=== PATIENT | female | born 1975 | race Caucasian/White ===

== ENCOUNTER 2017-02-12 08:02 | Emergency (ER) | payer MEDICAID ==
[2017-02-12] MEDS ORDERED: cefTRIAXone 1,000 MG in Lidocaine 1% 4 ML IM ONE (08:20)
--- NOTE | 2017-02-12 08:22 | EDM.PDOC ---
ED HPI GENERAL MEDICAL PROBLEM - General Chief Complaint: ENT Problem Stated Complaint: ILL, SORE THROAT,VOMITING Time Seen by Provider: 02/12/17 08:20 Source of Information: Reports: Patient - History of Present Illness INITIAL COMMENTS - FREE TEXT/NARRATIVE: HISTORY AND PHYSICAL: History of present illness: Sore throat increasing in severity over the last 2 weeks patient complains of intermittent fever chills sweats myalgias Some difficulty with solid food no difficulty with liquids, no hot potato voice drooling or trismus Review of systems: As per history of present illness and below otherwise all systems reviewed and negative. Past medical history: As per history of present illness and as reviewed below otherwise noncontributory. Surgical history: As per history of present illness and as reviewed below otherwise noncontributory. Social history: No reported history of drug or alcohol abuse. Family history: As per history of present illness and as reviewed below otherwise noncontributory. Physical exam: HEENT: Atraumatic, normocephalic, pupils reactive, negative for conjunctival pallor or scleral icterus, mucous membranes moist, throat clear, neck supple, nontender, trachea midline. Moderate erythema tonsils 2+ white patchy exudate no abscess Lungs: Clear to auscultation, breath sounds equal bilaterally, chest nontender. Heart: S1S2, regular, negative for clicks, rubs, or JVD. Abdomen: Soft, nondistended, nontender. Negative for masses or hepatosplenomegaly. Negative for costovertebral tenderness. Pelvis: Stable nontender. Genitourinary: Deferred. Rectal: Deferred. Extremities: Atraumatic, negative for cords or calf pain. Neurovascular unremarkable. Neuro: Awake, alert, oriented. Cranial nerves II through XII unremarkable. Cerebellum unremarkable. Motor and sensory unremarkable throughout. Exam nonfocal. Diagnostics: [] Therapeutics: []1 g Rocephin IM Amoxicillin 875 by mouth twice a day #20 no refill Impression: []Acute pharyngitis/tonsillitis Definitive disposition and diagnosis as appropriate pending reevaluation and review of above. Throat Pain Score (Numeric/FACES): 7 - Related Data Allergies Allergy/AdvReac Type Severity Reaction Status Date / Time No Known Allergies Allergy Verified 02/12/17 08:09 Home Meds: Home Meds . 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: None Musculoskeletal History: Reports: None Neurological History: Reports: None Psychiatric History: Reports: None Endocrine/Metabolic History: Reports: None Hematologic History: Reports: None Immunologic History: Reports: None Oncologic (Cancer) History: Reports: None Dermatologic History: Reports: None - Infectious Disease History Infectious Disease History: Reports: None - Past Surgical History Head Surgeries/Procedures: Reports: None HEENT Surgical History: Reports: None Respiratory Surgical History: Reports: None GI Surgical History: Reports: Bariatric Procedure, Other (See Below) Female Surgical History: Reports: Breast Reduction Musculoskeletal Surgical History: Reports: None Dermatological Surgical History: Reports: None Social & Family History - Family History Family Medical History: Noncontributory - Tobacco Use Smoking Status *Q: Never Smoker Second Hand Smoke Exposure: No - Caffeine Use Caffeine Use: Reports: Coffee - Alcohol Use Days Per Week of Alcohol Use: 1 Number of Drinks Per Day: 2 Total Drinks Per Week: 2 - Recreational Drug Use Recreational Drug Use: No ED ROS GENERAL - Review of Systems Review Of Systems: ROS reveals no pertinent complaints other than HPI. ED EXAM, GENERAL - Physical Exam Exam: See Below Course - Vital Signs Last Recorded V/S: Last Vital Signs Temp 36.1 C 02/12/17 08:09 Pulse 106 H 02/12/17 08:09 Resp 18 02/12/17 08:09 BP 120/73 02/12/17 08:09 Pulse Ox 97 02/12/17 08:09 - Orders/Labs/Meds Orders: Active Orders 24 hr Category Date Time Status cefTRIAXone [Rocephin] 1,000 mg Med 02/12/17 08:20 Ordered Lidocaine 1% [Xylocaine-MPF 1%] 4 ml IM ONETIME Departure - Departure Time of Disposition: 08:22 Disposition: Home, Self-Care 01 Condition: Good Clinical Impression: Pharyngitis Clinical Impression: (Ruled Out): Tonsillitis - Discharge Information Referrals: PCP,None [Primary Care Provider] - Additional Instructions: Medication as prescribed Return if symptoms persist or worsen Follow-up with primary care as needed The following information is given to patients seen in the emergency department who are being discharged to home. This information is to outline your options for follow-up care. We provide all patients seen in our emergency department with a follow-up referral. The need for follow-up, as well as the timing and circumstances, are variable depending upon the specifics of your emergency department visit. If you don't have a primary care physician on staff, we will provide you with a referral. We always advise you to contact your personal physician following an emergency department visit to inform them of the circumstance of the visit and for follow-up with them and/or the need for any referrals to a consulting specialist. The emergency department will also refer you to a specialist when appropriate. This referral assures that you have the opportunity for follow-up care with a specialist. All of these measure are taken in an effort to provide you with optimal care, which includes your follow-up. Under all circumstances we always encourage you to contact your private physician who remains a resource for coordinating your care. When calling for follow-up care, please make the office aware that this follow-up is from your recent emergency room visit. If for any reason you are refused follow-up, please contact the [facility] emergency department at and asked to speak to the emergency department charge nurse. - My Orders Last 24 Hours: My Active Orders 02/12/17 08:20 cefTRIAXone [Rocephin] 1,000 mg Lidocaine 1% [Xylocaine-MPF 1%] 4 ml IM ONETIME - Assessment/Plan Last 24 Hours: My Active Orders 02/12/17 08:20 cefTRIAXone [Rocephin] 1,000 mg Lidocaine 1% [Xylocaine-MPF 1%] 4 ml IM ONETIME
[2017-02-12 08:52] VITALS: BP 135/66
== END 2017-02-12 08:50 | disposition home or self-care (01) ==
LOC: MW.ED 08:02
DX: J02.9 Acute pharyngitis, unspecified (principal); Z98.84 Bariatric surgery status
CPT/HCPCS: 96372; 99283; J0696; 99282

== ENCOUNTER 2017-03-11 12:18 | Emergency (ER) | payer MEDICAID ==
[2017-03-11] MEDS ORDERED: Alum Hydrox/Mag Hydrox/Simeth 15 ML, Metoclopramide 5 MG, Lidocaine 2% 5 ML PO ONE ×3 (12:54)
--- NOTE | 2017-03-11 12:57 | EDM.PDOC ---
ED HPI GENERAL MEDICAL PROBLEM - General Chief Complaint: Gastrointestinal Problem Stated Complaint: BAD HEART BURN Time Seen by Provider: 03/11/17 12:54 Source of Information: Reports: Patient History Limitations: Reports: No Limitations - History of Present Illness INITIAL COMMENTS - FREE TEXT/NARRATIVE: HISTORY AND PHYSICAL: []42-year-old female presenting with increased heartburn History of Present Illness: []Patient has had this for some time she's been treated last week with this and a sore throat. 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 Past medical history: As per history of present illness and as reviewed below otherwise noncontributory. Surgical history: As per history of present illness and as reviewed below otherwise noncontributory. Social history: No reported history of drug or alcohol abuse. Family history: As per history of present illness and as reviewed below otherwise noncontributory. Physical exam: Alert and oriented female. speaking well in full sentences without any shortness of breath. She is nontoxic in appearance HEENT: Atraumatic, normocehpalic, pupils reactive, negative for conjunctival pallor or scleral icterus, mucous membranes moist, throat clear, neck supple, nontender, trachea midline. Lungs: Clear to auscultation, breath sounds equal bilaterally, chest non tender. Heart: S1S2, regular, negative for clicks, rubs, or JVD. Abdomen: Soft, nondistended, nontender. Negative for masses or hepatossplenmegaly. Negative for costovertebral tenderness. Pelvis: Stable nontender. Genitourinary: Deferred. Rectal: Deferred Extremities: Atraumatic, negative for cords or calf pain. Neurovascular unremarkable. Neuro: Awake, alert, oriented. Cranial nerves II through XII unremarkable. Cerebellum unremarkable. Motor and sensory unremarkable throughout. Exam nonfocal. Improved greatly with the GI cocktail. Due to your previous history with lap band /gastric bypass surgery and made a referral for gastroenterology to review your case. Diagnostics: [] Therapeutics: [GI cocktail] Impression: [Gastritis] Plan: [Discharged to home Referral to motion picture set worker at [facility]] Definitive disposition and diagnosis as appropriate pending reevaluation and review of above. Epigastric Pain Score (Numeric/FACES): 8 - Related Data Allergies Allergy/AdvReac Type Severity Reaction Status Date / Time No Known Allergies Allergy Verified 02/12/17 08:09 Home Meds: Home Meds . [No Known Home Meds] 10/15/15 [History] Past Medical History - Past Health History Medical/Surgical History: Denies Medical/Surgical History HEENT History: Reports: None Cardiovascular History: Reports: None Respiratory History: Reports: None Gastrointestinal History: Reports: None Genitourinary History: Reports: None CLINICAL TRIAL EDUCATOR History: Reports: None Musculoskeletal History: Reports: None Neurological History: Reports: None Psychiatric History: Reports: None Endocrine/Metabolic History: Reports: None Hematologic History: Reports: None Immunologic History: Reports: None Oncologic (Cancer) History: Reports: None Dermatologic History: Reports: None - Infectious Disease History Infectious Disease History: Reports: None - Past Surgical History Head Surgeries/Procedures: Reports: None HEENT Surgical History: Reports: None Respiratory Surgical History: Reports: None GI Surgical History: Reports: Bariatric Procedure, Other (See Below) Female Surgical History: Reports: Breast Reduction Musculoskeletal Surgical History: Reports: None Dermatological Surgical History: Reports: None Social & Family History - Family History Family Medical History: Noncontributory - Tobacco Use Smoking Status *Q: Never Smoker Second Hand Smoke Exposure: No - Caffeine Use Caffeine Use: Reports: Coffee - Alcohol Use Days Per Week of Alcohol Use: 1 Number of Drinks Per Day: 2 Total Drinks Per Week: 2 - Recreational Drug Use Recreational Drug Use: No ED ROS GENERAL - Review of Systems Review Of Systems: ROS reveals no pertinent complaints other than HPI. ED EXAM, GI/ABD - Physical Exam Exam: See Below (see dictation) Course - Vital Signs Last Recorded V/S: Last Vital Signs Temp 36.9 C 03/11/17 12:46 Pulse 90 03/11/17 12:46 Resp 18 03/11/17 12:46 BP 113/75 03/11/17 12:46 Pulse Ox 97 03/11/17 12:46 - Orders/Labs/Meds Meds: Medications Discontinued Medications Generic Name Dose Route Start Last Admin Trade Name Freq PRN Reason Stop Dose Admin Al Hydroxide/Mg Hydroxide 15 0 ml 03/11/17 12:54 03/11/17 13:08 ml/ Metoclopramide HCl 5 mg/ PO 03/11/17 12:55 25 each Lidocaine HCl 5 ml ONETIME ONE Administration Departure - Departure Time of Disposition: 13:18 Disposition: Home, Self-Care 01 Condition: Good Clinical Impression: Gastritis - Discharge Information Referrals: PCP,None [Primary Care Provider] - Sintia Esposito [Ordering Only Provider] - Forms: ED Department Discharge Additional Instructions: The following information is given to patients seen in the emergency department who are being discharged to home. This information is to outline your options for follow-up care. We provide all patients seen in our emergency department with a follow-up referral. The need for follow-up, as well as the timing and circumstances, are variable depending upon the specifics of your emergency department visit. If you don't have a primary care physician on staff, we will provide you with a referral. We always advise you to contact your personal physician following an emergency department visit to inform them of the circumstance of the visit and for follow-up with them and/or the need for any referrals to a consulting specialist. The emergency department will also refer you to a specialist when appropriate. This referral assures that you have the opportunity for followup care with a specialist. All of these measure are taken in an effort to provide you with optimal care, which includes your followup. Under all circumstances we always encourage you to contact your private physician who remains a resource for coordinating your care. When calling for followup care, please make the office aware that this follow-up is from your recent emergency room visit. If for any reason you are refused follow-up, please contact the [facility] emergency department at and asked to speak to the emergency department charge nurse. Your gastric pain was relieved with the use of a GI cocktail This is a combination of Mylanta or Riopan lidocaine added to Referral has been made for you to see motion picture set worker Sintia Esposito MD [phone] [facility] [address] [place] [address], [place] [id number]
[2017-03-11 13:34] VITALS: BP 115/75
== END 2017-03-11 13:30 | disposition home or self-care (01) ==
LOC: MW.ED 12:18
DX: K29.70 Gastritis, unspecified, without bleeding (principal); Z98.84 Bariatric surgery status; Z98.890 Other specified postprocedural states
CPT/HCPCS: 99283; A9270; 99282

== ENCOUNTER 2017-07-05 20:29 | Observation (INO) | payer MEDICAID ==
--- NOTE | 2017-07-05 20:42 | EDM.PDOC ---
ED HPI GENERAL MEDICAL PROBLEM - General Stated Complaint: PT LT SIDE NUMB Time Seen by Provider: 07/05/17 20:36 - History of Present Illness INITIAL COMMENTS - FREE TEXT/NARRATIVE: HISTORY AND PHYSICAL: History of present illness: Patient 42-year-old female with no significant past medical history who presents with concern of left-sided pain that goes from her inferior extremitie up to her Left arm shoulder and face she also complains of some paresthesia in the same distribution she denies trauma denies chest pain palpitations shortness of breath visual disturbance or any other numbness weakness or neurological sign or symptom patient states the symptoms began approximately 5:00 PM Review of systems: As per history of present illness and below otherwise all systems reviewed and negative. Past medical history: As per history of present illness and as reviewed below otherwise noncontributory. Surgical history: As per history of present illness and as reviewed below otherwise noncontributory. Social history: No reported history of drug or alcohol abuse. Family history: As per history of present illness and as reviewed below otherwise noncontributory. Physical exam: HEENT: Atraumatic, normocephalic, pupils reactive, negative for conjunctival pallor or scleral icterus, mucous membranes moist, throat clear, neck supple, nontender, trachea midline. Lungs: Clear to auscultation, breath sounds equal bilaterally, chest nontender. Heart: S1S2, regular, negative for clicks, rubs, or JVD. Abdomen: Soft, nondistended, nontender. Negative for masses or hepatosplenomegaly. Negative for costovertebral tenderness. Pelvis: Stable nontender. Genitourinary: Deferred. Rectal: Deferred. Extremities: Atraumatic, negative for cords or calf pain. Neurovascular unremarkable. Neuro: Awake, alert, oriented. Cranial nerves II through XII unremarkable. Cerebellum unremarkable. Motor and sensory unremarkable throughout. Exam nonfocal. Diagnostics: CBC CMP and troponin PT/INR chest x-ray EKG CT brain Therapeutics: IV O2 monitor Impression: #1 left sided pain/paresthesia etiology being determined Definitive disposition and diagnosis as appropriate pending reevaluation and review of above. 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: None Musculoskeletal History: Reports: None Neurological History: Reports: None Psychiatric History: Reports: None Endocrine/Metabolic History: Reports: None Hematologic History: Reports: None Immunologic History: Reports: None Oncologic (Cancer) History: Reports: None Dermatologic History: Reports: None - Infectious Disease History Infectious Disease History: Reports: None - Past Surgical History Head Surgeries/Procedures: Reports: None HEENT Surgical History: Reports: None Respiratory Surgical History: Reports: None GI Surgical History: Reports: Bariatric Procedure, Other (See Below) Female Surgical History: Reports: Breast Reduction Musculoskeletal Surgical History: Reports: None Dermatological Surgical History: Reports: None Social & Family History - Family History Family Medical History: Noncontributory - Tobacco Use Smoking Status *Q: Never Smoker Second Hand Smoke Exposure: No - Caffeine Use Caffeine Use: Reports: Coffee - Alcohol Use Days Per Week of Alcohol Use: 1 Number of Drinks Per Day: 2 Total Drinks Per Week: 2 - Recreational Drug Use Recreational Drug Use: No ED ROS GENERAL - Review of Systems Review Of Systems: ROS reveals no pertinent complaints other than HPI. ED EXAM, GENERAL - Physical Exam Exam: See Below (See dictation) Course - Vital Signs Last Recorded V/S: Last Vital Signs Temp 36.6 C 07/05/17 20:38 Pulse 76 07/05/17 20:38 Resp 14 07/05/17 20:38 BP 127/79 07/05/17 20:38 Pulse Ox 97 07/05/17 20:38 - Orders/Labs/Meds Orders: Active Orders 24 hr Category Date Time Status EKG Documentation Completion [RC] STAT Care 07/05/17 21:18 Active Chest 1V Frontal [CR] Stat Exams 07/05/17 21:18 Taken Head wo Cont [CT] Stat Exams 07/05/17 Taken Departure - Departure Time of Disposition: 21:26 Disposition: Refer to Observation Condition: Good Clinical Impression: Paresthesia - Discharge Information Referrals: PCP,None [Primary Care Provider] - - My Orders Last 24 Hours: My Active Orders 07/05/17 Head wo Cont [CT] Stat 01/23/18 21:18 EKG Documentation Completion [RC] STAT Chest 1V Frontal [CR] Stat - Assessment/Plan Last 24 Hours: My Active Orders 07/05/17 Head wo Cont [CT] Stat 07/05/17 21:18 EKG Documentation Completion [RC] STAT Chest 1V Frontal [CR] Stat
[2017-07-05 21:49] LABS: CHLORIDE,CL 101 mmol/L (98-110); SODIUM,NA 134 mmol/L (136-146)
[2017-07-05] MEDS ORDERED: Aspirin 325 MG Tab.EC PO STA (23:31)
[2017-07-05] MEDS: Acetaminophen 325 MG Tab PO PRN (23:51)
[2017-07-06] MEDS: Acetaminophen 325 MG Tab PO PRN (08:20)
--- NOTE | 2017-07-06 11:47 | PCM.HP ---
H&P History of Present Illness - General Date of Service: 07/06/17 Admit Problem/Dx: Admission Diagnosis/Problem Admission Diagnosis/Problem Paresthesia History Limitations: Reports: No Limitations - History of Present Illness Initial Comments - Free Text/Narative: This is a 42-year-old female with no significant past medical history that presented to the emergency department with a chief complaint of left-sided weakness. After talking to the patient, she tells me that since approximately 7 PM yesterday evening, she has been feeling a headache, along with weakness in the left hand starting from the shoulder along with her left leg. She combines this with a headache as well. She also goes on to say that she experiences poorly localized shoulder pain that may involve her chest when she moves her left shoulder. Shoulder pain is dull, 5 out of 10 and persistent since 7:00. She tells me that this began when she was standing up in her kitchen and began to feel lightheaded. Denies any syncope or any seizure activity. She denies any sick contacts, recent travel. Denies any fevers chills. She had an episode of vomiting while in the emergency department. ER course: Head CT unremarkable CBC mild normocytic anemia hemoglobin of 11.9 Troponin 1 negative EKG negative Head CT unremarkable Chest x-ray unremarkable After going through her chart, it does appear that this patient has had similar symptoms in the past despite her telling me that this is a completely new onset of headache and left-sided weakness. head/neck Pain Score (Numeric/FACES): 6 - Related Data Allergies/Adverse Reactions: Allergies Allergy/AdvReac Type Severity Reaction Status Date / Time No Known Allergies Allergy Verified 07/05/17 20:55 Home Medications: Home Meds Otc Antacid 07/05/17 [History] Past Medical History - Past Health History Medical/Surgical History: Denies Medical/Surgical History HEENT History: Reports: None Cardiovascular History: Reports: None Respiratory History: Reports: None Gastrointestinal History: Reports: None Genitourinary History: Reports: None VALIDATION SPECIALIST History: Reports: None Musculoskeletal History: Reports: None Neurological History: Reports: None Psychiatric History: Reports: None Endocrine/Metabolic History: Reports: None Hematologic History: Reports: None Immunologic History: Reports: None Oncologic (Cancer) History: Reports: None Dermatologic History: Reports: None - Infectious Disease History Infectious Disease History: Reports: None - Past Surgical History Head Surgeries/Procedures: Reports: None HEENT Surgical History: Reports: None Respiratory Surgical History: Reports: None GI Surgical History: Reports: Bariatric Procedure, Other (See Below) Female Surgical History: Reports: Breast Reduction Musculoskeletal Surgical History: Reports: None Dermatological Surgical History: Reports: None Social & Family History - Family History Family Medical History: Noncontributory - Tobacco Use Smoking Status *Q: Never Smoker Second Hand Smoke Exposure: No - Caffeine Use Caffeine Use: Reports: Coffee - Alcohol Use Days Per Week of Alcohol Use: 1 Number of Drinks Per Day: 2 Total Drinks Per Week: 2 - Recreational Drug Use Recreational Drug Use: No H&P Review of Systems - Review of Systems: Review Of Systems: See Below General: Reports: Weakness HEENT: Reports: Headaches Pulmonary: Reports: No Symptoms Cardiovascular: Reports: Chest Pain Gastrointestinal: Reports: No Symptoms Genitourinary: Reports: No Symptoms Musculoskeletal: Reports: No Symptoms Skin: Reports: No Symptoms Psychiatric: Reports: No Symptoms Neurological: Reports: Headache, Weakness Hematologic/Lymphatic: Reports: No Symptoms Immunologic: Reports: No Symptoms Exam - Exam Exam: See Below - Vital Signs Vital Signs: Last Vital Signs Temp 36.6 C 07/06/17 08:00 Pulse 70 07/06/17 08:00 Resp 18 07/06/17 08:00 BP 98/59 L 07/06/17 08:00 Pulse Ox 96 07/06/17 08:00 Weight: 68.765 kg - Exam General: Alert, Oriented, Cooperative HEENT: Conjunctiva Clear, EACs Clear Neck: Supple, Trachea Midline Lungs: Clear to Auscultation, Normal Respiratory Effort Cardiovascular: Regular Rate, Regular Rhythm, Normal S1 GI/Abdominal Exam: Normal Bowel Sounds, Soft Back Exam: Normal Inspection, Full Range of Motion Extremities: Normal Inspection, Normal Range of Motion Peripheral Pulses: 3+: Posterior Tibial (L), Posterior Tibial (R) Neurological: Cranial Nerves Intact, Reflexes Equal Bilateral, Strength Equal Bilateral, Normal Gait, Normal Speech, Normal Tone, Sensation Intact. No: Focal Deficit, Babinski, Hyperreflexia, Hyporeflexia Neuro Extensive - Mental Status: Alert, Oriented x3, Normal Mood/Affect, Normal Cognition, Memory Intact Neuro Extensive - Motor, Sensory, Reflexes: CN II-XII Intact, Normal Gait, Normal Reflexes Psychiatric: Alert, Normal Affect, Normal Mood - Patient Data Lab Results Last 24 hrs: Laboratory Results - last 24 hr 07/06/17 07/06/17 Range/Units 03:18 09:09 Troponin I < 0.10 < 0.10 (0.0-0.29) NG/ML Result Diagrams: 07/05/17 21:18 07/05/17 21:18 *Q Meaningful Use (ADM) - VTE *Q VTE Criteria *Q: - Stroke *Q Stroke Criteria *Q: - AMI *Q AMI Criteria *Q: Problem List Initiated/Reviewed/Updated: Yes Orders Last 24hrs: Active Orders 24 hr Category Date Time Status Cardiac Monitoring [RC] . DIRECTED Care 07/05/17 22:20 Active Regular Diet [DIET] Diet 07/06/17 Breakfast Active Venous Doppler Lwr Ext Lt [US] Urgent Exams 07/06/17 10:01 Ordered Acetaminophen [Tylenol] Med 07/05/17 23:32 Active 650 mg PO Q6H PRN Medication Orders Acetaminophen (Tylenol) 650 mg PO Q6H PRN PRN Reason: Pain Last Admin: 07/06/17 08:20 Dose: 650 mg Admin: 07/05/17 23:51 Dose: 650 mg Assessment/Plan Comment:: Assessment: #1. Headache with left-sided weakness #2. Left shoulder pain with possible chest pain #3. ACS rule out #4. Mild normocytic anemia #5. History of headaches and left-sided weakness Plan: #1. Admit to the floor for observation. Vital signs per floor routine. Cardiac telemetry #2. Full dose aspirin #3. Serum beta hCG prior to MRI #4. MRI brain with and without contrast #5. Troponin 3 #6. I touched base with neurology and discussed this case. It appears that this patient has been seen by neurology in the past as an outpatient for similar symptoms however she no showed when an MRI was ordered. Working diagnosis for now is likely migraine with sensory symptoms. However, we will see what the MRI shows and proceed accordingly. #7. B12, TSH
--- NOTE | 2017-07-06 11:51 | US ---
ULTRASOUND EXAMINATION OF the left lower extremity WITH DOPPLER HISTORY: Pain FINDINGS: Examination of the left leg was performed from the groin to the calf region. All visualized segments including common femoral, proximal greater saphenous, superficial femoral, popliteal and calf veins appear patent with good compressibility and augmentation. There is no evidence of deep vein thrombos is. IMPRESSION: No evidence of a DVT.
[2017-07-06] MEDS ORDERED: Gadobenate Dimeglumine 529 MG/ML 20 ML SDV IVPUSH STA (11:55)
[2017-07-06] MEDS ORDERED: Ondansetron 4 MG/2 ML SDV IVPUSH PRN (12:04)
--- NOTE | 2017-07-06 13:54 | MR ---
EXAMINATION: MRI of the brain with and without contrast. TECHNIQUE: Multiplanar and multisequence imaging of the brain without and following 13 cc of Multiha nce contrast. HISTORY: Left-sided weakness. FINDINGS: Cerebral hemispheres and the deep nuclei are without hemorrhage, mass, edema, gliosis, enhancement or atrophy. No extraaxial collections or hemorrhage. The ventricular system is of normal size and con figuration without hydrocephalus. No evidence for globe flattening, small ventricles or partially emp ty sella to suggest pseudotumor cerebri. No abnormal diffusion restriction. Brainstem and cerebellum are without hemorrhage, mass, edema, gliosis, enhancement or atrophy. Carot id basilar artery flow voids are intact. The otomastoid airspaces are clear. No internal auditory c anal or cerebellopontine angle masses or enhancement. Moderate mucus retention cyst within the left m axillary sinus. Globes, optic nerves, orbital apices, optic chiasm, optic tracts, and visual cortices are unremarkab le. The pituitary and sella turcica are unremarkable. No meningeal enhancement. The craniocervical junction is unremarkable. No siderosis or evidence of vascular malformation. The calvarium is inta ct. IMPRESSION: 1. No acute intracranial findings.
[2017-07-06] MEDS ORDERED: diphenhydrAMINE 50 MG/ML SDV IVPUSH STA (14:15)
[2017-07-06] MEDS ORDERED: Prochlorperazine 10 MG in Sodium Chloride 0.9% 50 ML IV STA (14:15)
--- NOTE | 2017-07-06 14:21 | PCM.DCSUM1 ---
Discharge Summary - Hospital Course Free Text/Narrative:: Admission date: June Discharge date: July 06, 2017 Admission diagnosis: #1. Left sided weakness #2. ACS Rule out #3. Headache Discharge Diagnosis: #1. Migraine with sensory symptoms #2. ACS ruled out #3. History of migraines Hospital course: 42 year old female with a history of migraines that presented complaining of left sided weakness and possible chest pain as well. Emergency room workup included a negative head CT. She was given a full dose aspirin. Patient was admitted for possible stroke/ACS work up. Patients case was discussed with neurology who recommended a brain MRI for possible infarction. This result was negative. Troponin x3 was negative. No events on telemetry. Patient had no chest pain at the time of discharge. Her headache was less severe and tolerable. Advised to return if symptoms worsen or return. She is to follow up with Dr. Banks, neurology and PCP, Dr. Post. - Discharge Data Discharge Date: 07/06/17 Discharge Disposition: Home, Self-Care 01 Condition: Fair - Patient Instructions Diet: Usual Diet as Tolerated Activity: As Tolerated Notify Provider of: Increased Pain, Nausea and/or Vomiting Other/Special Instructions: headache - Discharge Plan Home Medications: Home Meds Otc Antacid 07/05/17 [History] Forms: ED Department Discharge Referrals: PCP,Ellis [Primary Care Provider] - Mandeep Post MD [Resident] - Radha Banks MD [Physician] - - Discharge Summary/Plan Comment Discharge Summary/Plan Comment: Admission date: June Discharge date: July 06, 2017 Admission diagnosis: #1. Left sided weakness #2. ACS Rule out #3. Headache Discharge Diagnosis: #1. Migraine with sensory symptoms #2. ACS ruled out #3. History of migraines Hospital course: 42 year old female with a history of migraines that presented complaining of left sided weakness and possible chest pain as well. Emergency room workup included a negative head CT. She was given a full dose aspirin. Patient was admitted for possible stroke/ACS work up. Patients case was discussed with neurology who recommended a brain MRI for possible infarction. This result was negative. Troponin x3 was negative. No events on telemetry. Patient had no chest pain at the time of discharge. Her headache was less severe and tolerable. Advised to return if symptoms worsen or return. She is to follow up with Dr. Banks, neurology and PCP, Dr. Post. - Patient Data Vitals - Most Recent: Last Vital Signs Temp 36.6 C 07/06/17 08:00 Pulse 70 07/06/17 08:00 Resp 18 07/06/17 08:00 BP 98/59 L 07/06/17 08:00 Pulse Ox 96 07/06/17 08:00 Weight - Most Recent: 68.765 kg I&O - Last 24 hours: Intake & Output 07/05/17 07/06/17 07/06/17 22:59 06:59 14:59 Intake Total 200 Output Total 900 Balance -700 Lab Results - Last 24 hrs: Laboratory Results - last 24 hr 07/06/17 07/06/17 07/06/17 Range/Units 03:18 09:09 12:40 Troponin I < 0.10 < 0.10 (0.0-0.29) NG/ML Vitamin B12 (200-1100) PG/ML TSH 3rd Generation 1.42 (0.47-5.0) uIU/mL 07/06/17 Range/Units 12:40 Troponin I (0.0-0.29) NG/ML Vitamin B12 449 (200-1100) PG/ML TSH 3rd Generation (0.47-5.0) uIU/mL Med Orders - Current: Current Medications Acetaminophen (Tylenol) 650 mg PO Q6H PRN PRN Reason: Pain Last Admin: 07/06/17 08:20 Dose: 650 mg Diphenhydramine HCl (Benadryl) 25 mg IVPUSH ONETIME STA Stop: 07/06/17 14:16 Enoxaparin Sodium (Lovenox) 40 mg SUBCUT DAILY GENNY Prochlorperazine Edisylate 10 (mg/ Sodium Chloride) 52 mls @ 150 mls/hr IV ONETIME STA Stop: 07/06/17 14:35 Ondansetron HCl (Zofran) 4 mg IVPUSH Q4H PRN PRN Reason: Nausea Discontinued Medications Aspirin (Ecotrin) 325 mg PO STAT STA Stop: 07/05/17 23:32 Last Admin: 07/05/17 23:50 Dose: 325 mg Gadobenate Dimeglumine (Multihance) 20 ml IVPUSH ONETIME STA Stop: 07/06/17 11:56 Last Admin: 07/06/17 12:05 Dose: 13 ml *Q Meaningful Use (DIS) - VTE *Q VTE Criteria *Q: - Stroke *Q Stroke Criteria *Q: - AMI *Q AMI Criteria *Q:
[2017-07-06] MEDS ORDERED: Prochlorperazine 10 MG/2 ML SDV IV ONE (14:30)
[2017-07-06 18:09] VITALS: BP 100/54
[2017-07-07] MEDS ORDERED: Enoxaparin 40 MG/0.4 ML Syringe SUBCUT SCH (09:00)
--- NOTE | 2017-07-07 15:45 | CT ---
EXAM DATE: 07/05/17 PATIENT'S AGE: 42 Patient: CHENCHO ABBOTT Facility: [place], [place] Site Site : 1975 Study: CT Head STROKE PROTOCOL WO CONT [id number]/[id number] 8:55:55 PM Ordering Physician: TOÑO ANDRADE MD Final Report: INDICATION: Left-sided weakness TECHNIQUE: CT head without contrast. COMPARISON: Ascites 4 slice 60. FINDINGS: CSF spaces: Within normal limits for age. Brain parenchyma: The piña-white differentiation is normal. No sign of mass, hemorrhage, or midline shift. Skull base and calvarium: Probable left maxillary sinus retention cyst The visualized orbits are grossly unremarkable. No skull fractures. IMPRESSION: No acute intracranial abnormalities. Please note that all CT scans at this facility use dose modulation, iterative reconstruction, and/or weight-based dosing when appropriate to reduce radiation dose to as low as reasonably achievable. Dictated by Federico Franco MD @ Jul 05 2017 8:59PM ----- ADDENDUM ----- Confirmation of report received on 07/05/2017 at 9:12 p.m. with KATHY Brooks: Dictated by Federico Franco MD @ Jul 05 2017 9:43PM (Electronic Signature) Report Signed by Proxy. LISA
--- NOTE | 2017-07-07 15:45 | CR ---
EXAM DATE: 07/05/17 PATIENT'S AGE: 42 Patient: CHENCHO ABBOTT Facility: [place], [place] Site . Site : 1975 Study: XRay Chest [id number]/23/2018 9:23:21 PM Ordering Physician: Jhonny Eli Final Report: HISTORY: Stroke code, left-sided weakness starting at noon. FINDINGS: AP portable chest radiograph is compared with 27 Oct 2015. The cardiac silhouette is acceptable size. Pulmonary vasculature is free of cephalization. No lobar consolidation or pleural effusion is seen. Bony structures are normal for age. IMPRESSION: No acute cardiopulmonary disease or infiltrate. Dictated by Sarah Cazares MD @ 07/05/2017 9:48:02 PM Dictated by: Sarah Cazares MD @ 07/05/2017 21:48:15 (Electronic Signature) Report Signed by Proxy. [facility] HOSPITALKaylene
== END 2017-07-06 18:10 | disposition home or self-care (01) ==
LOC: MW.ED 20:29 → MW.MS 22:06
PROVIDERS: ADMIT Internal Medicine; ATTEND Internal Medicine
DX: G43.109 Migraine with aura, not intractable, without status migrainosus (principal); D64.9 Anemia, unspecified
CPT/HCPCS: 36415; 70450; 70553; 71045; 80053; 82553; 82607; 83735; 84443; 84484; 84703; 85025; 85610; 93005; 93971; 96374; 96375; 99285; A9270; A9577; G0378; J0780; J1200; J2405; 99284

== ENCOUNTER 2019-02-22 15:35 | Emergency (ER) | payer BC ==
[2019-02-22] MEDS ORDERED: Sodium Chloride 0.9% 1,000 ML IV ONE (16:06)
[2019-02-22] MEDS ORDERED: Ketorolac 30 MG/ML SDV IVPUSH ONE (16:06)
[2019-02-22] MEDS ORDERED: Ondansetron 4 MG/2 ML SDV IVPUSH ONE (16:06)
--- NOTE | 2019-02-22 16:15 | EDM.PDOC ---
ED HPI GENERAL MEDICAL PROBLEM - General Chief Complaint: General Stated Complaint: NOT FEELING WELL Time Seen by Provider: 02/22/19 15:40 Source of Information: Reports: Patient History Limitations: Reports: No Limitations - History of Present Illness INITIAL COMMENTS - FREE TEXT/NARRATIVE: HISTORY AND PHYSICAL: History of present illness: Patient is a 44-year-old female presents to the ED today with concern of left- sided abdominal pain, nausea, and cough 1-1/2 weeks. Patient states a week ago she was seen in the clinic and had some lab work done and was told she had a bacterial infection but she is unsure what the infection was was placed on amoxicillin. Patient states she just finished her amoxicillin but states she's not feeling any better. Patient states that she has had a few day decrease in her appetite over the past couple days because she feels continuously nauseous. Patient states she does have a lap band in place. Patient denies any health history. Patient denies fever, chills, chest pain, shortness of breath. Denies headache, neck stiff ness, change in vision, syncope, or near syncope. Denies vomiting, diarrhea, constipation, or dysuria. Has not noted any blood in urine or stool. Review of systems: As per history of present illness and below otherwise all systems reviewed and negative. Past medical history: As per history of present illness and as reviewed below otherwise noncontributory. Surgical history: As per history of present illness and as reviewed below otherwise noncontributory. Social history: See social history for further information Family history: As per history of present illness and as reviewed below otherwise noncontributory. Physical exam: General: Patient is alert, oriented, and in no acute distress. Patient sitting comfortably on exam table. HEENT: Atraumatic, normocephalic, pupils equal and reactive bilaterally, negative for conjunctival pallor or scleral icterus, mucous membranes moist, TMs normal bilaterally, throat clear, neck supple, nontender, trachea midline. No drooling or trismus noted. No meningeal signs. No hot potato voice noted. Lungs: Clear to auscultation, breath sounds equal bilaterally, chest nontender. Heart: S1S2, regular rate and rhythm without overt murmur Abdomen: Soft, nondistended, mild tenderness to the left-sided abdomen. Scarring consistent with surgical history. Negative for masses or hepatosplenomegaly. Negative for costovertebral tenderness. Pelvis: Stable nontender. Genitourinary: Deferred. Rectal: Deferred. Skin: Intact, warm, dry. No lesions or rashes noted. Extremities: Atraumatic, negative for cords or calf pain. Neurovascular unremarkable. Neuro: Awake, alert, oriented. Cranial nerves II through XII unremarkable. Cerebellum unremarkable. Motor and sensory unremarkable throughout. Exam nonfocal. Notes: Discussed the importance for follow-up with primary care provider Voices understanding and is agreeable to plan of care. Denies any further questions or concerns at this time. Diagnostics: CBC, CMP, UA, hCG, chest x-ray, EKG, lipase, abdominal pelvic CT Therapeutics: Saline, Zofran, Toradol Prescription: None Impression: Left sided abdominal pain Constipation Anemia Plan: 1. Drink one half bottle of magnesium citrate tonight. Do not have a bowel movement by tomorrow morning drink the other one half bottle. 2. Follow-up with your primary care provider as discussed. Return to the ED as needed and as discussed. 3. You can alternate ibuprofen and Tylenol as directed for pain and discomfort. Definitive disposition and diagnosis as appropriate pending reevaluation and review of above. Generalized Pain Score (Numeric/FACES): 7 - Related Data Allergies Allergy/AdvReac Type Severity Reaction Status Date / Time No Known Allergies Allergy Verified 02/22/19 16:03 Home Meds: Home Meds . 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 Musculoskeletal History: Reports: None Neurological History: Reports: None Psychiatric History: Reports: None Endocrine/Metabolic History: Reports: None Hematologic History: Reports: None Immunologic History: Reports: None Oncologic (Cancer) History: Reports: None Dermatologic History: Reports: None - Infectious Disease History Infectious Disease History: Reports: None - Past Surgical History Head Surgeries/Procedures: Reports: None HEENT Surgical History: Reports: None Respiratory Surgical History: Reports: None GI Surgical History: Reports: Bariatric Procedure, Other (See Below) Female Surgical History: Reports: Breast Reduction, Section Musculoskeletal Surgical History: Reports: None Dermatological Surgical History: Reports: None Social & Family History - Family History Family Medical History: Noncontributory - Tobacco Use Smoking Status *Q: Never Smoker - Caffeine Use Caffeine Use: Reports: Coffee - Recreational Drug Use Recreational Drug Use: No ED ROS GENERAL - Review of Systems Review Of Systems: ROS reveals no pertinent complaints other than HPI. ED EXAM, GENERAL - Physical Exam Exam: See Below (See dictation) Course - Vital Signs Last Recorded V/S: Last Vital Signs Temp 36.9 C 02/22/19 15:58 Pulse 79 02/22/19 15:58 Resp 18 02/22/19 15:58 BP 114/80 02/22/19 15:58 Pulse Ox 100 02/22/19 15:58 - Orders/Labs/Meds Orders: Active Orders 24 hr Category Date Time Status EKG Documentation Completion [RC] STAT Care 02/22/19 16:07 Active Labs: Laboratory Tests 02/22/19 02/22/19 02/22/19 Range/Units 16:18 16:18 16:18 WBC 6.27 (4.0-11.0) K/uL RBC 3.95 L (4.30-5.90) M/uL Hgb 10.5 L (12.0-16.0) g/dL Hct 34.2 L (36.0-46.0) % MCV 86.6 (80.0-98.0) fL MCH 26.6 L (27.0-32.0) pg MCHC 30.7 L (31.0-37.0) g/dL RDW Std Deviation 57.4 (28.0-62.0) fl RDW Coeff of Rosalind 18 H (11.0-15.0) % Plt Count 325 (150-400) K/uL MPV 9.30 (7.40-12.00) fL Neut % (Auto) 64.4 (48.0-80.0) % Lymph % (Auto) 26.5 (16.0-40.0) % Owen % (Auto) 7.5 (0.0-15.0) % Eos % (Auto) 1.0 (0.0-7.0) % Baso % (Auto) 0.6 (0.0-1.5) % Neut # (Auto) 4.0 (1.4-5.7) K/uL Lymph # (Auto) 1.7 (0.6-2.4) K/uL Owen # (Auto) 0.5 (0.0-0.8) K/uL Eos # (Auto) 0.1 (0.0-0.7) K/uL Baso # (Auto) 0.0 (0.0-0.1) K/uL Nucleated RBC % 0.0 /100WBC Nucleated RBCs # 0 K/uL Sodium 138 (136-145) mmol/L Potassium 3.6 (3.5-5.1) mmol/L Chloride 103 (98-107) mmol/L Carbon Dioxide 25.9 (21.0-32.0) mmol/L BUN 9 (7.0-18.0) mg/dL Creatinine 0.8 (0.6-1.0) mg/dL Est Cr Clr Drug Dosing 70.24 mL/min Estimated GFR (MDRD) > 60.0 ml/min Glucose 88 (74-106) mg/dL Calcium 9.3 (8.5-10.1) mg/dL Total Bilirubin 0.2 (0.2-1.0) mg/dL AST 11 L (15-37) IU/L ALT 13 L (14-63) IU/L Alkaline Phosphatase 40 L (46-116) U/L Total Protein 7.7 (6.4-8.2) g/dL Albumin 3.3 L (3.4-5.0) g/dL Globulin 4.4 H (2.6-4.0) g/dL Albumin/Globulin Ratio 0.8 L (0.9-1.6) Lipase 130 (73-393) U/L HCG, Qual NEGATIVE (NEG) Urine Color Urine Appearance Urine pH (5.0-8.0) Ur Specific [place] (1.001-1.035) Urine Protein (NEGATIVE) mg/dL Urine Glucose (UA) (NEGATIVE) mg/dL Urine Ketones (NEGATIVE) mg/dL Urine Occult Blood (NEGATIVE) Urine Nitrite (NEGATIVE) Urine Bilirubin (NEGATIVE) Urine Urobilinogen (<2.0) EU/dL Ur Leukocyte Esterase (NEGATIVE) 02/22/19 Range/Units 16:23 WBC (4.0-11.0) K/uL RBC (4.30-5.90) M/uL Hgb (12.0-16.0) g/dL Hct (36.0-46.0) % MCV (80.0-98.0) fL MCH (27.0-32.0) pg MCHC (31.0-37.0) g/dL RDW Std Deviation (28.0-62.0) fl RDW Coeff of Rosalind (11.0-15.0) % Plt Count (150-400) K/uL MPV (7.40-12.00) fL Neut % (Auto) (48.0-80.0) % Lymph % (Auto) (16.0-40.0) % Owen % (Auto) (0.0-15.0) % Eos % (Auto) (0.0-7.0) % Baso % (Auto) (0.0-1.5) % Neut # (Auto) (1.4-5.7) K/uL Lymph # (Auto) (0.6-2.4) K/uL Owen # (Auto) (0.0-0.8) K/uL Eos # (Auto) (0.0-0.7) K/uL Baso # (Auto) (0.0-0.1) K/uL Nucleated RBC % /100WBC Nucleated RBCs # K/uL Sodium (136-145) mmol/L Potassium (3.5-5.1) mmol/L Chloride (98-107) mmol/L Carbon Dioxide (21.0-32.0) mmol/L BUN (7.0-18.0) mg/dL Creatinine (0.6-1.0) mg/dL Est Cr Clr Drug Dosing mL/min Estimated GFR (MDRD) ml/min Glucose (74-106) mg/dL Calcium (8.5-10.1) mg/dL Total Bilirubin (0.2-1.0) mg/dL AST (15-37) IU/L ALT (14-63) IU/L Alkaline Phosphatase (46-116) U/L Total Protein (6.4-8.2) g/dL Albumin (3.4-5.0) g/dL Globulin (2.6-4.0) g/dL Albumin/Globulin Ratio (0.9-1.6) Lipase (73-393) U/L HCG, Qual (NEG) Urine Color YELLOW Urine Appearance SLT CLOUDY Urine pH 6.5 (5.0-8.0) Ur Specific [place] >= 1.030 (1.001-1.035) Urine Protein NEGATIVE (NEGATIVE) mg/dL Urine Glucose (UA) NEGATIVE (NEGATIVE) mg/dL Urine Ketones NEGATIVE (NEGATIVE) mg/dL Urine Occult Blood NEGATIVE (NEGATIVE) Urine Nitrite NEGATIVE (NEGATIVE) Urine Bilirubin NEGATIVE (NEGATIVE) Urine Urobilinogen 1.0 (<2.0) EU/dL Ur Leukocyte Esterase NEGATIVE (NEGATIVE) Meds: Medications Discontinued Medications Generic Name Dose Route Start Last Admin Trade Name Freq PRN Reason Stop Dose Admin Sodium Chloride 1,000 mls @ 999 mls/hr 02/22/19 16:06 02/22/19 16:19 Normal Saline IV 02/22/19 17:06 999 mls/hr BOLUS ONE Administration Iopamidol 70 ml 02/22/19 17:35 02/22/19 17:36 Isovue Multipack-370 (76%) IVPUSH 02/22/19 17:36 70 ml ONETIME STA Administration Ketorolac Tromethamine 30 mg 02/22/19 16:06 02/22/19 16:19 Toradol IVPUSH 02/22/19 16:07 30 mg ONETIME ONE Administration Ondansetron HCl 4 mg 02/22/19 16:06 02/22/19 16:19 Zofran IVPUSH 02/22/19 16:07 4 mg ONETIME ONE Administration Departure - Departure Time of Disposition: 18:25 Disposition: Home, Self-Care 01 Clinical Impression: Left sided abdominal pain Constipation Qualifiers: Constipation type: unspecified constipation type Qualified Code(s): K59.00 - Constipation, unspecified Anemia Qualifiers: Anemia type: unspecified type Qualified Code(s): D64.9 - Anemia, unspecified - Discharge Information Referrals: Siena Eubanks NP [Primary Care Provider] - Forms: ED Department Discharge Additional Instructions: The following information is given to patients seen in the emergency department who are being discharged to home. This information is to outline your options for follow-up care. We provide all patients seen in our emergency department with a follow-up referral. The need for follow-up, as well as the timing and circumstances, are variable depending upon the specifics of your emergency department visit. If you don't have a primary care physician on staff, we will provide you with a referral. We always advise you to contact your personal physician following an emergency department visit to inform them of the circumstance of the visit and for follow-up with them and/or the need for any referrals to a consulting specialist. The emergency department will also refer you to a specialist when appropriate. This referral assures that you have the opportunity for follow-up care with a specialist. All of these measure are taken in an effort to provide you with optimal care, which includes your follow-up. Under all circumstances we always encourage you to contact your private physician who remains a resource for coordinating your care. When calling for follow-up care, please make the office aware that this follow-up is from your recent emergency room visit. If for any reason you are refused follow-up, please contact the [facility] Emergency Department at and asked to speak to the emergency department charge nurse. [facility] [address] [place] [id number] [place] [address] 1. Drink one half bottle of magnesium citrate tonight. Do not have a bowel movement by tomorrow morning drink the other one half bottle. 2. Follow-up with your primary care provider as discussed. Return to the ED as needed and as discussed. 3. You can alternate ibuprofen and Tylenol as directed for pain and discomfort. - My Orders Last 24 Hours: My Active Orders 02/22/19 16:07 EKG Documentation Completion [RC] STAT - Assessment/Plan Last 24 Hours: My Active Orders 02/22/19 16:07 EKG Documentation Completion [RC] STAT
[2019-02-22 17:08] LABS: BLOOD UREA NITROGEN,BUN 9 mg/dL (7.0-18.0); CARBON DIOXIDE,CO2 25.9 mmol/L (21.0-32.0); CHLORIDE,CL 103 mmol/L (98-107); GLUCOSE RANDOM 88 mg/dL (74-106); LIPASE 130 U/L (73-393); POTASSIUM,K 3.6 mmol/L (3.5-5.1); SODIUM,NA 138 mmol/L (136-145)
[2019-02-22] MEDS ORDERED: Iopamidol 755 MG/ML 500 ML Multipack Bottle IVPUSH STA (17:35)
--- NOTE | 2019-02-22 17:49 | CR ---
INDICATION: cough TECHNIQUE: Chest 2 views. 07/05/17 FINDINGS: Cardiovascular and mediastinum: Heart size and vasculature are normal in caliber and appearance. Mediastinum is within normal limits. Lungs and pleural spaces: Lungs are clear. No sign of infiltrate or mass. No sign of pleural effusion. No pneumothorax. Bones and soft tissues: No significant findings. IMPRESSION: Unremarkable chest. Dictated by: Federico Franco MD @ 02/22/2019 17:47:43 (Electronically Signed)
--- NOTE | 2019-02-22 18:17 | CT ---
INDICATION: Left-sided abdominal pain x 10 days. TECHNIQUE: CT abdomen and pelvis acquired with IV contrast. COMPARISON: 02/03/2009 FINDINGS: Lower chest: Unremarkable. Liver: 2.7 centimeter peripherally enhancing low-attenuation lesion right lobe of the liver most likely represent hepatic an angioma. Multiple smaller low-attenuation lesions possibly representing hepatic cysts. Spleen: Unremarkable. Pancreas: Unremarkable. Gallbladder and bile ducts: Cholelithiasis. Kidneys: Unremarkable. Adrenal glands: Unremarkable. GI tract: Percutaneous laparoscopic band at the level of the pylorus. Fluid distended stomach and distal esophagus. Diffuse colonic fecal retention. Appendix is normal. Vascular structures: Unremarkable. Lymph nodes: Unremarkable. Miscellaneous: Unremarkable. No free air or significant free fluid. Pelvic Organs: Unremarkable. Bones: Unremarkable for age. IMPRESSION: Percutaneous laparoscopic band at the level of the pyloric channel. The stomach and distal esophagus are fluid distended. Diffuse colonic fecal retention. Hepatic hemangioma and multiple probable hepatic cysts. Cholelithiasis. Dictated by Federico Franco MD @ 02/22/2019 6:15:11 PM Please note that all CT scans at this facility use dose modulation, iterative reconstruction, and/or weight-based dosing when appropriate to reduce radiation dose to as low as reasonably achievable. Dictated by: Federico Franco MD @ 02/22/2019 18:15:16 (Electronically Signed)
[2019-02-22 18:50] VITALS: BP 113/76; PULSE 78
== END 2019-02-22 18:48 | disposition home or self-care (01) ==
LOC: MW.ED 15:35
DX: K59.00 Constipation, unspecified (principal); D64.9 Anemia, unspecified
CPT/HCPCS: 71046; 74177; 80053; 81003; 83690; 84703; 85025; 93005; 96361; 96374; 96375; 99284; J1885; J2405; J7040; Q9967

== ENCOUNTER 2019-05-14 07:54 | Observation (INO) | payer BC ==
--- NOTE | 2019-05-14 08:13 | EDM.PDOC ---
ED HPI GENERAL MEDICAL PROBLEM - General Chief Complaint: Upper Extremity Injury/Pain Stated Complaint: PT FELL Time Seen by Provider: 05/14/19 08:13 Source of Information: Reports: Patient History Limitations: Reports: No Limitations - History of Present Illness INITIAL COMMENTS - FREE TEXT/NARRATIVE: HISTORY AND PHYSICAL: History of present illness: Patient is a 44-year-old female presents to the ED with complaint of left arm injury. Patient states she fell on the ice landing on her left back/side about 30 minutes prior to arrival to the ED. She states the pain radiates down to her fingers. She denies head injury or LOC. She has no other complaints at this time. Review of systems: As per history of present illness and below otherwise all systems reviewed and negative. Past medical history: As per history of present illness and as reviewed below otherwise noncontributory. Surgical history: As per history of present illness and as reviewed below otherwise noncontributory. Social history: No reported history of drug or alcohol abuse. Family history: As per history of present illness and as reviewed below otherwise noncontributory. Physical exam: General: Patient sitting comfortably in no acute distress and nontoxic appearing HEENT: Atraumatic, normocephalic, pupils reactive, negative for conjunctival pallor or scleral icterus, mucous membranes moist, throat clear, neck supple, nontender, trachea midline. No meningeal signs. Lungs: Clear to auscultation, breath sounds equal bilaterally, chest nontender. Heart: S1S2, regular, negative for clicks, rubs, or overt murmur. Abdomen: Soft, nondistended, nontender. Negative for masses or hepatosplenomegaly. Negative for costovertebral tenderness. No rigidity, rebound , guarding. Pelvis: Stable nontender. Genitourinary: Deferred. Rectal: Deferred. Extremities: No obvious swelling or deformity. Skin is intact. Pain to palpation along the lateral shoulder and upper arm. CMS intact distally. negative for cords or calf pain. Neurovascular unremarkable. Neuro: Awake, alert, oriented. Cranial nerves II through XII unremarkable. Cerebellum unremarkable. Motor and sensory unremarkable throughout. Exam nonfocal. Notes: Discussed with Dr. Robertson, he will consult patient in the ED. Diagnostics: EKG, CBC, CMP, PT/INR Therapeutics: 60mg Toradol IM 2mg morphine IV 4mg Zofran IV 1L NS IV Prescriptions: Impression: Left humerus fracture Plan: Patient to same day surgery with Dr. Robertson Definitive disposition and diagnosis as appropriate pending reevaluation and review of above. left arm, wrist, shoulder Pain Score (Numeric/FACES): 10 - Related Data Allergies Allergy/AdvReac Type Severity Reaction Status Date / Time No Known Allergies Allergy Verified 05/14/19 08:13 Home Meds: Home Meds Hyoscyamine [Hyomax-SL] 1 tab PO Q4H PRN 05/14/19 [History] Metoclopramide [Reglan] 10 mg PO TID PRN 05/14/19 [History] Past Medical History - Past Health History Medical/Surgical History: Denies Medical/Surgical History HEENT History: Reports: None Cardiovascular History: Reports: None Respiratory History: Reports: None Gastrointestinal History: Reports: None Genitourinary History: Reports: None 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 Musculoskeletal History: Reports: None Neurological History: Reports: None Psychiatric History: Reports: None Endocrine/Metabolic History: Reports: None Hematologic History: Reports: None Immunologic History: Reports: None Oncologic (Cancer) History: Reports: None Dermatologic History: Reports: None - Infectious Disease History Infectious Disease History: Reports: None - Past Surgical History Head Surgeries/Procedures: Reports: None HEENT Surgical History: Reports: None Respiratory Surgical History: Reports: None GI Surgical History: Reports: Bariatric Procedure, Other (See Below) Female Surgical History: Reports: Breast Reduction, Section Musculoskeletal Surgical History: Reports: None Dermatological Surgical History: Reports: None Social & Family History - Family History Family Medical History: Noncontributory - Caffeine Use Caffeine Use: Reports: Coffee Review of Systems - Review of Systems Review Of Systems: Comprehensive ROS is negative, except as noted in HPI. ED EXAM, GENERAL - Physical Exam Exam: See Below (see dictation) Course - Vital Signs Last Recorded V/S: Last Vital Signs Temp 97.6 F 05/14/19 08:11 Pulse 82 05/14/19 11:06 Resp 16 05/14/19 11:06 BP 112/62 05/14/19 11:06 Pulse Ox 98 05/14/19 11:06 - Orders/Labs/Meds Orders: Active Orders 24 hr Category Date Time Status EKG Documentation Completion [RC] STAT Care 05/14/19 11:12 Ordered CBC WITH AUTO DIFF [HEME] Stat Lab 05/14/19 11:12 Ordered COMPREHENSIVE METABOLIC PN,CMP [CHEM] Stat Lab 05/14/19 11:12 Ordered INR,PT,PROTHROMBIN TIME [COAG] Stat Lab 05/14/19 11:12 Ordered Sodium Chloride 0.9% [Normal Saline] 1,000 ml Med 05/14/19 10:41 Ordered IV STAT Medication Orders Sodium Chloride (Normal Saline) 1,000 mls @ 999 mls/hr IV STAT ONE Stop: 05/14/19 11:41 Last Admin: 05/14/19 10:42 Dose: 999 mls/hr Meds: Medications Generic Name Dose Route Start Last Admin Trade Name Freq PRN Reason Stop Dose Admin Sodium Chloride 1,000 mls @ 999 mls/hr 05/14/19 10:41 05/14/19 10:42 Normal Saline IV 05/14/19 11:41 999 mls/hr STAT ONE Administration Discontinued Medications Generic Name Dose Route Start Last Admin Trade Name Freq PRN Reason Stop Dose Admin Ketorolac Tromethamine 60 mg 05/14/19 08:27 05/14/19 08:32 Toradol IM 05/14/19 08:28 60 mg ONETIME ONE Administration Morphine Sulfate 2 mg 05/14/19 10:31 05/14/19 10:44 Morphine IVPUSH 05/14/19 10:32 2 mg ONETIME ONE Administration Ondansetron HCl 4 mg 05/14/19 10:31 05/14/19 10:43 Zofran IVPUSH 05/14/19 10:32 4 mg ONETIME ONE Administration Departure - Departure Time of Disposition: 11:13 Disposition: Still A Patient 30 Condition: Good Clinical Impression: Left humeral fracture - Discharge Information Referrals: Siena Eubanks [employer]FFEE URN ATTENDANT [Primary Care Provider] - Forms: ED Department Discharge - My Orders Last 24 Hours: My Active Orders 05/14/19 10:41 Sodium Chloride 0.9% [Normal Saline] 1,000 ml IV STAT 05/14/19 11:12 EKG Documentation Completion [RC] STAT CBC WITH AUTO DIFF [HEME] Stat COMPREHENSIVE METABOLIC PN,CMP [CHEM] Stat INR,PT,PROTHROMBIN TIME [COAG] Stat - Assessment/Plan Last 24 Hours: My Active Orders 05/14/19 10:41 Sodium Chloride 0.9% [Normal Saline] 1,000 ml IV STAT 05/14/19 11:12 EKG Documentation Completion [RC] STAT CBC WITH AUTO DIFF [HEME] Stat COMPREHENSIVE METABOLIC PN,CMP [CHEM] Stat INR,PT,PROTHROMBIN TIME [COAG] Stat
[2019-05-14] MEDS ORDERED: Ketorolac 60 MG/2 ML SDV IM ONE (08:27)
--- NOTE | 2019-05-14 09:16 | CR ---
INDICATION: Injury. FINDINGS: Two views of the left shoulder show an oblique fracture of the left humeral neck which is mildly displaced. No other evidence of acute fracture or dislocation. No other bony or soft tissue abnormalities identified. Dictated by Duy Chavarria MD @ 05/14/2019 9:14:12 AM Dictated by: Duy Chavarria MD @ 05/14/2019 09:14:25 (Electronically Signed)
--- NOTE | 2019-05-14 09:18 | CR ---
INDICATION: Injury. FINDINGS: Two views of the left elbow show no evidence of acute fracture or dislocation. No elbow joint effusion. No other bony or soft tissue abnormalities identified. Dictated by Duy Chavarria MD @ 05/14/2019 9:17:02 AM Dictated by: Duy Chavarria MD @ 05/14/2019 09:17:41 (Electronically Signed)
[2019-05-14] MEDS ORDERED: Ondansetron 4 MG/2 ML SDV IVPUSH ONE (10:31)
[2019-05-14] MEDS ORDERED: Morphine 2 MG/ML Syringe IVPUSH ONE ×2 (10:31→11:39)
[2019-05-14] MEDS ORDERED: Sodium Chloride 0.9% 1,000 ML IV ONE (10:41)
[2019-05-14 12:00] LABS: CARBON DIOXIDE,CO2 32.2 mmol/L (21.0-32.0)
[2019-05-14 12:06] LABS: POTASSIUM,K 2.3 mmol/L (3.5-5.1)
[2019-05-14] MEDS: fentaNYL 100 MCG/2 ML SDV IVPUSH PRN ×2 (12:54→12:59)
[2019-05-14] MEDS ORDERED: Acetaminophen/HYDROcodone 325-5 MG Tab PO PRN ×2 (14:21→15:56)
[2019-05-14] MEDS ORDERED: ceFAZolin 1 GM in Premix Bag 1 BAG IV SCH (14:30)
[2019-05-14] MEDS ORDERED: Docusate Sodium 100 MG Cap PO PRN (14:37)
[2019-05-14] MEDS ORDERED: Potassium Chloride 20 MEQ Tab.ER PO ONE (15:03)
--- NOTE | 2019-05-14 15:04 | PCM.CONS ---
H&P History of Present Illness - General Date of Service: 05/14/19 Admit Problem/Dx: Admission Diagnosis/Problem Admission Diagnosis/Problem Closed fracture of proximal end of humerus Source of Information: Patient History Limitations: Reports: No Limitations - History of Present Illness Initial Comments - Free Text/Narative: This 44 year old female with pmh of gastric lap band and recent weight loss due to lap band position concerns presented today with L arm pain after she fell on the ice. She was admitted for L humeral neck fracture. During evaluation in ED potassium was noted to be 2.3. Surgery was placed on hold due to electrolyte disturbance. She reports over the last few months she has had significant weight loss secondary to lap band slippage. She has been worked up with PCP and was seen at bariatric clinic in [place]. She has lost upwards of 30 lbs since February. She reports she drinks water to protein shakes along with liquid vitamin and probiotic. She deals with constipation, which she uses a suppository every other day to help keep BMs regular. She reports she has been more tired recently , no diarrhea. No chest pain or palpitations. No other medications. In the ED hgb 11.1, hct 34.2. Potassium 2.4 and Cl 94. BUN 16, and CR 1.0. Magnesium 1.7, will add on phosphorus. Hospitalist consulted for medical management of hypokalemia left arm, wrist, shoulder Pain Score (Numeric/FACES): 6 Left Upper Arm Pain Score (Numeric/FACES): 8 Left Upper Pain Score (Numeric/FACES): 7 Left Pain Score (Numeric/FACES): 4 Left Arm Pain Score (Numeric/FACES): 4 Arm Pain Score (Numeric/FACES): 7 - Related Data Allergies/Adverse Reactions: Allergies Allergy/AdvReac Type Severity Reaction Status Date / Time No Known Allergies Allergy Verified 05/14/19 12:09 Home Medications: Home Meds Hyoscyamine [Hyomax-SL] 0.125 mg PO Q4H PRN 05/14/19 [History] Metoclopramide [Reglan] 10 mg PO TID PRN 05/14/19 [History] Past Medical History - Past Health History Medical/Surgical History: Denies Medical/Surgical History HEENT History: Reports: Other (See Below) Other HEENT History: uses reading glasses Cardiovascular History: Reports: None. Denies: CAD, High Cholesterol, Hypertension, NE Respiratory History: Reports: None Gastrointestinal History: Reports: Chronic Constipation, GERD Genitourinary History: Reports: Renal Calculus Other Genitourinary History: passed on her own [employer] History: Reports: Musculoskeletal History: Reports: None Neurological History: Reports: Other (See Below) Other Neuro History: hx of motion sickness Psychiatric History: Reports: None Endocrine/Metabolic History: Reports: None Hematologic History: Reports: None Immunologic History: Reports: None Oncologic (Cancer) History: Reports: None Dermatologic History: Reports: None - Infectious Disease History Infectious Disease History: Reports: None - Past Surgical History Head Surgeries/Procedures: Reports: None HEENT Surgical History: Reports: None Respiratory Surgical History: Reports: None GI Surgical History: Reports: Bariatric Procedure Other GI Surgeries/Procedures: was hoping to have Lap Band removed in the near future because of extreme GERD Female Surgical History: Reports: Breast Reduction, Section Musculoskeletal Surgical History: Reports: None Dermatological Surgical History: Reports: None Social & Family History - Family History Family Medical History: Noncontributory - Tobacco Use Smoking Status *Q: Never Smoker - Caffeine Use Caffeine Use: Reports: Coffee - Recreational Drug Use Recreational Drug Use: No Drug Use in Last 12 Months: No H&P Review of Systems - Review of Systems: Review Of Systems: See Below General: Reports: Malaise. Denies: Fever, Chills, Weakness HEENT: Reports: No Symptoms. Denies: Headaches, Sinus Congestion, Visual Changes Pulmonary: Reports: No Symptoms. Denies: Shortness of Breath Cardiovascular: Reports: No Symptoms. Denies: Chest Pain Gastrointestinal: Reports: Constipation. Denies: Abdominal Pain, Black Stool, Bloody Stool Genitourinary: Reports: No Symptoms. Denies: Dysuria, Frequency, Burning Skin: Reports: No Symptoms Psychiatric: Reports: No Symptoms Neurological: Reports: No Symptoms Hematologic/Lymphatic: Reports: No Symptoms Immunologic: Reports: No Symptoms Exam - Exam Exam: See Below - Vital Signs Vital Signs: Last Vital Signs Temp 98.2 F 05/14/19 12:27 Pulse 61 05/14/19 14:10 Resp 14 05/14/19 14:10 BP 100/57 L 05/14/19 14:10 Pulse Ox 100 05/14/19 14:10 Weight: 2.325 kg - Exam General: Alert, Oriented, Cooperative Neck: Supple, Trachea Midline Lungs: Clear to Auscultation, Normal Respiratory Effort Cardiovascular: Regular Rate, Regular Rhythm GI/Abdominal Exam: Normal Bowel Sounds, Soft, Non-Tender Extremities: Normal Inspection, Normal Range of Motion, Non-Tender, No Pedal Edema, Other (L arm in sling) Skin: Warm, Dry Neuro Extensive - Mental Status: Alert, Oriented x3 Psychiatric: Alert, Normal Affect, Normal Mood - Patient Data Lab Results Last 24 hrs: Laboratory Results - last 24 hr 05/14/19 05/14/19 05/14/19 Range/Units 11:31 11:31 11:31 WBC 8.53 (4.0-11.0) K/uL RBC 3.99 L (4.30-5.90) M/uL Hgb 11.1 L (12.0-16.0) g/dL Hct 34.2 L (36.0-46.0) % MCV 85.7 (80.0-98.0) fL MCH 27.8 (27.0-32.0) pg MCHC 32.5 (31.0-37.0) g/dL RDW Std Deviation 50.4 (28.0-62.0) fl RDW Coeff of Rosalind 16 H (11.0-15.0) % Plt Count 320 (150-400) K/uL MPV 9.00 (7.40-12.00) fL Neut % (Auto) 88.1 H (48.0-80.0) % Lymph % (Auto) 7.0 L (16.0-40.0) % [place] % (Auto) 4.7 (0.0-15.0) % Eos % (Auto) 0.0 (0.0-7.0) % Baso % (Auto) 0.2 (0.0-1.5) % Neut # (Auto) 7.5 H (1.4-5.7) K/uL Lymph # (Auto) 0.6 (0.6-2.4) K/uL [place] # (Auto) 0.4 (0.0-0.8) K/uL Eos # (Auto) 0.0 (0.0-0.7) K/uL Baso # (Auto) 0.0 (0.0-0.1) K/uL Nucleated RBC % 0.0 /100WBC Nucleated RBCs # 0 K/uL INR 1.04 Sodium 138 (136-145) mmol/L Potassium 2.3 L* (3.5-5.1) mmol/L Chloride 94 L (98-107) mmol/L Carbon Dioxide 32.2 H (21.0-32.0) mmol/L BUN 16 (7.0-18.0) mg/dL Creatinine 1.0 (0.6-1.0) mg/dL Est Cr Clr Drug Dosing 55.45 mL/min Estimated GFR (MDRD) 60.0 ml/min Glucose 81 (74-106) mg/dL Calcium 8.8 (8.5-10.1) mg/dL Total Bilirubin 0.6 (0.2-1.0) mg/dL AST 20 (15-37) IU/L ALT 18 (14-63) IU/L Alkaline Phosphatase 45 L (46-116) U/L Total Protein 7.8 (6.4-8.2) g/dL Albumin 3.2 L (3.4-5.0) g/dL Globulin 4.6 H (2.6-4.0) g/dL Albumin/Globulin Ratio 0.7 L (0.9-1.6) Urine HCG, Qual (NEGATIVE) 05/14/19 05/14/19 Range/Units 12:10 12:45 WBC (4.0-11.0) K/uL RBC (4.30-5.90) M/uL Hgb (12.0-16.0) g/dL Hct (36.0-46.0) % MCV (80.0-98.0) fL MCH (27.0-32.0) pg MCHC (31.0-37.0) g/dL RDW Std Deviation (28.0-62.0) fl RDW Coeff of Rosalind (11.0-15.0) % Plt Count (150-400) K/uL MPV (7.40-12.00) fL Neut % (Auto) (48.0-80.0) % Lymph % (Auto) (16.0-40.0) % [place] % (Auto) (0.0-15.0) % Eos % (Auto) (0.0-7.0) % Baso % (Auto) (0.0-1.5) % Neut # (Auto) (1.4-5.7) K/uL Lymph # (Auto) (0.6-2.4) K/uL [place] # (Auto) (0.0-0.8) K/uL Eos # (Auto) (0.0-0.7) K/uL Baso # (Auto) (0.0-0.1) K/uL Nucleated RBC % /100WBC Nucleated RBCs # K/uL INR Sodium (136-145) mmol/L Potassium 2.4 L* (3.5-5.1) mmol/L Chloride (98-107) mmol/L Carbon Dioxide (21.0-32.0) mmol/L BUN (7.0-18.0) mg/dL Creatinine (0.6-1.0) mg/dL Est Cr Clr Drug Dosing mL/min Estimated GFR (MDRD) ml/min Glucose (74-106) mg/dL Calcium (8.5-10.1) mg/dL Total Bilirubin (0.2-1.0) mg/dL AST (15-37) IU/L ALT (14-63) IU/L Alkaline Phosphatase (46-116) U/L Total Protein (6.4-8.2) g/dL Albumin (3.4-5.0) g/dL Globulin (2.6-4.0) g/dL Albumin/Globulin Ratio (0.9-1.6) Urine HCG, Qual NEGATIVE (NEGATIVE) Result Diagrams: 05/14/19 11:31 05/14/19 12:45 Consult PN Assessment/Plan Procedures: Procedures ASSAY OF LIPASE (02/22/19) ASSAY OF MAGNESIUM (07/05/17) ASSAY OF TROPONIN QUANT (07/05/17) ASSAY THYROID STIM HORMONE (07/05/17) C-REACTIVE PROTEIN (11/14/15) CHEST X-RAY 2VW FRONTAL&LATL (07/29/15) CHORIONIC GONADOTROPIN ASSAY (02/22/19) COMP SCREEN MAMMOGRAM ADD-ON (05/30/15) COMPLETE CBC W/AUTO DIFF WBC (02/22/19) COMPREHEN METABOLIC PANEL (02/22/19) CREATINE MB FRACTION (07/05/17) CT ABD & PELV W/CONTRAST (02/22/19) CT HEAD/BRAIN W/O DYE (07/05/17) CT MAXILLOFACIAL W/O DYE (08/11/18) CT NECK SPINE W/O DYE (10/15/15) CULTURE SCREEN ONLY (07/29/15) EEG AWAKE AND DROWSY (11/18/15) ELECTROCARDIOGRAM TRACING (02/22/19) EMERGENCY DEPT VISIT (02/22/19) EMERGENCY DEPT VISIT (07/05/17) EMERGENCY DEPT VISIT (03/11/17) EMERGENCY DEPT VISIT (10/15/15) EMERGENCY DEPT VISIT (07/29/15) EXTREMITY STUDY (07/05/17) HYDRATE IV INFUSION ADD-ON (02/22/19) INFLUENZA ASSAY W/OPTIC (07/29/15) MRI BRAIN STEM W/O & W/DYE (07/05/17) PROTHROMBIN TIME (07/05/17) ROUTINE VENIPUNCTURE (07/05/17) SMEAR WET [place] SALINE/INK (05/29/15) STREP A AG IA (07/29/15) THER/PROPH/DIAG INJ IV PUSH (02/22/19) THER/PROPH/DIAG INJ SC/IM (02/12/17) TISSUE EXAM BY PATHOLOGIST (06/25/15) TX/PRO/DX INJ NEW DRUG ADDON (02/22/19) URINALYSIS AUTO W/O SCOPE (02/22/19) URINALYSIS AUTO W/SCOPE (07/29/15) VITAMIN B-12 (07/05/17) X-RAY EXAM CHEST 1 VIEW (07/05/17) X-RAY EXAM CHEST 2 VIEWS (02/22/19) (1) Left humeral fracture SNOMED Code(s): 24925687 Code(s): S42.302A - UNSP FRACTURE OF SHAFT OF HUMERUS, LEFT ARM, INIT Current Visit: Yes Qualifiers: Encounter type: initial encounter Fracture type: closed (2) Hypokalemia SNOMED Code(s): 48782581 Code(s): E87.6 - HYPOKALEMIA Priority: High Current Visit: Yes (3) Hypomagnesemia SNOMED Code(s): 865518372 Code(s): E83.42 - HYPOMAGNESEMIA Priority: High Current Visit: Yes (4) Hx of laparoscopic gastric banding SNOMED Code(s): 491137701 Code(s): Z98.84 - BARIATRIC SURGERY STATUS Priority: Low Current Visit: Yes (5) Anemia SNOMED Code(s): 533179534 Code(s): D64.9 - ANEMIA, UNSPECIFIED Current Visit: No Qualifiers: Anemia type: unspecified type Qualified Code(s): D64.9 - Anemia, unspecified (6) Constipation SNOMED Code(s): 66813631 Code(s): K59.00 - CONSTIPATION, UNSPECIFIED Current Visit: No Qualifiers: Constipation type: unspecified constipation type Qualified Code(s): K59.00 - Constipation, unspecified Problem List Initiated/Reviewed/Updated: Yes My Orders Last 24 Hours: My Active Orders 05/14/19 15:03 MAGNESIUM [CHEM] Routine Potassium Chloride [Klor-Con M20] 40 meq PO ONETIME ONE Plan: This 44 year old female admitted for L humeral fracture, hospitalist service consulted for hypokalemia management. 1. L humeral fracture: Per Orthopedics 2. Hypokalemia: Replace with KCL 40 PO now, liquid due to gastric band, as well as 40 meq IV. Then start IVFs NS with 20 KCL 75 overnight and recheck in am. Monitor on Telemetry. Magnesium 1.7 replace with 2 gm IV now. Add Phosphorus on as well. VTE prophylaxis; SCDs
[2019-05-14] MEDS ORDERED: Potassium Chloride 10% 20 MEQ/15 ML Soln 30 ML UD Cup PO ONE (15:19)
[2019-05-14] MEDS ORDERED: Potassium Chloride 40 MEQ in Sodium Chloride 0.9% 480 ML IV ONE ×2 (15:19→15:30)
[2019-05-14] MEDS ORDERED: NS + KCl 20mEq/L 1,000 ML IV SCH (15:45)
[2019-05-14] MEDS ORDERED: Bisacodyl 10 MG Supp RECTAL PRN (16:25)
[2019-05-14] MEDS ORDERED: Magnesium Sulfate/Water 2 GM in Premix Bag 1 BAG IV ONE (16:25)
[2019-05-14] MEDS: HYDROmorphone 1 MG/ML Syringe IVPUSH PRN ×2 (17:50→21:20)
[2019-05-14] MEDS: Ondansetron 4 MG/2 ML SDV IVPUSH PRN (20:27)
[2019-05-14] MEDS: NS + KCl 20mEq/L 1,000 ML IV SCH (21:13)
[2019-05-14] MEDS: Pantoprazole 40 MG in Sodium Chloride 0.9% 10 ML IV SCH (23:08)
[2019-05-15] MEDS: HYDROmorphone 1 MG/ML Syringe IVPUSH PRN ×6 (01:06→21:41)
[2019-05-15] MEDS: Ondansetron 4 MG/2 ML SDV IVPUSH PRN ×4 (05:54→21:41)
[2019-05-15 06:00] LABS: BLOOD UREA NITROGEN,BUN 16 mg/dL (7.0-18.0); CARBON DIOXIDE,CO2 30.2 mmol/L (21.0-32.0); CHLORIDE,CL 103 mmol/L (98-107); GLUCOSE RANDOM 92 mg/dL (74-106); POTASSIUM,K 3.8 mmol/L (3.5-5.1); SODIUM,NA 141 mmol/L (136-145)
[2019-05-15] MEDS: NS + KCl 20mEq/L 1,000 ML IV SCH (06:55)
--- NOTE | 2019-05-15 07:47 | PCM.PN ---
- General Info Date of Service: 05/15/19 Admission Dx/Problem (Free Text): Admission Diagnosis/Problem Admission Diagnosis/Problem Closed fracture of proximal end of humerus Functional Status: Reports: Pain Controlled, Tolerating Diet, Ambulating, Urinating - Review of Systems General: Reports: No Symptoms HEENT: Reports: No Symptoms Pulmonary: Reports: No Symptoms Cardiovascular: Reports: No Symptoms Gastrointestinal: Reports: No Symptoms Genitourinary: Reports: No Symptoms Musculoskeletal: Reports: Shoulder Pain, Arm Pain, Joint Pain, Joint Swelling Skin: Reports: No Symptoms Neurological: Reports: No Symptoms Psychiatric: Reports: No Symptoms - Patient Data Vitals - Most Recent: Last Vital Signs Temp 36.4 C 05/15/19 05:00 Pulse 79 05/15/19 00:00 Resp 18 05/15/19 05:00 BP 98/63 05/15/19 05:00 Pulse Ox 95 05/15/19 05:00 Weight - Most Recent: 49.668 kg I&O - Last 24 Hours: Intake & Output 05/14/19 05/15/19 05/15/19 22:59 06:59 14:59 Intake Total 118 294 8193 Output Total 50 450 Balance 265 890 5395 Lab Results Last 24 Hours: Laboratory Results - last 24 hr 05/14/19 05/14/19 05/14/19 Range/Units 11:31 11:31 11:31 WBC 8.53 (4.0-11.0) K/uL RBC 3.99 L (4.30-5.90) M/uL Hgb 11.1 L (12.0-16.0) g/dL Hct 34.2 L (36.0-46.0) % MCV 85.7 (80.0-98.0) fL MCH 27.8 (27.0-32.0) pg MCHC 32.5 (31.0-37.0) g/dL RDW Std Deviation 50.4 (28.0-62.0) fl RDW Coeff of Rosalind 16 H (11.0-15.0) % Plt Count 320 (150-400) K/uL MPV 9.00 (7.40-12.00) fL Neut % (Auto) 88.1 H (48.0-80.0) % Lymph % (Auto) 7.0 L (16.0-40.0) % [place] % (Auto) 4.7 (0.0-15.0) % Eos % (Auto) 0.0 (0.0-7.0) % Baso % (Auto) 0.2 (0.0-1.5) % Neut # (Auto) 7.5 H (1.4-5.7) K/uL Lymph # (Auto) 0.6 (0.6-2.4) K/uL [place] # (Auto) 0.4 (0.0-0.8) K/uL Eos # (Auto) 0.0 (0.0-0.7) K/uL Baso # (Auto) 0.0 (0.0-0.1) K/uL Nucleated RBC % 0.0 /100WBC Nucleated RBCs # 0 K/uL INR 1.04 Sodium 138 (136-145) mmol/L Potassium 2.3 L* (3.5-5.1) mmol/L Chloride 94 L (98-107) mmol/L Carbon Dioxide 32.2 H (21.0-32.0) mmol/L BUN 16 (7.0-18.0) mg/dL Creatinine 1.0 (0.6-1.0) mg/dL Est Cr Clr Drug Dosing 55.45 mL/min Estimated GFR (MDRD) 60.0 ml/min Glucose 81 (74-106) mg/dL Calcium 8.8 (8.5-10.1) mg/dL Phosphorus (2.6-4.7) mg/dL Magnesium (1.8-2.4) mg/dL Total Bilirubin 0.6 (0.2-1.0) mg/dL AST 20 (15-37) IU/L ALT 18 (14-63) IU/L Alkaline Phosphatase 45 L (46-116) U/L Total Protein 7.8 (6.4-8.2) g/dL Albumin 3.2 L (3.4-5.0) g/dL Globulin 4.6 H (2.6-4.0) g/dL Albumin/Globulin Ratio 0.7 L (0.9-1.6) Vitamin B12 (193-986) pg/mL Urine HCG, Qual (NEGATIVE) 05/14/19 05/14/19 05/14/19 Range/Units 11:31 12:10 12:45 WBC (4.0-11.0) K/uL RBC (4.30-5.90) M/uL Hgb (12.0-16.0) g/dL Hct (36.0-46.0) % MCV (80.0-98.0) fL MCH (27.0-32.0) pg MCHC (31.0-37.0) g/dL RDW Std Deviation (28.0-62.0) fl RDW Coeff of Rosalind (11.0-15.0) % Plt Count (150-400) K/uL MPV (7.40-12.00) fL Neut % (Auto) (48.0-80.0) % Lymph % (Auto) (16.0-40.0) % [place] % (Auto) (0.0-15.0) % Eos % (Auto) (0.0-7.0) % Baso % (Auto) (0.0-1.5) % Neut # (Auto) (1.4-5.7) K/uL Lymph # (Auto) (0.6-2.4) K/uL [place] # (Auto) (0.0-0.8) K/uL Eos # (Auto) (0.0-0.7) K/uL Baso # (Auto) (0.0-0.1) K/uL Nucleated RBC % /100WBC Nucleated RBCs # K/uL INR Sodium (136-145) mmol/L Potassium 2.4 L* (3.5-5.1) mmol/L Chloride (98-107) mmol/L Carbon Dioxide (21.0-32.0) mmol/L BUN (7.0-18.0) mg/dL Creatinine (0.6-1.0) mg/dL Est Cr Clr Drug Dosing mL/min Estimated GFR (MDRD) ml/min Glucose (74-106) mg/dL Calcium (8.5-10.1) mg/dL Phosphorus 3.1 (2.6-4.7) mg/dL Magnesium (1.8-2.4) mg/dL Total Bilirubin (0.2-1.0) mg/dL AST (15-37) IU/L ALT (14-63) IU/L Alkaline Phosphatase (46-116) U/L Total Protein (6.4-8.2) g/dL Albumin (3.4-5.0) g/dL Globulin (2.6-4.0) g/dL Albumin/Globulin Ratio (0.9-1.6) Vitamin B12 (193-986) pg/mL Urine HCG, Qual NEGATIVE (NEGATIVE) 05/14/19 05/14/19 05/14/19 Range/Units 12:45 17:03 22:10 WBC (4.0-11.0) K/uL RBC (4.30-5.90) M/uL Hgb (12.0-16.0) g/dL Hct (36.0-46.0) % MCV (80.0-98.0) fL MCH (27.0-32.0) pg MCHC (31.0-37.0) g/dL RDW Std Deviation (28.0-62.0) fl RDW Coeff of Rosalind (11.0-15.0) % Plt Count (150-400) K/uL MPV (7.40-12.00) fL Neut % (Auto) (48.0-80.0) % Lymph % (Auto) (16.0-40.0) % [place] % (Auto) (0.0-15.0) % Eos % (Auto) (0.0-7.0) % Baso % (Auto) (0.0-1.5) % Neut # (Auto) (1.4-5.7) K/uL Lymph # (Auto) (0.6-2.4) K/uL [place] # (Auto) (0.0-0.8) K/uL Eos # (Auto) (0.0-0.7) K/uL Baso # (Auto) (0.0-0.1) K/uL Nucleated RBC % /100WBC Nucleated RBCs # K/uL INR Sodium (136-145) mmol/L Potassium 3.1 L (3.5-5.1) mmol/L Chloride (98-107) mmol/L Carbon Dioxide (21.0-32.0) mmol/L BUN (7.0-18.0) mg/dL Creatinine (0.6-1.0) mg/dL Est Cr Clr Drug Dosing mL/min Estimated GFR (MDRD) ml/min Glucose (74-106) mg/dL Calcium (8.5-10.1) mg/dL Phosphorus (2.6-4.7) mg/dL Magnesium 1.7 L (1.8-2.4) mg/dL Total Bilirubin (0.2-1.0) mg/dL AST (15-37) IU/L ALT (14-63) IU/L Alkaline Phosphatase (46-116) U/L Total Protein (6.4-8.2) g/dL Albumin (3.4-5.0) g/dL Globulin (2.6-4.0) g/dL Albumin/Globulin Ratio (0.9-1.6) Vitamin B12 2434 H (193-986) pg/mL Urine HCG, Qual (NEGATIVE) 05/15/19 Range/Units 05:30 WBC (4.0-11.0) K/uL RBC (4.30-5.90) M/uL Hgb (12.0-16.0) g/dL Hct (36.0-46.0) % MCV (80.0-98.0) fL MCH (27.0-32.0) pg MCHC (31.0-37.0) g/dL RDW Std Deviation (28.0-62.0) fl RDW Coeff of Rosalind (11.0-15.0) % Plt Count (150-400) K/uL MPV (7.40-12.00) fL Neut % (Auto) (48.0-80.0) % Lymph % (Auto) (16.0-40.0) % [place] % (Auto) (0.0-15.0) % Eos % (Auto) (0.0-7.0) % Baso % (Auto) (0.0-1.5) % Neut # (Auto) (1.4-5.7) K/uL Lymph # (Auto) (0.6-2.4) K/uL [place] # (Auto) (0.0-0.8) K/uL Eos # (Auto) (0.0-0.7) K/uL Baso # (Auto) (0.0-0.1) K/uL Nucleated RBC % /100WBC Nucleated RBCs # K/uL INR Sodium 141 (136-145) mmol/L Potassium 3.8 (3.5-5.1) mmol/L Chloride 103 (98-107) mmol/L Carbon Dioxide 30.2 (21.0-32.0) mmol/L BUN 16 (7.0-18.0) mg/dL Creatinine 0.9 (0.6-1.0) mg/dL Est Cr Clr Drug Dosing 61.89 mL/min Estimated GFR (MDRD) > 60.0 ml/min Glucose 92 (74-106) mg/dL Calcium 8.1 L (8.5-10.1) mg/dL Phosphorus 4.2 (2.6-4.7) mg/dL Magnesium 2.3 (1.8-2.4) mg/dL Total Bilirubin (0.2-1.0) mg/dL AST (15-37) IU/L ALT (14-63) IU/L Alkaline Phosphatase (46-116) U/L Total Protein (6.4-8.2) g/dL Albumin (3.4-5.0) g/dL Globulin (2.6-4.0) g/dL Albumin/Globulin Ratio (0.9-1.6) Vitamin B12 (193-986) pg/mL Urine HCG, Qual (NEGATIVE) Med Orders - Current: Current Medications Hydrocodone Bitart/Acetaminophen ([place] 325-5 Mg) 1 - 2 tab PO Q4H PRN PRN Reason: Pain Hydrocodone Bitart/Acetaminophen ([place] 325-5 Mg) 1 - 2 tab PO Q4H PRN PRN Reason: Pain Last Admin: 05/14/19 16:14 Dose: 2 tab Bisacodyl (Dulcolax) 10 mg RECTAL DAILY PRN PRN Reason: Constipation Docusate Sodium (Colace) 100 mg PO BID PRN PRN Reason: Constipation Hydromorphone HCl (Dilaudid) 1 mg IVPUSH Q1H PRN PRN Reason: Pain Last Admin: 05/15/19 05:50 Dose: 1 mg Cefazolin Sodium/Dextrose 1 gm (/ Premix) 50 mls @ 100 mls/hr IV ONCALL GENNY Potassium Chloride/Sodium Chloride (Normal Saline With 20 Meq Kcl) 1,000 mls @ 100 mls/hr IV Q10H GENNY Last Admin: 05/15/19 06:55 Dose: 100 mls/hr Pantoprazole Sodium 40 mg/ (Sodium Chloride) 10 mls @ 300 mls/hr IV DAILY [facility] Last Admin: 05/14/19 23:08 Dose: 300 mls/hr Ondansetron HCl (Zofran) 4 mg IVPUSH Q4H PRN PRN Reason: Nausea Last Admin: 05/15/19 05:54 Dose: 4 mg Discontinued Medications Fentanyl (Sublimaze) 50 mcg IVPUSH Q5M PRN PRN Reason: Pain Last Admin: 05/14/19 12:59 Dose: 50 mcg Sodium Chloride (Normal Saline) 1,000 mls @ 999 mls/hr IV STAT ONE Stop: 05/14/19 11:41 Last Admin: 05/14/19 10:42 Dose: 999 mls/hr Potassium Chloride 40 meq/ (Sodium Chloride) 500 mls @ 125 mls/hr IV ONETIME ONE Stop: 05/14/19 19:18 Potassium Chloride/Sodium Chloride (Normal Saline With 20 Meq Kcl) 1,000 mls @ 75 mls/hr IV ASDIRECTED [facility] Last Admin: 05/14/19 16:23 Dose: 75 mls/hr Potassium Chloride 40 meq/ (Sodium Chloride) 500 mls @ 125 mls/hr IV ONETIME ONE Stop: 05/14/19 19:18 Last Admin: 05/14/19 17:18 Dose: 125 mls/hr Magnesium Sulfate 2 gm/ Premix 50 mls @ 50 mls/hr IV ONETIME ONE Stop: 05/14/19 17:24 Last Admin: 05/14/19 16:56 Dose: 50 mls/hr Ketorolac Tromethamine (Toradol) 60 mg IM ONETIME ONE Stop: 05/14/19 08:28 Last Admin: 05/14/19 08:32 Dose: 60 mg Morphine Sulfate (Morphine) 2 mg IVPUSH ONETIME ONE Stop: 05/14/19 10:32 Last Admin: 05/14/19 10:44 Dose: 2 mg Morphine Sulfate (Morphine) 2 mg IVPUSH ONETIME ONE Stop: 05/14/19 11:40 Last Admin: 05/14/19 11:43 Dose: 2 mg Ondansetron HCl (Zofran) 4 mg IVPUSH ONETIME ONE Stop: 05/14/19 10:32 Last Admin: 05/14/19 10:43 Dose: 4 mg Potassium Chloride (Klor-Con M20) 40 meq PO ONETIME ONE Stop: 05/14/19 15:04 Last Admin: 05/14/19 16:10 Dose: Not Given Potassium Chloride (Potassium Chloride) 40 meq PO ONETIME ONE Stop: 05/14/19 15:20 Last Admin: 05/14/19 15:59 Dose: 40 meq - Exam General: Alert, Oriented, Cooperative, Mild Distress HEENT: Pupils Equal, Pupils Reactive Neck: Supple, Trachea Midline Lungs: Normal Respiratory Effort GI/Abdominal Exam: No Distention Extremities: Joint Swelling, Arm Pain, Limited Range of Motion Peripheral Pulses: 2+: Radial (L) Skin: Warm, Dry, Intact Neurological: No New Focal Deficit Psy/Mental Status: Alert, Normal Affect, Normal Mood - Problem List & Annotations (1) Hypokalemia SNOMED Code(s): 30288094 Code(s): E87.6 - HYPOKALEMIA Status: Acute Priority: High Current Visit : Yes (2) Left humeral fracture SNOMED Code(s): 36846898 Code(s): S42.302A - UNSP FRACTURE OF SHAFT OF HUMERUS, LEFT ARM, INIT Status: Acute Current Visit: Yes Qualifiers: Encounter type: initial encounter Humerus Location: surgical neck Fracture type: closed Fracture morphology: 3-part Qualified Code(s): S42.232A - 3-part fracture of surgical neck of left humerus, initial encounter for closed fracture - Problem List Review Problem List Initiated/Reviewed/Updated: Yes - My Orders Last 24 Hours: My Active Orders 05/14/19 14:21 Acetaminophen/HYDROcodone [[place] 325-5 MG] 1 - 2 tab PO Q4H PRN Code Status [Resuscitation Status] Routine 05/14/19 14:22 Antiembolic Devices [RC] PER UNIT ROUTINE Antiembolic Hose [OM.PC] Routine Obtain Home Medication List [OM.PC] Routine Sequential Compression Device [OM.PC] Routine 05/14/19 14:23 HYDROmorphone [Dilaudid] 1 mg IVPUSH Q1H PRN 05/14/19 14:24 Consult to Physician [CONS] Routine 05/14/19 14:25 Notify Provider Consults [RC] ASDIRECTED 05/14/19 14:30 ceFAZolin [Ancef] 1 gm Premix Bag 1 bag IV ONCALL 05/14/19 14:37 Docusate Sodium [Colace] 100 mg PO BID PRN 05/14/19 15:53 Admission Status [Patient Status] [ADT] Routine 05/14/19 15:56 Acetaminophen/HYDROcodone [[place] 325-5 MG] 1 - 2 tab PO Q4H PRN - Plan Plan:: 1) continue to check potassium today for normalization 2) pain control 3) npo at midnight 4) to surgery tuesday for orif left proximal humerus
[2019-05-15] MEDS: Pantoprazole 40 MG in Sodium Chloride 0.9% 10 ML IV SCH (08:00)
[2019-05-15] MEDS ORDERED: Hyoscyamine 0.125 MG Tab.SL SL PRN (08:00)
[2019-05-15] MEDS ORDERED: NS + KCl 20mEq/L 1,000 ML IV SCH (09:15)
--- NOTE | 2019-05-15 09:18 | PCM.CONSN ---
- General Info Date of Service: 05/15/19 Admission Dx/Problem (Free Text): Admission Diagnosis/Problem Admission Diagnosis/Problem Closed fracture of proximal end of humerus Subjective Update: Feeling good this morning, having continue vomiting, which is at baseline since lap band issue started. No chest pain or SOB. Functional Status: Reports: Pain Controlled, Ambulating. Denies: Tolerating Diet (drinking protein shakes.) - Review of Systems Pulmonary: Reports: No Symptoms. Denies: Shortness of Breath Cardiovascular: Reports: No Symptoms. Denies: Chest Pain Gastrointestinal: Reports: No Symptoms. Denies: Abdominal Pain, Nausea, Vomiting Genitourinary: Reports: No Symptoms. Denies: Dysuria, Frequency Musculoskeletal: Reports: No Symptoms Skin: Reports: No Symptoms Neurological: Reports: No Symptoms Psychiatric: Reports: No Symptoms - Patient Data Vitals - Most Recent: Last Vital Signs Temp 97.7 F 05/15/19 08:07 Pulse 75 05/15/19 08:07 Resp 16 05/15/19 08:07 BP 107/54 L 05/15/19 08:07 Pulse Ox 95 05/15/19 08:07 Weight - Most Recent: 49.668 kg I&O - Last 24 Hours: Intake & Output 05/14/19 05/15/19 05/15/19 22:59 06:59 14:59 Intake Total 589 164 3037 Output Total 50 450 Balance 583 018 7552 Lab Results Last 24 Hours: Laboratory Results - last 24 hr 05/14/19 05/14/19 05/14/19 Range/Units 11:31 11:31 11:31 WBC 8.53 (4.0-11.0) K/uL RBC 3.99 L (4.30-5.90) M/uL Hgb 11.1 L (12.0-16.0) g/dL Hct 34.2 L (36.0-46.0) % MCV 85.7 (80.0-98.0) fL MCH 27.8 (27.0-32.0) pg MCHC 32.5 (31.0-37.0) g/dL RDW Std Deviation 50.4 (28.0-62.0) fl RDW Coeff of Rosalind 16 H (11.0-15.0) % Plt Count 320 (150-400) K/uL MPV 9.00 (7.40-12.00) fL Neut % (Auto) 88.1 H (48.0-80.0) % Lymph % (Auto) 7.0 L (16.0-40.0) % Sumner % (Auto) 4.7 (0.0-15.0) % Eos % (Auto) 0.0 (0.0-7.0) % Baso % (Auto) 0.2 (0.0-1.5) % Neut # (Auto) 7.5 H (1.4-5.7) K/uL Lymph # (Auto) 0.6 (0.6-2.4) K/uL Sumner # (Auto) 0.4 (0.0-0.8) K/uL Eos # (Auto) 0.0 (0.0-0.7) K/uL Baso # (Auto) 0.0 (0.0-0.1) K/uL Nucleated RBC % 0.0 /100WBC Nucleated RBCs # 0 K/uL INR 1.04 Sodium 138 (136-145) mmol/L Potassium 2.3 L* (3.5-5.1) mmol/L Chloride 94 L (98-107) mmol/L Carbon Dioxide 32.2 H (21.0-32.0) mmol/L BUN 16 (7.0-18.0) mg/dL Creatinine 1.0 (0.6-1.0) mg/dL Est Cr Clr Drug Dosing 55.45 mL/min Estimated GFR (MDRD) 60.0 ml/min Glucose 81 (74-106) mg/dL Calcium 8.8 (8.5-10.1) mg/dL Phosphorus (2.6-4.7) mg/dL Magnesium (1.8-2.4) mg/dL Total Bilirubin 0.6 (0.2-1.0) mg/dL AST 20 (15-37) IU/L ALT 18 (14-63) IU/L Alkaline Phosphatase 45 L (46-116) U/L Total Protein 7.8 (6.4-8.2) g/dL Albumin 3.2 L (3.4-5.0) g/dL Globulin 4.6 H (2.6-4.0) g/dL Albumin/Globulin Ratio 0.7 L (0.9-1.6) Vitamin B12 (193-986) pg/mL Urine HCG, Qual (NEGATIVE) 05/14/19 05/14/19 05/14/19 Range/Units 11:31 12:10 12:45 WBC (4.0-11.0) K/uL RBC (4.30-5.90) M/uL Hgb (12.0-16.0) g/dL Hct (36.0-46.0) % MCV (80.0-98.0) fL MCH (27.0-32.0) pg MCHC (31.0-37.0) g/dL RDW Std Deviation (28.0-62.0) fl RDW Coeff of Rosalind (11.0-15.0) % Plt Count (150-400) K/uL MPV (7.40-12.00) fL Neut % (Auto) (48.0-80.0) % Lymph % (Auto) (16.0-40.0) % Sumner % (Auto) (0.0-15.0) % Eos % (Auto) (0.0-7.0) % Baso % (Auto) (0.0-1.5) % Neut # (Auto) (1.4-5.7) K/uL Lymph # (Auto) (0.6-2.4) K/uL Sumner # (Auto) (0.0-0.8) K/uL Eos # (Auto) (0.0-0.7) K/uL Baso # (Auto) (0.0-0.1) K/uL Nucleated RBC % /100WBC Nucleated RBCs # K/uL INR Sodium (136-145) mmol/L Potassium 2.4 L* (3.5-5.1) mmol/L Chloride (98-107) mmol/L Carbon Dioxide (21.0-32.0) mmol/L BUN (7.0-18.0) mg/dL Creatinine (0.6-1.0) mg/dL Est Cr Clr Drug Dosing mL/min Estimated GFR (MDRD) ml/min Glucose (74-106) mg/dL Calcium (8.5-10.1) mg/dL Phosphorus 3.1 (2.6-4.7) mg/dL Magnesium (1.8-2.4) mg/dL Total Bilirubin (0.2-1.0) mg/dL AST (15-37) IU/L ALT (14-63) IU/L Alkaline Phosphatase (46-116) U/L Total Protein (6.4-8.2) g/dL Albumin (3.4-5.0) g/dL Globulin (2.6-4.0) g/dL Albumin/Globulin Ratio (0.9-1.6) Vitamin B12 (193-986) pg/mL Urine HCG, Qual NEGATIVE (NEGATIVE) 05/14/19 05/14/19 05/14/19 Range/Units 12:45 17:03 22:10 WBC (4.0-11.0) K/uL RBC (4.30-5.90) M/uL Hgb (12.0-16.0) g/dL Hct (36.0-46.0) % MCV (80.0-98.0) fL MCH (27.0-32.0) pg MCHC (31.0-37.0) g/dL RDW Std Deviation (28.0-62.0) fl RDW Coeff of Rosalind (11.0-15.0) % Plt Count (150-400) K/uL MPV (7.40-12.00) fL Neut % (Auto) (48.0-80.0) % Lymph % (Auto) (16.0-40.0) % Sumner % (Auto) (0.0-15.0) % Eos % (Auto) (0.0-7.0) % Baso % (Auto) (0.0-1.5) % Neut # (Auto) (1.4-5.7) K/uL Lymph # (Auto) (0.6-2.4) K/uL Sumner # (Auto) (0.0-0.8) K/uL Eos # (Auto) (0.0-0.7) K/uL Baso # (Auto) (0.0-0.1) K/uL Nucleated RBC % /100WBC Nucleated RBCs # K/uL INR Sodium (136-145) mmol/L Potassium 3.1 L (3.5-5.1) mmol/L Chloride (98-107) mmol/L Carbon Dioxide (21.0-32.0) mmol/L BUN (7.0-18.0) mg/dL Creatinine (0.6-1.0) mg/dL Est Cr Clr Drug Dosing mL/min Estimated GFR (MDRD) ml/min Glucose (74-106) mg/dL Calcium (8.5-10.1) mg/dL Phosphorus (2.6-4.7) mg/dL Magnesium 1.7 L (1.8-2.4) mg/dL Total Bilirubin (0.2-1.0) mg/dL AST (15-37) IU/L ALT (14-63) IU/L Alkaline Phosphatase (46-116) U/L Total Protein (6.4-8.2) g/dL Albumin (3.4-5.0) g/dL Globulin (2.6-4.0) g/dL Albumin/Globulin Ratio (0.9-1.6) Vitamin B12 2434 H (193-986) pg/mL Urine HCG, Qual (NEGATIVE) 05/15/19 Range/Units 05:30 WBC (4.0-11.0) K/uL RBC (4.30-5.90) M/uL Hgb (12.0-16.0) g/dL Hct (36.0-46.0) % MCV (80.0-98.0) fL MCH (27.0-32.0) pg MCHC (31.0-37.0) g/dL RDW Std Deviation (28.0-62.0) fl RDW Coeff of Rosalind (11.0-15.0) % Plt Count (150-400) K/uL MPV (7.40-12.00) fL Neut % (Auto) (48.0-80.0) % Lymph % (Auto) (16.0-40.0) % Sumner % (Auto) (0.0-15.0) % Eos % (Auto) (0.0-7.0) % Baso % (Auto) (0.0-1.5) % Neut # (Auto) (1.4-5.7) K/uL Lymph # (Auto) (0.6-2.4) K/uL Sumner # (Auto) (0.0-0.8) K/uL Eos # (Auto) (0.0-0.7) K/uL Baso # (Auto) (0.0-0.1) K/uL Nucleated RBC % /100WBC Nucleated RBCs # K/uL INR Sodium 141 (136-145) mmol/L Potassium 3.8 (3.5-5.1) mmol/L Chloride 103 (98-107) mmol/L Carbon Dioxide 30.2 (21.0-32.0) mmol/L BUN 16 (7.0-18.0) mg/dL Creatinine 0.9 (0.6-1.0) mg/dL Est Cr Clr Drug Dosing 61.89 mL/min Estimated GFR (MDRD) > 60.0 ml/min Glucose 92 (74-106) mg/dL Calcium 8.1 L (8.5-10.1) mg/dL Phosphorus 4.2 (2.6-4.7) mg/dL Magnesium 2.3 (1.8-2.4) mg/dL Total Bilirubin (0.2-1.0) mg/dL AST (15-37) IU/L ALT (14-63) IU/L Alkaline Phosphatase (46-116) U/L Total Protein (6.4-8.2) g/dL Albumin (3.4-5.0) g/dL Globulin (2.6-4.0) g/dL Albumin/Globulin Ratio (0.9-1.6) Vitamin B12 (193-986) pg/mL Urine HCG, Qual (NEGATIVE) Med Orders - Current: Current Medications Hydrocodone Bitart/Acetaminophen ([place] 325-5 Mg) 1 - 2 tab PO Q4H PRN PRN Reason: Pain Hydrocodone Bitart/Acetaminophen ([place] 325-5 Mg) 1 - 2 tab PO Q4H PRN PRN Reason: Pain Last Admin: 05/14/19 16:14 Dose: 2 tab Bisacodyl (Dulcolax) 10 mg RECTAL DAILY PRN PRN Reason: Constipation Docusate Sodium (Colace) 100 mg PO BID PRN PRN Reason: Constipation Hydromorphone HCl (Dilaudid) 1 mg IVPUSH Q1H PRN PRN Reason: Pain Last Admin: 05/15/19 05:50 Dose: 1 mg Hyoscyamine (Hyomax-Sl) 0.125 mg SL Q4H PRN PRN Reason: Pain Cefazolin Sodium/Dextrose 1 gm (/ Premix) 50 mls @ 100 mls/hr IV ONCALL [facility] Pantoprazole Sodium 40 mg/ (Sodium Chloride) 10 mls @ 300 mls/hr IV DAILY [facility] Last Admin: 05/15/19 08:00 Dose: 300 mls/hr Potassium Chloride/Sodium Chloride (Normal Saline With 20 Meq Kcl) 1,000 mls @ 125 mls/hr IV Q8H [facility] Stop: 05/15/19 17:14 Ondansetron HCl (Zofran) 4 mg IVPUSH Q4H PRN PRN Reason: Nausea Last Admin: 05/15/19 05:54 Dose: 4 mg Discontinued Medications Fentanyl (Sublimaze) 50 mcg IVPUSH Q5M PRN PRN Reason: Pain Last Admin: 05/14/19 12:59 Dose: 50 mcg Sodium Chloride (Normal Saline) 1,000 mls @ 999 mls/hr IV STAT ONE Stop: 05/14/19 11:41 Last Admin: 05/14/19 10:42 Dose: 999 mls/hr Potassium Chloride 40 meq/ (Sodium Chloride) 500 mls @ 125 mls/hr IV ONETIME ONE Stop: 05/14/19 19:18 Potassium Chloride/Sodium Chloride (Normal Saline With 20 Meq Kcl) 1,000 mls @ 75 mls/hr IV ASDIRECTED [facility] Last Admin: 05/14/19 16:23 Dose: 75 mls/hr Potassium Chloride 40 meq/ (Sodium Chloride) 500 mls @ 125 mls/hr IV ONETIME ONE Stop: 05/14/19 19:18 Last Admin: 05/14/19 17:18 Dose: 125 mls/hr Magnesium Sulfate 2 gm/ Premix 50 mls @ 50 mls/hr IV ONETIME ONE Stop: 05/14/19 17:24 Last Admin: 05/14/19 16:56 Dose: 50 mls/hr Potassium Chloride/Sodium Chloride (Normal Saline With 20 Meq Kcl) 1,000 mls @ 100 mls/hr IV Q10H [facility] Last Admin: 05/15/19 06:55 Dose: 100 mls/hr Ketorolac Tromethamine (Toradol) 60 mg IM ONETIME ONE Stop: 05/14/19 08:28 Last Admin: 05/14/19 08:32 Dose: 60 mg Morphine Sulfate (Morphine) 2 mg IVPUSH ONETIME ONE Stop: 05/14/19 10:32 Last Admin: 05/14/19 10:44 Dose: 2 mg Morphine Sulfate (Morphine) 2 mg IVPUSH ONETIME ONE Stop: 05/14/19 11:40 Last Admin: 05/14/19 11:43 Dose: 2 mg Ondansetron HCl (Zofran) 4 mg IVPUSH ONETIME ONE Stop: 05/14/19 10:32 Last Admin: 05/14/19 10:43 Dose: 4 mg Potassium Chloride (Klor-Con M20) 40 meq PO ONETIME ONE Stop: 05/14/19 15:04 Last Admin: 05/14/19 16:10 Dose: Not Given Potassium Chloride (Potassium Chloride) 40 meq PO ONETIME ONE Stop: 05/14/19 15:20 Last Admin: 05/14/19 15:59 Dose: 40 meq - Exam General: Alert, Oriented, Cooperative Lungs: Clear to Auscultation, Normal Respiratory Effort Cardiovascular: Regular Rate, Regular Rhythm GI/Abdominal Exam: Normal Bowel Sounds, Soft, Non-Tender Extremities: Normal Inspection, Non-Tender, No Pedal Edema. No: Normal Range of Motion (L upper ext in sling) Neurological: No New Focal Deficit Psy/Mental Status: Alert, Normal Affect, Normal Mood Consult PN Assessment/Plan Procedures: Procedures ASSAY OF LIPASE (02/22/19) ASSAY OF MAGNESIUM (07/05/17) ASSAY OF TROPONIN QUANT (07/05/17) ASSAY THYROID STIM HORMONE (07/05/17) C-REACTIVE PROTEIN (11/14/15) CHEST X-RAY 2VW FRONTAL&LATL (07/29/15) CHORIONIC GONADOTROPIN ASSAY (02/22/19) COMP SCREEN MAMMOGRAM ADD-ON (05/30/15) COMPLETE CBC W/AUTO DIFF WBC (02/22/19) COMPREHEN METABOLIC PANEL (02/22/19) CREATINE MB FRACTION (07/05/17) CT ABD & PELV W/CONTRAST (02/22/19) CT HEAD/BRAIN W/O DYE (07/05/17) CT MAXILLOFACIAL W/O DYE (08/11/18) CT NECK SPINE W/O DYE (10/15/15) CULTURE SCREEN ONLY (07/29/15) EEG AWAKE AND DROWSY (11/18/15) ELECTROCARDIOGRAM TRACING (02/22/19) EMERGENCY DEPT VISIT (02/22/19) EMERGENCY DEPT VISIT (07/05/17) EMERGENCY DEPT VISIT (03/11/17) EMERGENCY DEPT VISIT (10/15/15) EMERGENCY DEPT VISIT (07/29/15) EXTREMITY STUDY (07/05/17) HYDRATE IV INFUSION ADD-ON (02/22/19) INFLUENZA ASSAY W/OPTIC (07/29/15) MRI BRAIN STEM W/O & W/DYE (07/05/17) PROTHROMBIN TIME (07/05/17) ROUTINE VENIPUNCTURE (07/05/17) SMEAR WET [place] SALINE/INK (05/29/15) STREP A AG IA (07/29/15) THER/PROPH/DIAG INJ IV PUSH (02/22/19) THER/PROPH/DIAG INJ SC/IM (02/12/17) TISSUE EXAM BY PATHOLOGIST (06/25/15) TX/PRO/DX INJ NEW DRUG ADDON (02/22/19) URINALYSIS AUTO W/O SCOPE (02/22/19) URINALYSIS AUTO W/SCOPE (07/29/15) VITAMIN B-12 (07/05/17) X-RAY EXAM CHEST 1 VIEW (07/05/17) X-RAY EXAM CHEST 2 VIEWS (02/22/19) (1) Left humeral fracture SNOMED Code(s): 20208570 Code(s): S42.302A - UNSP FRACTURE OF SHAFT OF HUMERUS, LEFT ARM, INIT Current Visit: Yes Qualifiers: Encounter type: initial encounter Humerus Location: surgical neck Fracture type: closed Fracture morphology: 3-part Qualified Code(s): S42.232A - 3-part fracture of surgical neck of left humerus, initial encounter for closed fracture (2) Hypokalemia SNOMED Code(s): 52142055 Code(s): E87.6 - HYPOKALEMIA Priority: High Current Visit: Yes (3) Hypomagnesemia SNOMED Code(s): 103319509 Code(s): E83.42 - HYPOMAGNESEMIA Priority: High Current Visit: Yes (4) Hx of laparoscopic gastric banding SNOMED Code(s): 898355829 Code(s): Z98.84 - BARIATRIC SURGERY STATUS Priority: Low Current Visit: Yes (5) Anemia SNOMED Code(s): 422554887 Code(s): D64.9 - ANEMIA, UNSPECIFIED Current Visit: No Qualifiers: Anemia type: unspecified type Qualified Code(s): D64.9 - Anemia, unspecified (6) Constipation SNOMED Code(s): 01776856 Code(s): K59.00 - CONSTIPATION, UNSPECIFIED Current Visit: No Qualifiers: Constipation type: unspecified constipation type Qualified Code(s): K59.00 - Constipation, unspecified Problem List Initiated/Reviewed/Updated: Yes My Orders Last 24 Hours: My Active Orders 05/14/19 15:15 Telemetry Monitoring [Cardiac Monitoring] [RC] Q8H 05/14/19 16:25 Bisacodyl [Dulcolax] 10 mg RECTAL DAILY PRN 05/14/19 16:47 Ondansetron [Zofran] 4 mg IVPUSH Q4H PRN 05/14/19 16:50 Communication Order [RC] PRN 05/14/19 17:03 VITAMIN B12 [CHEM] Routine VITAMIN D,25-HYDROXY [CHEM] Routine 05/14/19 Lunch Regular Diet [DIET] 05/15/19 09:09 Special Needs Nanny Discontinue [Cardiac Monitoring Discontinue] [RC] Click to Edit 05/15/19 09:15 NS + KCl 20mEq/L [Normal Saline with 20 mEq KCl] 1,000 ml IV Q8H Plan: This 44 year old female admitted for L humeral fracture, hospitalist service consulted for hypokalemia management. 1. L humeral fracture: Per Orthopedics 2. Hypokalemia: Normal this morning, finish current IVF bag hanging. Recheck K tonight to insure stability and in am prior to surgery. DC Telemetry. VTE prophylaxis; SCDs
[2019-05-16] MEDS: HYDROmorphone 1 MG/ML Syringe IVPUSH PRN ×3 (01:04→22:44)
[2019-05-16 06:54] LABS: BLOOD UREA NITROGEN,BUN 15 mg/dL (7.0-18.0); CARBON DIOXIDE,CO2 25.4 mmol/L (21.0-32.0); CHLORIDE,CL 108 mmol/L (98-107); GLUCOSE RANDOM 66 mg/dL (74-106); POTASSIUM,K 3.5 mmol/L (3.5-5.1); SODIUM,NA 145 mmol/L (136-145)
[2019-05-16] MEDS ORDERED: Glycopyrrolate 0.2 MG/ML SDV ONE (07:26)
[2019-05-16] MEDS ORDERED: Ondansetron 4 MG/2 ML SDV ONE (07:26)
[2019-05-16] MEDS ORDERED: Lidocaine 2% 5 ML SDV ONE (07:26)
[2019-05-16] MEDS ORDERED: Neostigmine Methylsulfate 1 MG/ML 5 ML Syringe ONE (07:26)
[2019-05-16] MEDS ORDERED: Midazolam 1 MG/ML 2 ML SDV ONE ×2 (07:27→09:48)
[2019-05-16] MEDS ORDERED: fentaNYL 250 MCG/5 ML SDV ONE (07:27)
[2019-05-16] MEDS ORDERED: Propofol 200 MG/20 ML SDV ONE (07:27)
[2019-05-16] MEDS ORDERED: Magnesium Sulfate 2 GM, Potassium Chloride 40 MEQ in Sodium Chloride 0.9% 500 ML IV ONE (07:59)
[2019-05-16] MEDS: Pantoprazole 40 MG in Sodium Chloride 0.9% 10 ML IV SCH (08:00)
[2019-05-16] MEDS: Lactated Ringers 1,000 ML IV SCH (09:12)
[2019-05-16] MEDS ORDERED: Sugammadex Sodium 200 MG/2 ML VIAL ONE (09:54)
[2019-05-16] MEDS ORDERED: Ropivacaine 0.5% 5 MG/ML 30 ML SDV ONE (09:54)
[2019-05-16] MEDS ORDERED: Dexamethasone 4 MG/ML 5 ML MDV ONE (09:56)
--- NOTE | 2019-05-16 10:35 | PCM.PREANE ---
Preanesthetic Assessment - Anesthesia/Transfusion/Family Hx Anesthesia History: Prior Anesthesia Reaction Type of Anesthesia Reaction: Excessive Nausea/Vomiting Family History of Anesthesia Reaction: No Transfusion History: No Prior Transfusion(s) - Review of Systems General: No Symptoms Pulmonary: No Symptoms Cardiovascular: No Symptoms Gastrointestinal: Other (chronic gerd) Neurological: No Symptoms Other: Reports: None - Physical Assessment NPO Status Date: 05/14/19 Weight: 49.442 kg ASA Class: 3 Mental Status: Alert & Oriented x3 Airway Class: Mallampati = 2 Dentition: Reports: Normal Dentition ROM/Head Extension: Full Lungs: Clear to Auscultation, Normal Respiratory Effort Cardiovascular: Regular Rate, Regular Rhythm - Allergies Allergies/Adverse Reactions: Allergies Allergy/AdvReac Type Severity Reaction Status Date / Time No Known Allergies Allergy Verified 05/16/19 08:08 - Blood Blood Available: No - Anesthesia Plan Pre-Op Medication Ordered: None - Acknowledgements Anesthesia Type Planned: General Anesthesia Pt an Appropriate Candidate for the Planned Anesthesia: Yes Alternatives and Risks of Anesthesia Discussed w Pt/Guardian: Yes Pt/Guardian Understands and Agrees with Anesthesia Plan: Yes Additional Comments: PMH: s/p lap band surg with resultant severe gerd sx and chronic electrolyte abnormalities, K increased from 2.3 to 5.5 with supplimentation over the last 48 hr. still hypomg, and hypo ca, PLAN: get with ISB- risks and goals discussed PreAnesthesia Questionnaire - Past Health History Medical/Surgical History: Denies Medical/Surgical History HEENT History: Reports: Other (See Below) Other HEENT History: uses reading glasses Cardiovascular History: Reports: None Respiratory History: Reports: None Gastrointestinal History: Reports: Chronic Constipation, GERD Genitourinary History: Reports: Renal Calculus Other Genitourinary History: passed on her own [employer] History: Reports: Musculoskeletal History: Reports: None Neurological History: Reports: Other (See Below) Other Neuro History: hx of motion sickness Psychiatric History: Reports: None Endocrine/Metabolic History: Reports: None Hematologic History: Reports: None Immunologic History: Reports: None Oncologic (Cancer) History: Reports: None Dermatologic History: Reports: None - Infectious Disease History Infectious Disease History: Reports: None - Past Surgical History Head Surgeries/Procedures: Reports: None HEENT Surgical History: Reports: None Respiratory Surgical History: Reports: None GI Surgical History: Reports: Bariatric Procedure Other GI Surgeries/Procedures: was hoping to have Lap Band removed in the near future because of extreme GERD Female Surgical History: Reports: Breast Reduction, Section Musculoskeletal Surgical History: Reports: None Dermatological Surgical History: Reports: None - SUBSTANCE USE Smoking Status *Q: Never Smoker Recreational Drug Use History: No - HOME MEDS Home Medications: Home Meds Hyoscyamine [Hyomax-SL] 0.125 mg PO Q4H PRN 05/14/19 [History] Metoclopramide [Reglan] 10 mg PO TID PRN 05/14/19 [History] - CURRENT (IN HOUSE) MEDS Current Meds: Current Medications Cefazolin Sodium/Dextrose 1 gm (/ Premix) 50 mls @ 100 mls/hr IV ONCALL GENNY
[2019-05-16] MEDS ORDERED: Rocuronium 100 MG/10 ML Syringe ONE (10:58)
[2019-05-16] MEDS ORDERED: Phenylephrine 1% 10 MG/ML SDV ONE (12:32)
--- NOTE | 2019-05-16 13:07 | PCM.PRNOTE ---
- Free Text/Narrative Note: Anes Note Left interscalene block for post op pain management as reuqested by surgeon. I performed a left interscalene block in the recovery room under sterile technique. Chloraprep scrube to left neck area. Using ultrasound guidance, the L ISB nerve bundle was identified. A stimuplex 2 X 4 in needle was cautious advanced towards this bundle. An excellent forarm twich was noted at 1 mA, and was still present at 0.6 mA on the first pass. There was no pain or parasthesia during needle placement or during injection of local anesthetic. a total of 30 cc 0.5% ropivicaine with 4 mg decadron was injected in slow incremental doses. Several minutes after injection, the patient reported complete analgesia of the left arm. Procedure tolerated well. Time with patient 1100 to 1115. Moses Doherty CRNA
--- NOTE | 2019-05-16 15:04 | PCM.POSTAN ---
POST ANESTHESIA ASSESSMENT - MENTAL STATUS Mental Status: Alert - VITAL SIGNS Vital Signs: Last Vital Signs Temp 36.8 C 05/16/19 14:11 Pulse 85 05/16/19 14:57 Resp 17 05/16/19 14:57 BP 98/56 L 05/16/19 14:57 Pulse Ox 93 L 05/16/19 14:57 - RESPIRATORY Respiratory Status: Respiratory Rate WNL - CARDIOVASCULAR CV Status: Pulse Rate WNL - GASTROINTESTINAL GI Status: No Symptoms - POST OP HYDRATION Hydration Status: Adequate & Stable
--- NOTE | 2019-05-16 15:28 | OR ---
SURGEON: Efraín Robertson DATE OF PROCEDURE: 05/16/2019 PREOPERATIVE DIAGNOSIS: Left 2-part proximal humerus fracture, closed. POSTOPERATIVE DIAGNOSIS: Left 2-part proximal humerus fracture, closed. PROCEDURE: Open reduction and internal fixation of left proximal humerus fracture. PRIMARY SURGEON: Efraín Robertson D.O. PATIENT RELATIONS COORDINATOR: INDRA Dye. Nurse practitioner, INDRA Dye, played an essential role in assisting in this case, helping to position the patient, retract structures as needed, as well as suturing and cutting sutures as indicated. Her presence improved patient's safety and decreased operative time. ANESTHESIA: General tracheal intubation. FLUID: Lactated Ringer's solution. ESTIMATED BLOOD LOSS: 50 mL. COMPLICATIONS: None. SPECIMEN: None. DISCHARGE DISPOSITION: Stable to PACU. INSTRUMENTATION: Stephanie locking proximal humerus plate, 5-hole. HISTORY AND INDICATION FOR THE PROCEDURE: The patient was seen in the ER by myself and then admitted under my service. Preoperative imaging confirmed the above-mentioned diagnosis. She was kept in the hospital for two days for hyperkalemia so we could normalize her potassium. Risks and goals of procedure were explained to the patient. Informed consent was obtained. DETAILS OF PROCEDURE: The patient was seen preoperatively by myself and anesthesia staff in the preoperative holding area where operative site was marked. She was brought to the operative suite by the anesthesia staff where a block was administered. General endotracheal intubation was administered. She was placed into a beach chair position. All extremities found to be well padded. The left upper extremity was then prepped and draped in a sterile manner. Time-out was called identifying the correct patient, correct procedure, and the correct site, and that antibiotics have been given within appropriate period of time. An incision of the acromion was marked. The raphe between the anterior and medial deltoid was felt. This was marked down approximately 10 cm. I marked from 5 to 7 cm to avoid the axillary nerve. I then made my skin incision. The bleeding was controlled with Bovie electrocautery. Gelpi and Weitlaner were used for retraction. I then split the raphe proximally at the acromion approximately about 4 cm and then carried this down to the capsule. I palpated underneath the deltoid to feel the axillary nerve. I then avoided this area and then split distally to the axillary nerve. I did not visualize the axillary nerve during the procedure. I then cleared the bone using a Cervantes. I was able to see my fracture fragments and reduced the fracture. I then placed my 5-hole plate. I then pinned it preliminarily in place proximally. I then placed distal cortical nonlocking and locking screws. I then removed my K-wires, then adjusted my reduction a little bit more and then placed four locking screws proximally. After this had been accomplished, I then took final films with sterilely draped fluoroscopy unit. We then copiously irrigated with Betadine infused irrigation. We then closed the deltoid deeply and avoided going deep to the area of the axillary nerve with 0 Stratafix. I then closed subcutaneously with 0 Stratafix, then followed by nylon interrupted sutures for the skin, followed by Betadine-soaked Adaptic sponges and Medipore tape. The patient was allowed to awaken from general endotracheal intubation and taken to PACU in stable condition. [id number] / MODL /[id number]
--- NOTE | 2019-05-16 15:35 | PCM.CONSN ---
- General Info Date of Service: 05/16/19 Admission Dx/Problem (Free Text): Admission Diagnosis/Problem Admission Diagnosis/Problem Closed fracture of proximal end of humerus Subjective Update: Doing well post-operatively. No nausea currently. Pain control Functional Status: Reports: Pain Controlled - Review of Systems General: Reports: No Symptoms. Denies: Weakness, Fatigue Pulmonary: Reports: No Symptoms. Denies: Shortness of Breath Cardiovascular: Reports: No Symptoms. Denies: Chest Pain Gastrointestinal: Reports: No Symptoms. Denies: Abdominal Pain Genitourinary: Reports: No Symptoms. Denies: Dysuria Musculoskeletal: Reports: Joint Swelling Skin: Reports: No Symptoms Neurological: Reports: No Symptoms Psychiatric: Reports: No Symptoms - Patient Data Vitals - Most Recent: Last Vital Signs Temp 98.2 F 05/16/19 14:11 Pulse 78 05/16/19 15:02 Resp 17 05/16/19 15:02 BP 100/61 05/16/19 15:02 Pulse Ox 94 L 05/16/19 15:24 Weight - Most Recent: 49.442 kg I&O - Last 24 Hours: Intake & Output 05/16/19 05/16/19 05/16/19 06:59 14:59 22:59 Intake Total 1550 Balance 1550 Lab Results Last 24 Hours: Laboratory Results - last 24 hr 05/14/19 05/15/19 05/16/19 Range/Units 17:03 19:10 06:18 Sodium 145 (136-145) mmol/L Potassium 3.7 3.5 (3.5-5.1) mmol/L Chloride 108 H (98-107) mmol/L Carbon Dioxide 25.4 (21.0-32.0) mmol/L BUN 15 (7.0-18.0) mg/dL Creatinine 0.7 (0.6-1.0) mg/dL Est Cr Clr Drug Dosing 77.03 mL/min Estimated GFR (MDRD) > 60.0 ml/min Glucose 66 L (74-106) mg/dL Calcium 8.2 L (8.5-10.1) mg/dL Magnesium 1.7 L (1.8-2.4) mg/dL Vitamin D 25-Hydroxy 15.2 L (30.0-100.0) ng/mL Med Orders - Current: Current Medications Hydrocodone Bitart/Acetaminophen ([place] 325-5 Mg) 1 - 2 tab PO Q4H PRN PRN Reason: Pain Bisacodyl (Dulcolax) 10 mg RECTAL DAILY PRN PRN Reason: Constipation Docusate Sodium (Colace) 100 mg PO BID PRN PRN Reason: Constipation Hydromorphone HCl (Dilaudid) 1 mg IVPUSH Q1H PRN PRN Reason: Pain Last Admin: 05/16/19 07:57 Dose: 1 mg Hyoscyamine (Hyomax-Sl) 0.125 mg SL Q4H PRN PRN Reason: Pain Cefazolin Sodium/Dextrose 1 gm (/ Premix) 50 mls @ 100 mls/hr IV ONCALL [facility] Pantoprazole Sodium 40 mg/ (Sodium Chloride) 10 mls @ 300 mls/hr IV DAILY [facility] Last Admin: 05/16/19 08:00 Dose: 300 mls/hr Lactated Ringer's (Ringers, Lactated) 1,000 mls @ 75 mls/hr IV ASDIRECTED [facility] Last Admin: 05/16/19 09:12 Dose: 75 mls/hr Ondansetron HCl (Zofran) 4 mg IVPUSH Q4H PRN PRN Reason: Nausea Last Admin: 05/15/19 21:41 Dose: 4 mg Discontinued Medications Hydrocodone Bitart/Acetaminophen ([place] 325-5 Mg) 1 - 2 tab PO Q4H PRN PRN Reason: Pain Last Admin: 05/14/19 16:14 Dose: 2 tab Dexamethasone (Dexamethasone) Confirm Administered Dose 20 mg .ROUTE .STK-MED ONE Stop: 05/16/19 09:57 Fentanyl (Sublimaze) 50 mcg IVPUSH Q5M PRN PRN Reason: Pain Last Admin: 05/14/19 12:59 Dose: 50 mcg Fentanyl (Sublimaze) Confirm Administered Dose 250 mcg .ROUTE .STK-MED ONE Stop: 05/16/19 07:28 Glycopyrrolate (Robinul) Confirm Administered Dose 0.4 mg .ROUTE .STK-MED ONE Stop: 05/16/19 07:27 Sodium Chloride (Normal Saline) 1,000 mls @ 999 mls/hr IV STAT ONE Stop: 05/14/19 11:41 Last Admin: 05/14/19 10:42 Dose: 999 mls/hr Potassium Chloride 40 meq/ (Sodium Chloride) 500 mls @ 125 mls/hr IV ONETIME ONE Stop: 05/14/19 19:18 Potassium Chloride/Sodium Chloride (Normal Saline With 20 Meq Kcl) 1,000 mls @ 75 mls/hr IV ASDIRECTED [facility] Last Admin: 05/14/19 16:23 Dose: 75 mls/hr Potassium Chloride 40 meq/ (Sodium Chloride) 500 mls @ 125 mls/hr IV ONETIME ONE Stop: 05/14/19 19:18 Last Admin: 05/14/19 17:18 Dose: 125 mls/hr Magnesium Sulfate 2 gm/ Premix 50 mls @ 50 mls/hr IV ONETIME ONE Stop: 05/14/19 17:24 Last Admin: 05/14/19 16:56 Dose: 50 mls/hr Potassium Chloride/Sodium Chloride (Normal Saline With 20 Meq Kcl) 1,000 mls @ 100 mls/hr IV Q10H [facility] Last Admin: 05/15/19 06:55 Dose: 100 mls/hr Potassium Chloride/Sodium Chloride (Normal Saline With 20 Meq Kcl) 1,000 mls @ 125 mls/hr IV Q8H [facility] Stop: 05/15/19 17:14 Last Admin: 05/15/19 09:21 Dose: 125 mls/hr Magnesium Sulfate 2 gm/Potassium Chloride 40 meq/Sodium Chloride 524 mls @ 100 mls/hr IV ONETIME ONE Stop: 05/16/19 13:13 Last Admin: 05/16/19 09:18 Dose: 100 mls/hr Ketorolac Tromethamine (Toradol) 60 mg IM ONETIME ONE Stop: 05/14/19 08:28 Last Admin: 05/14/19 08:32 Dose: 60 mg Lidocaine (Xylocaine-Mpf 2%) Confirm Administered Dose 5 ml .ROUTE .STK-MED ONE Stop: 05/16/19 07:27 Midazolam HCl (Versed 1 Mg/Ml) Confirm Administered Dose 2 mg .ROUTE .STK-MED ONE Stop: 05/16/19 07:28 Midazolam HCl (Versed 1 Mg/Ml) Confirm Administered Dose 2 mg .ROUTE .STK-MED ONE Stop: 05/16/19 09:49 Morphine Sulfate (Morphine) 2 mg IVPUSH ONETIME ONE Stop: 05/14/19 10:32 Last Admin: 05/14/19 10:44 Dose: 2 mg Morphine Sulfate (Morphine) 2 mg IVPUSH ONETIME ONE Stop: 05/14/19 11:40 Last Admin: 05/14/19 11:43 Dose: 2 mg Neostigmine Methylsulfate (Neostigmine) Confirm Administered Dose 5 mg .ROUTE .STK-MED ONE Stop: 05/16/19 07:27 Ondansetron HCl (Zofran) 4 mg IVPUSH ONETIME ONE Stop: 05/14/19 10:32 Last Admin: 05/14/19 10:43 Dose: 4 mg Ondansetron HCl (Zofran) Confirm Administered Dose 4 mg .ROUTE .STK-MED ONE Stop: 05/16/19 07:27 Phenylephrine HCl (Cb-Synephrine) Confirm Administered Dose 10 mg .ROUTE .STK- MED ONE Stop: 05/16/19 12:33 Potassium Chloride (Klor-Con M20) 40 meq PO ONETIME ONE Stop: 05/14/19 15:04 Last Admin: 05/14/19 16:10 Dose: Not Given Potassium Chloride (Potassium Chloride) 40 meq PO ONETIME ONE Stop: 05/14/19 15:20 Last Admin: 05/14/19 15:59 Dose: 40 meq Propofol (Diprivan 20 Ml) Confirm Administered Dose 200 mg .ROUTE .STK-MED ONE Stop: 05/16/19 07:28 Rocuronium [place] (Zemuron) Confirm Administered Dose 100 mg .ROUTE .STK-MED ONE Stop: 05/16/19 10:59 Ropivacaine (Naropin 0.5%) Confirm Administered Dose 30 ml .ROUTE .STK-MED ONE Stop: 05/16/19 09:55 Sugammadex Sodium (Bridion) Confirm Administered Dose 200 mg .ROUTE .STK-MED ONE Stop: 05/16/19 09:55 - Exam General: Alert, Oriented, Cooperative Lungs: Clear to Auscultation, Normal Respiratory Effort Cardiovascular: Regular Rate, Regular Rhythm GI/Abdominal Exam: Normal Bowel Sounds, Soft, Non-Tender Extremities: Normal Inspection, Normal Range of Motion, Non-Tender, No Pedal Edema Wound/Incisions: Healing Well Neurological: No New Focal Deficit Psy/Mental Status: Alert, Normal Affect, Normal Mood Consult PN Assessment/Plan Procedures: Procedures ASSAY OF LIPASE (02/22/19) ASSAY OF MAGNESIUM (07/05/17) ASSAY OF TROPONIN QUANT (07/05/17) ASSAY THYROID STIM HORMONE (07/05/17) C-REACTIVE PROTEIN (11/14/15) CHEST X-RAY 2VW FRONTAL&LATL (07/29/15) CHORIONIC GONADOTROPIN ASSAY (02/22/19) COMP SCREEN MAMMOGRAM ADD-ON (05/30/15) COMPLETE CBC W/AUTO DIFF WBC (02/22/19) COMPREHEN METABOLIC PANEL (02/22/19) CREATINE MB FRACTION (07/05/17) CT ABD & PELV W/CONTRAST (02/22/19) CT HEAD/BRAIN W/O DYE (07/05/17) CT MAXILLOFACIAL W/O DYE (08/11/18) CT NECK SPINE W/O DYE (10/15/15) CULTURE SCREEN ONLY (07/29/15) EEG AWAKE AND DROWSY (11/18/15) ELECTROCARDIOGRAM TRACING (02/22/19) EMERGENCY DEPT VISIT (02/22/19) EMERGENCY DEPT VISIT (07/05/17) EMERGENCY DEPT VISIT (03/11/17) EMERGENCY DEPT VISIT (10/15/15) EMERGENCY DEPT VISIT (07/29/15) EXTREMITY STUDY (07/05/17) HYDRATE IV INFUSION ADD-ON (02/22/19) INFLUENZA ASSAY W/OPTIC (07/29/15) MRI BRAIN STEM W/O & W/DYE (07/05/17) PROTHROMBIN TIME (07/05/17) ROUTINE VENIPUNCTURE (07/05/17) SMEAR WET [place] SALINE/INK (05/29/15) STREP A AG IA (07/29/15) THER/PROPH/DIAG INJ IV PUSH (02/22/19) THER/PROPH/DIAG INJ SC/IM (02/12/17) TISSUE EXAM BY PATHOLOGIST (06/25/15) TX/PRO/DX INJ NEW DRUG ADDON (02/22/19) URINALYSIS AUTO W/O SCOPE (02/22/19) URINALYSIS AUTO W/SCOPE (07/29/15) VITAMIN B-12 (07/05/17) X-RAY EXAM CHEST 1 VIEW (07/05/17) X-RAY EXAM CHEST 2 VIEWS (02/22/19) (1) Left humeral fracture SNOMED Code(s): 43399048 Code(s): S42.302A - UNSP FRACTURE OF SHAFT OF HUMERUS, LEFT ARM, INIT Current Visit: Yes Qualifiers: Encounter type: initial encounter Humerus Location: surgical neck Fracture type: closed Fracture morphology: 3-part Qualified Code(s): S42.232A - 3-part fracture of surgical neck of left humerus, initial encounter for closed fracture (2) Hypokalemia SNOMED Code(s): 97217450 Code(s): E87.6 - HYPOKALEMIA Priority: High Current Visit: Yes (3) Hypomagnesemia SNOMED Code(s): 293699198 Code(s): E83.42 - HYPOMAGNESEMIA Priority: High Current Visit: Yes (4) Hx of laparoscopic gastric banding SNOMED Code(s): 125921068 Code(s): Z98.84 - BARIATRIC SURGERY STATUS Priority: Low Current Visit: Yes (5) Anemia SNOMED Code(s): 327790271 Code(s): D64.9 - ANEMIA, UNSPECIFIED Current Visit: No Qualifiers: Anemia type: unspecified type Qualified Code(s): D64.9 - Anemia, unspecified (6) Constipation SNOMED Code(s): 33547117 Code(s): K59.00 - CONSTIPATION, UNSPECIFIED Current Visit: No Qualifiers: Constipation type: unspecified constipation type Qualified Code(s): K59.00 - Constipation, unspecified Problem List Initiated/Reviewed/Updated: Yes Plan: This 44 year old female admitted for L humeral fracture, hospitalist service consulted for hypokalemia management. 1. L humeral fracture: Per Orthopedics 2. Hypokalemia: Supplement IV due to NPO status, add Magnesium as well. Have follow up with PCP for recheck on tuesday. Encourage to make smoothies with high potassium products if possible. VTE prophylaxis; SCDs
[2019-05-16] MEDS: Acetaminophen/oxyCODONE 325-5 MG Tab PO PRN (18:34)
[2019-05-16] MEDS: Ondansetron 4 MG/2 ML SDV IVPUSH PRN (19:17)
[2019-05-16] MEDS: ceFAZolin 1 GM in Premix Bag 1 BAG IV SCH (21:32)
[2019-05-16] MEDS: Gabapentin 300 MG Cap PO SCH (21:37)
[2019-05-16] MEDS ORDERED: Ondansetron 4 MG/2 ML SDV IVPUSH ONE (22:19)
[2019-05-17] MEDS: HYDROmorphone 1 MG/ML Syringe IVPUSH PRN ×4 (00:35→10:23)
[2019-05-17] MEDS: ceFAZolin 1 GM in Premix Bag 1 BAG IV SCH (04:26)
[2019-05-17] MEDS: Lactated Ringers 1,000 ML IV SCH (06:15)
[2019-05-17] MEDS: Gabapentin 300 MG Cap PO SCH (06:17)
[2019-05-17 06:26] LABS: BLOOD UREA NITROGEN,BUN 14 mg/dL (7.0-18.0); CARBON DIOXIDE,CO2 23.3 mmol/L (21.0-32.0); CHLORIDE,CL 109 mmol/L (98-107); GLUCOSE RANDOM 92 mg/dL (74-106); POTASSIUM,K 4.4 mmol/L (3.5-5.1); SODIUM,NA 144 mmol/L (136-145)
--- NOTE | 2019-05-17 07:12 | PCM48HPAN ---
Post Anesthesia Note - EVALUATION WITHIN 48HRS OF ANESTHETIC Vital Signs in Normal Range: Yes Patient Participated in Evaluation: Yes Respiratory Function Stable: Yes Airway Patent: Yes Cardiovascular Function Stable: Yes Hydration Status Stable: Yes Pain Control Satisfactory: Yes Nausea and Vomiting Control Satisfactory: Yes Mental Status Recovered: Yes Vital Signs: Last Vital Signs Temp 36.7 C 05/17/19 04:00 Pulse 84 05/17/19 04:00 Resp 16 05/17/19 04:00 BP 111/76 05/17/19 04:00 Pulse Ox 96 05/17/19 04:00
--- NOTE | 2019-05-17 07:30 | PCM.DCSUM1 ---
Discharge Summary - Hospital Course HPI Initial Comments: 44 yo female left two part proximal humerus fx, closed with hypokalemia s/p lap band Diagnosis: Stroke: No - Discharge Data Discharge Date: 05/17/19 Discharge Disposition: Home, Self-Care 01 Condition: Stable - Referral to Home Health Primary Care Physician: Siena Eubanks NP - Discharge Diagnosis/Problem(s) (1) Hypokalemia SNOMED Code(s): 77243061 ICD Code: E87.6 - HYPOKALEMIA Status: Acute Priority: High Current Visit: Yes (2) Left humeral fracture SNOMED Code(s): 67586478 ICD Code: S42.302A - UNSP FRACTURE OF SHAFT OF HUMERUS, LEFT ARM, INIT Status: Acute Current Visit: Yes Qualifiers: Encounter type: initial encounter Humerus Location: surgical neck Fracture type: closed Fracture morphology: 3-part Qualified Code(s): S42.232A - 3-part fracture of surgical neck of left humerus, initial encounter for closed fracture - Patient Summary/Data Operative Procedure(s) Performed: orif left humerus Complications: none Consults: Consultations 05/14/19 14:24 Consult to Physician [CONS] Routine 05/16/19 16:26 Consult to Occupational Therapy [OT Evaluation and Treatment] [CONS] Routine Consult to Physical Therapy [PT Evaluation and Treatment] [CONS] Routine - Patient Instructions Diet: Usual Diet as Tolerated Activity: Apply Ice, As Tolerated, Non Weight Bearing, No Strenuous Activities, Rest and Relax Today Driving: May Drive Today Showering/Bathing: May Shower Wound/Incision Care: Keep Operative Site/Wound Site Clean and Dry Wound/Incision, Other: change dressing tuesday, then every other day Notify Provider of: Fever, Increased Pain, Swelling and Redness, Drainage, Nausea and/or Vomiting - Discharge Plan *PRESCRIPTION DRUG MONITORING PROGRAM REVIEWED*: Yes *COPY OF PRESCRIPTION DRUG MONITORING REPORT IN PATIENT LORI: No Prescriptions/Med Rec: Calcium Carb/Vitamin D3/Vit K1 [Calcium + D Soft Chewable Tab] 1 each PO DAILY # 30 tab.chew Home Medications: Home Meds Hyoscyamine [Hyomax-SL] 0.125 mg PO Q4H PRN 05/14/19 [History] Metoclopramide [Reglan] 10 mg PO TID PRN 05/14/19 [History] oxyCODONE HCl/Acetaminophen [Percocet 5-325 mg Tablet] 1 each PO Q6HR PRN #56 tablet 05/16/19 [Rx] Calcium Carb/Vitamin D3/Vit K1 [Calcium + D Soft Chewable Tab] 1 each PO DAILY # 30 tab.chew 05/17/19 [Rx] Patient Handouts: Humerus Fracture Treated With ORIF, Care After, Hypomagnesemia, Hypokalemia Referrals: [facility] [Outside] Siena Eubanks NP [Primary Care Provider] - 05/23/19 3:00 pm Efraín Robertson DO [Physician] - - Discharge Summary/Plan Comment DC Time >30 min.: No - General Info Date of Service: 05/17/19 Admission Dx/Problem (Free Text: Admission Diagnosis/Problem Admission Diagnosis/Problem Closed fracture of proximal end of humerus Functional Status: Reports: Pain Controlled, Tolerating Diet, Ambulating, Urinating - Review of Systems General: Reports: No Symptoms HEENT: Reports: No Symptoms Pulmonary: Reports: No Symptoms Cardiovascular: Reports: No Symptoms Gastrointestinal: Reports: Nausea Genitourinary: Reports: No Symptoms Musculoskeletal: Reports: Shoulder Pain, Arm Pain Skin: Reports: No Symptoms Neurological: Reports: No Symptoms Psychiatric: Reports: No Symptoms - Patient Data Vitals - Most Recent: Last Vital Signs Temp 36.7 C 05/17/19 04:00 Pulse 84 05/17/19 04:00 Resp 16 05/17/19 04:00 BP 111/76 05/17/19 04:00 Pulse Ox 96 05/17/19 04:00 Weight - Most Recent: 50.6 kg I&O - Last 24 hours: Intake & Output 05/16/19 05/17/19 05/17/19 22:59 06:59 14:59 Intake Total 2300 550 Output Total 200 Balance 2100 550 Lab Results - Last 24 hrs: Laboratory Results - last 24 hr 05/17/19 Range/Units 05:52 Sodium 144 (136-145) mmol/L Potassium 4.4 (3.5-5.1) mmol/L Chloride 109 H (98-107) mmol/L Carbon Dioxide 23.3 (21.0-32.0) mmol/L BUN 14 (7.0-18.0) mg/dL Creatinine 0.8 (0.6-1.0) mg/dL Est Cr Clr Drug Dosing 70.24 mL/min Estimated GFR (MDRD) > 60.0 ml/min Glucose 92 (74-106) mg/dL Calcium 8.2 L (8.5-10.1) mg/dL Magnesium 1.8 (1.8-2.4) mg/dL Med Orders - Current: Current Medications Bisacodyl (Dulcolax) 10 mg RECTAL DAILY PRN PRN Reason: Constipation Docusate Sodium (Colace) 100 mg PO BID PRN PRN Reason: Constipation Gabapentin (Neurontin) 300 mg PO TID [facility] Last Admin: 05/17/19 06:17 Dose: 300 mg Hydromorphone HCl (Dilaudid) 1 mg IVPUSH Q1H PRN PRN Reason: Pain Last Admin: 05/17/19 04:24 Dose: 1 mg Hyoscyamine (Hyomax-Sl) 0.125 mg SL Q4H PRN PRN Reason: Pain Cefazolin Sodium/Dextrose 1 gm (/ Premix) 50 mls @ 100 mls/hr IV ONCALL [facility] Pantoprazole Sodium 40 mg/ (Sodium Chloride) 10 mls @ 300 mls/hr IV DAILY [facility] Last Admin: 05/16/19 08:00 Dose: 300 mls/hr Lactated Ringer's (Ringers, Lactated) 1,000 mls @ 75 mls/hr IV ASDIRECTED [facility] Last Admin: 05/17/19 06:15 Dose: 75 mls/hr Ondansetron HCl (Zofran) 4 mg IVPUSH Q4H PRN PRN Reason: Nausea Last Admin: 05/16/19 19:17 Dose: 4 mg Oxycodone/Acetaminophen (P[place] 325-5 Mg) 2 tab PO Q4H PRN PRN Reason: Pain (severe 7-10) Last Admin: 05/16/19 18:34 Dose: 2 tab Discontinued Medications Hydrocodone Bitart/Acetaminophen ([place] 325-5 Mg) 1 - 2 tab PO Q4H PRN PRN Reason: Pain Hydrocodone Bitart/Acetaminophen ([place] 325-5 Mg) 1 - 2 tab PO Q4H PRN PRN Reason: Pain Last Admin: 05/14/19 16:14 Dose: 2 tab Dexamethasone (Dexamethasone) Confirm Administered Dose 20 mg .ROUTE .STK-MED ONE Stop: 05/16/19 09:57 Fentanyl (Sublimaze) 50 mcg IVPUSH Q5M PRN PRN Reason: Pain Last Admin: 05/14/19 12:59 Dose: 50 mcg Fentanyl (Sublimaze) Confirm Administered Dose 250 mcg .ROUTE .STK-MED ONE Stop: 05/16/19 07:28 Glycopyrrolate (Robinul) Confirm Administered Dose 0.4 mg .ROUTE .STK-MED ONE Stop: 05/16/19 07:27 Sodium Chloride (Normal Saline) 1,000 mls @ 999 mls/hr IV STAT ONE Stop: 05/14/19 11:41 Last Admin: 05/14/19 10:42 Dose: 999 mls/hr Potassium Chloride 40 meq/ (Sodium Chloride) 500 mls @ 125 mls/hr IV ONETIME ONE Stop: 05/14/19 19:18 Potassium Chloride/Sodium Chloride (Normal Saline With 20 Meq Kcl) 1,000 mls @ 75 mls/hr IV ASDIRECTED [facility] Last Admin: 05/14/19 16:23 Dose: 75 mls/hr Potassium Chloride 40 meq/ (Sodium Chloride) 500 mls @ 125 mls/hr IV ONETIME ONE Stop: 05/14/19 19:18 Last Admin: 05/14/19 17:18 Dose: 125 mls/hr Magnesium Sulfate 2 gm/ Premix 50 mls @ 50 mls/hr IV ONETIME ONE Stop: 05/14/19 17:24 Last Admin: 05/14/19 16:56 Dose: 50 mls/hr Potassium Chloride/Sodium Chloride (Normal Saline With 20 Meq Kcl) 1,000 mls @ 100 mls/hr IV Q10H [facility] Last Admin: 05/15/19 06:55 Dose: 100 mls/hr Potassium Chloride/Sodium Chloride (Normal Saline With 20 Meq Kcl) 1,000 mls @ 125 mls/hr IV Q8H [facility] Stop: 05/15/19 17:14 Last Admin: 05/15/19 09:21 Dose: 125 mls/hr Magnesium Sulfate 2 gm/Potassium Chloride 40 meq/Sodium Chloride 524 mls @ 100 mls/hr IV ONETIME ONE Stop: 05/16/19 13:13 Last Admin: 05/16/19 09:18 Dose: 100 mls/hr Cefazolin Sodium/Dextrose 1 gm (/ Premix) 50 mls @ 100 mls/hr IV Q8H [facility] Stop: 05/17/19 04:29 Last Admin: 05/17/19 04:26 Dose: 100 mls/hr Ketorolac Tromethamine (Toradol) 60 mg IM ONETIME ONE Stop: 05/14/19 08:28 Last Admin: 05/14/19 08:32 Dose: 60 mg Lidocaine (Xylocaine-Mpf 2%) Confirm Administered Dose 5 ml .ROUTE .STK-MED ONE Stop: 05/16/19 07:27 Midazolam HCl (Versed 1 Mg/Ml) Confirm Administered Dose 2 mg .ROUTE .STK-MED ONE Stop: 05/16/19 07:28 Midazolam HCl (Versed 1 Mg/Ml) Confirm Administered Dose 2 mg .ROUTE .STK-MED ONE Stop: 05/16/19 09:49 Morphine Sulfate (Morphine) 2 mg IVPUSH ONETIME ONE Stop: 05/14/19 10:32 Last Admin: 05/14/19 10:44 Dose: 2 mg Morphine Sulfate (Morphine) 2 mg IVPUSH ONETIME ONE Stop: 05/14/19 11:40 Last Admin: 05/14/19 11:43 Dose: 2 mg Neostigmine Methylsulfate (Neostigmine) Confirm Administered Dose 5 mg .ROUTE .STK-MED ONE Stop: 05/16/19 07:27 Ondansetron HCl (Zofran) 4 mg IVPUSH ONETIME ONE Stop: 05/14/19 10:32 Last Admin: 05/14/19 10:43 Dose: 4 mg Ondansetron HCl (Zofran) Confirm Administered Dose 4 mg .ROUTE .STK-MED ONE Stop: 05/16/19 07:27 Ondansetron HCl (Zofran) 8 mg IVPUSH ONETIME ONE Stop: 05/16/19 22:20 Last Admin: 05/16/19 22:43 Dose: 8 mg Phenylephrine HCl (Cb-Synephrine) Confirm Administered Dose 10 mg .ROUTE .STK- MED ONE Stop: 05/16/19 12:33 Potassium Chloride (Klor-Con M20) 40 meq PO ONETIME ONE Stop: 05/14/19 15:04 Last Admin: 05/14/19 16:10 Dose: Not Given Potassium Chloride (Potassium Chloride) 40 meq PO ONETIME ONE Stop: 05/14/19 15:20 Last Admin: 05/14/19 15:59 Dose: 40 meq Propofol (Diprivan 20 Ml) Confirm Administered Dose 200 mg .ROUTE .STK-MED ONE Stop: 05/16/19 07:28 Rocuronium [place] (Zemuron) Confirm Administered Dose 100 mg .ROUTE .STK-MED ONE Stop: 05/16/19 10:59 Ropivacaine (Naropin 0.5%) Confirm Administered Dose 30 ml .ROUTE .STK-MED ONE Stop: 05/16/19 09:55 Sugammadex Sodium (Bridion) Confirm Administered Dose 200 mg .ROUTE .STK-MED ONE Stop: 05/16/19 09:55 - Exam General: Reports: Alert, Oriented, Cooperative, No Acute Distress HEENT: Reports: Pupils Equal, Pupils Reactive, EOMI, Mucous Membr. Moist/[place] Neck: Reports: Supple, Trachea Midline Lungs: Reports: Normal Respiratory Effort GI/Abdominal Exam: No Distention Extremities: Joint Swelling, Limited Range of Motion Skin: Reports: Warm, Dry, Intact Wound/Incisions: Reports: Healing Well, Dressing Dry and Intact Neurological: Reports: No New Focal Deficit Psy/Mental Status: Reports: Alert, Normal Affect, Normal Mood Discharge Operative/Procedures - Procedures Performed Operations: orif left proximal humerus
[2019-05-17] MEDS: Acetaminophen/oxyCODONE 325-5 MG Tab PO PRN (09:41)
[2019-05-17] MEDS: Pantoprazole 40 MG in Sodium Chloride 0.9% 10 ML IV SCH (09:45)
[2019-05-17] MEDS: Ondansetron 4 MG/2 ML SDV IVPUSH PRN (10:20)
[2019-05-17 12:13] VITALS: BP 95/54; PULSE 94
--- NOTE | 2019-05-18 11:41 | CR ---
EXAM DATE: 05/14/19 PATIENT'S AGE: 44 Left shoulder: Two fluoroscopic spot views were obtained of the left shoulder utilizing C-arm device. Comparison: No previous shoulder imaging. Fracture noted within the proximal humerus. Plate and screws are in place affixing the fracture. Fluoroscopy time given as 8.1 seconds. Impression: 1. Procedural study as noted above. Diagnostic code #2 This report was dictated in [place] Standard Time Report Signed by Proxy. LISA
== END 2019-05-17 13:48 | disposition home or self-care (01) ==
LOC: MW.ED 07:54 → MW.SDS 11:20 → MW.ICU 15:01 → MW.SDS 15:19 → MW.ICU 15:54 → UNDOADMOB 15:54 → MW.MS 05-15 20:44
PROVIDERS: ADMIT Orthopaedic Surgery; ATTEND Orthopaedic Surgery
DX: S42.222A 2-part displaced fracture of surgical neck of left humerus, initial encounter for closed fracture (principal); E87.6 Hypokalemia; G89.18 Other acute postprocedural pain; K21.9 Gastro-esophageal reflux disease without esophagitis; E83.42 Hypomagnesemia; D64.9 Anemia, unspecified; K59.09 Other constipation; W00.0XXA Fall on same level due to ice and snow, initial encounter; Z98.84 Bariatric surgery status; Z79.899 Other long term (current) drug therapy
CPT/HCPCS: 36415; 73030-26-LT; 73030-LT; 73080-26-LT; 73080-LT; 76000; 76000-26; 80048; 80053; 81025; 82306; 82607; 83735; 84100; 84132; 85025; 85610; 93005; 96361; 96365; 96366; 96368; 96372; 96374; 96375; 96376; 99285-25; A9270-GY; C9113; G0378; J0690; J1100; J1170; J1885; J2001; J2250; J2270; J2370; J2405; J2704; J2795; J3010; J3475; J3480; J3490; J7030; J7040; J7050; J7120

== ENCOUNTER 2019-05-22 10:39 | Emergency (ER) | payer BC ==
--- NOTE | 2019-05-22 10:48 | EDM.PDOC ---
ED HPI GENERAL MEDICAL PROBLEM - General Chief Complaint: ENT Problem Stated Complaint: NO APPETITE Time Seen by Provider: 05/22/19 10:43 Source of Information: Reports: Patient History Limitations: Reports: No Limitations - History of Present Illness INITIAL COMMENTS - FREE TEXT/NARRATIVE: HISTORY AND PHYSICAL: History of present illness: Patient is a 44 year old female who presents to the ED with c/o nausea, vomiting and fatigue post humerus surgery. Patient states she fell on Tuesday () and came into the ED; at that time her Potassium was low and she was admitted to Med/Surg for Potassium replacement. She had surgery on 05/16/2019 and discharged to home. She has not been able to eat or drink anything since surgery. She called the surgeon, who told her due to intubation during surgery - this was normal and would likely resolve in a few days. States it is not getting any better. Has a full sensation to her epigastrium; which she is concerned it could be her Lap Band (which she had placed in 2011) but it is not currently inflated. States when she eats "I just feel it sit there" and shortly after will have "dark mucousy" emesis. She is "hungry... I just can't keep anything down long enough". Unsure of the last time she had a BM. Patient denies any fever, chills, headache, change in vision, syncope or near syncope. Denies any chest pain, back pain, shortness of breath or cough. Denies any abdominal pain, diarrhea, constipation or dysuria. Review of systems: As per history of present illness and below otherwise all systems reviewed and negative. Past medical history: As per history of present illness and as reviewed below otherwise noncontributory. Surgical history: As per history of present illness and as reviewed below otherwise noncontributory. Social history: See social history for further information Family history: As per history of present illness and as reviewed below otherwise noncontributory. Physical exam: General: Well developed and extremely thin appearing 44 year old female. A&O x3. Nontoxic appearing and in no acute distress. VSS. HEENT: Atraumatic, normocephalic, pupils equal and reactive bilaterally, negative for conjunctival pallor or scleral icterus, mucous membranes moist, throat clear, neck supple, nontender, trachea midline. No drooling or trismus noted. No meningeal signs. No hot potato voice noted. Lungs: Clear to auscultation, breath sounds equal bilaterally, chest nontender. Heart: S1S2, regular rate and rhythm without overt murmur Abdomen: Semi-firm nondistended, epigastric tenderness. Negative for masses or hepatosplenomegaly. Negative for costovertebral tenderness. Pelvis: Stable nontender. Skin: Intact, warm, dry. No lesions or rashes noted. Extremities: Atraumatic, moves all extremities per self without difficulty or deficits, negative for cords or calf pain. Neurovascular unremarkable. Neuro: Awake, alert, oriented. Cranial nerves II through XII unremarkable. Cerebellum unremarkable. Motor and sensory unremarkable throughout. Exam nonfocal. Notes: Patient expresses her frustration about her continued weight loss, nausea and intermittent vomiting over the past several months, stating "no one will give me answers to why I'm loosing weight". CT abd/pelvis that was done on 02/22/2019 showed fecal retention, hepatic cysts, and cholelithiasis. She states she finally did call her Bariatric surgeon and has an appointment on 05/24/2019. Patient declined the IV zofran stating she wanted to vomit "whatever needs to come up". CT shows no PE. CT abd/pelvis shows the LAP band is displaced around the pyloris. Abnormal enhancement of the spleen. SEE report. Dr Barry has been involved in this case. Dr Lo, general surgeon door person was made aware of this case. He recommends this patient being transferred to facility that has bariatric surgeon/higher level of care. Patient's initial surgery was done in [facility] in 2011. Her follow up appointment is with Dr Shaw, bariatric surgeon, at [facility]. I attempted to call to have patient transferred to their facility; they are not accepting any patients at this time as they are at capacity. [facility] contacted. Dr Saldana, general surgeon accepting this patient. Spoke with Dr Chamberlain in the ED, who is aware of this patient. Will go via ground EMS. Vital signs are stable. Patient was made aware and is agreeable to plan of care. Diagnostics: CBC, CMP, UA, Magnesium, UA, Abd/Pelvis, blood cultures, lactic, D.Dimer, CT chest Therapeutics: Zofran (declined), IV fluids, Potassium 40meQ IV Impression: Abnormal CT, r/o splenic injury Hypokalemia Leukocytosis History of gastric lap-band Plan: Transfer to [facility] via ALS crew Definitive disposition and diagnosis as appropriate pending reevaluation and review of above. Upper Abdominal Pain Score (Numeric/FACES): 8 - Related Data Allergies Allergy/AdvReac Type Severity Reaction Status Date / Time No Known Allergies Allergy Verified 05/22/19 10:43 Home Meds: Home Meds Hyoscyamine [Hyomax-SL] 0.125 mg PO Q4H PRN 05/14/19 [History] Metoclopramide [Reglan] 10 mg PO TID PRN 05/14/19 [History] oxyCODONE HCl/Acetaminophen [Percocet 5-325 mg Tablet] 1 each PO Q6HR PRN #56 tablet 05/16/19 [Rx] Calcium Carb/Vitamin D3/Vit K1 [Calcium + D Soft Chewable Tab] 1 each PO DAILY # 30 tab.chew 05/17/19 [Rx] oxyCODONE 5 mg PO Q6H #280 ml 05/17/19 [Rx] Past Medical History - Past Health History Medical/Surgical History: Denies Medical/Surgical History HEENT History: Reports: Other (See Below) Other HEENT History: uses reading glasses Cardiovascular History: Reports: None Respiratory History: Reports: None Gastrointestinal History: Reports: Chronic Constipation, GERD Genitourinary History: Reports: Renal Calculus Other Genitourinary History: passed on her own [employer] History: Reports: Musculoskeletal History: Reports: None Neurological History: Reports: Other (See Below) Other Neuro History: hx of motion sickness Psychiatric History: Reports: None Endocrine/Metabolic History: Reports: None Hematologic History: Reports: None Immunologic History: Reports: None Oncologic (Cancer) History: Reports: None Dermatologic History: Reports: None - Infectious Disease History Infectious Disease History: Reports: None - Past Surgical History Head Surgeries/Procedures: Reports: None HEENT Surgical History: Reports: None Respiratory Surgical History: Reports: None GI Surgical History: Reports: Bariatric Procedure Other GI Surgeries/Procedures: was hoping to have Lap Band removed in the near future because of extreme GERD Female Surgical History: Reports: Breast Reduction, Section Musculoskeletal Surgical History: Reports: None Dermatological Surgical History: Reports: None Social & Family History - Family History Family Medical History: Noncontributory - Caffeine Use Caffeine Use: Reports: Coffee ED ROS ENT - Review of Systems Review Of Systems: Comprehensive ROS is negative, except as noted in HPI. ED EXAM, ENT - Physical Exam Exam: See Below (See dictation) Course - Vital Signs Last Recorded V/S: Last Vital Signs Temp 98.1 F 05/22/19 10:44 Pulse 90 05/22/19 13:24 Resp 16 05/22/19 13:24 BP 108/59 L 05/22/19 13:24 Pulse Ox 99 05/22/19 13:24 - Orders/Labs/Meds Orders: Active Orders 24 hr Category Date Time Status EKG Documentation Completion [RC] STAT Care 05/22/19 13:02 Active CULTURE BLOOD [BC] Stat Lab 05/22/19 12:38 Received CULTURE BLOOD [BC] Stat Lab 05/22/19 12:46 Received Potassium Chloride Riders [KCL 40 MEQ in Water 100 ML] Med 05/22/19 12:26 Active 40 meq Premix Bag 1 bag IV ONETIME Sodium Chloride 0.9% [Normal Saline] 1,000 ml Med 05/22/19 12:46 Active IV STAT Blood Culture x2 Reflex Set [OM.PC] Stat Oth 05/22/19 12:18 Ordered Medication Orders Potassium Chloride 40 meq/ (Premix) 100 mls @ 25 mls/hr IV ONETIME ONE Stop: 05/22/19 16:25 Last Admin: 05/22/19 13:38 Dose: 25 mls/hr Sodium Chloride (Normal Saline) 1,000 mls @ 150 mls/hr IV STAT ONE Stop: 05/22/19 19:25 Last Admin: 05/22/19 13:49 Dose: 150 mls/hr Labs: Laboratory Tests 05/22/19 05/22/19 05/22/19 Range/Units 11:20 11:20 11:20 WBC 15.71 H (4.0-11.0) K/uL RBC 3.97 L (4.30-5.90) M/uL Hgb 11.1 L (12.0-16.0) g/dL Hct 33.9 L (36.0-46.0) % MCV 85.4 (80.0-98.0) fL MCH 28.0 (27.0-32.0) pg MCHC 32.7 (31.0-37.0) g/dL RDW Std Deviation 53.0 (28.0-62.0) fl RDW Coeff of Rosalind 17 H (11.0-15.0) % Plt Count 452 H (150-400) K/uL MPV 9.30 (7.40-12.00) fL Neut % (Auto) 89.9 H (48.0-80.0) % Lymph % (Auto) 7.0 L (16.0-40.0) % [place] % (Auto) 2.7 (0.0-15.0) % Eos % (Auto) 0.1 (0.0-7.0) % Baso % (Auto) 0.3 (0.0-1.5) % Neut # (Auto) 14.1 H (1.4-5.7) K/uL Lymph # (Auto) 1.1 (0.6-2.4) K/uL [place] # (Auto) 0.4 (0.0-0.8) K/uL Eos # (Auto) 0.0 (0.0-0.7) K/uL Baso # (Auto) 0.0 (0.0-0.1) K/uL Nucleated RBC % 0.0 /100WBC Nucleated RBCs # 0 K/uL D-Dimer, Quantitative (0.0-0.50) mg/L FEU Sodium 139 (136-145) mmol/L Potassium 2.5 L (3.5-5.1) mmol/L Chloride 97 L (98-107) mmol/L Carbon Dioxide 31.7 (21.0-32.0) mmol/L BUN 19 H (7.0-18.0) mg/dL Creatinine 0.8 (0.6-1.0) mg/dL Est Cr Clr Drug Dosing 62.32 mL/min Estimated GFR (MDRD) > 60.0 ml/min Glucose 116 H (74-106) mg/dL Calcium 9.4 (8.5-10.1) mg/dL Magnesium 1.7 L (1.8-2.4) mg/dL Total Bilirubin 0.6 (0.2-1.0) mg/dL AST 21 (15-37) IU/L ALT 26 (14-63) IU/L Alkaline Phosphatase 44 L (46-116) U/L Total Protein 8.9 H (6.4-8.2) g/dL Albumin 3.7 (3.4-5.0) g/dL Globulin 5.2 H (2.6-4.0) g/dL Albumin/Globulin Ratio 0.7 L (0.9-1.6) Urine Color ORANGE Urine Appearance SLT CLOUDY Urine pH 6.0 (5.0-8.0) Ur Specific Malcolm 1.020 (1.001-1.035) Urine Protein 30 H (NEGATIVE) mg/dL Urine Glucose (UA) NEGATIVE (NEGATIVE) mg/dL Urine Ketones >=80 (NEGATIVE) mg/dL Urine Occult Blood LARGE H (NEGATIVE) Urine Nitrite NEGATIVE (NEGATIVE) Urine Bilirubin MODERATE H (NEGATIVE) Urine Ictotest POSITIVE Urine Urobilinogen 1.0 (<2.0) EU/dL Ur Leukocyte Esterase NEGATIVE (NEGATIVE) Urine RBC 3-5 (0-2/HPF) Urine WBC 3-5 (0-5/HPF) Ur Epithelial Cells MODERATE (NONE-FEW) Amorphous Sediment MODERATE (NEGATIVE) Urine Bacteria FEW (NEGATIVE) Urine Mucus HEAVY (NONE-MOD) Urine HCG, Qual (NEGATIVE) 05/22/19 05/22/19 Range/Units 11:20 11:20 WBC (4.0-11.0) K/uL RBC (4.30-5.90) M/uL Hgb (12.0-16.0) g/dL Hct (36.0-46.0) % MCV (80.0-98.0) fL MCH (27.0-32.0) pg MCHC (31.0-37.0) g/dL RDW Std Deviation (28.0-62.0) fl RDW Coeff of Rosalind (11.0-15.0) % Plt Count (150-400) K/uL MPV (7.40-12.00) fL Neut % (Auto) (48.0-80.0) % Lymph % (Auto) (16.0-40.0) % [place] % (Auto) (0.0-15.0) % Eos % (Auto) (0.0-7.0) % Baso % (Auto) (0.0-1.5) % Neut # (Auto) (1.4-5.7) K/uL Lymph # (Auto) (0.6-2.4) K/uL [place] # (Auto) (0.0-0.8) K/uL Eos # (Auto) (0.0-0.7) K/uL Baso # (Auto) (0.0-0.1) K/uL Nucleated RBC % /100WBC Nucleated RBCs # K/uL D-Dimer, Quantitative 7.83 H (0.0-0.50) mg/L FEU Sodium (136-145) mmol/L Potassium (3.5-5.1) mmol/L Chloride (98-107) mmol/L Carbon Dioxide (21.0-32.0) mmol/L BUN (7.0-18.0) mg/dL Creatinine (0.6-1.0) mg/dL Est Cr Clr Drug Dosing mL/min Estimated GFR (MDRD) ml/min Glucose (74-106) mg/dL Calcium (8.5-10.1) mg/dL Magnesium (1.8-2.4) mg/dL Total Bilirubin (0.2-1.0) mg/dL AST (15-37) IU/L ALT (14-63) IU/L Alkaline Phosphatase (46-116) U/L Total Protein (6.4-8.2) g/dL Albumin (3.4-5.0) g/dL Globulin (2.6-4.0) g/dL Albumin/Globulin Ratio (0.9-1.6) Urine Color Urine Appearance Urine pH (5.0-8.0) Ur Specific Malcolm (1.001-1.035) Urine Protein (NEGATIVE) mg/dL Urine Glucose (UA) (NEGATIVE) mg/dL Urine Ketones (NEGATIVE) mg/dL Urine Occult Blood (NEGATIVE) Urine Nitrite (NEGATIVE) Urine Bilirubin (NEGATIVE) Urine Ictotest Urine Urobilinogen (<2.0) EU/dL Ur Leukocyte Esterase (NEGATIVE) Urine RBC (0-2/HPF) Urine WBC (0-5/HPF) Ur Epithelial Cells (NONE-FEW) Amorphous Sediment (NEGATIVE) Urine Bacteria (NEGATIVE) Urine Mucus (NONE-MOD) Urine HCG, Qual NEGATIVE (NEGATIVE) Meds: Medications Generic Name Dose Route Start Last Admin Trade Name Freq PRN Reason Stop Dose Admin Potassium Chloride 40 meq/ 100 mls @ 25 mls/hr 05/22/19 12:26 05/22/19 13:38 Premix IV 05/22/19 16:25 25 mls/hr ONETIME ONE Administration Sodium Chloride 1,000 mls @ 150 mls/hr 05/22/19 12:46 05/22/19 13:49 Normal Saline IV 05/22/19 19:25 150 mls/hr STAT ONE Administration Discontinued Medications Generic Name Dose Route Start Last Admin Trade Name Freq PRN Reason Stop Dose Admin Sodium Chloride 1,000 mls @ 999 mls/hr 05/22/19 10:50 05/22/19 11:31 Normal Saline IV 05/22/19 11:50 999 mls/hr STAT ONE Administration Iopamidol 104 ml 05/22/19 13:16 05/22/19 13:16 Isovue Multipack-370 (76%) IVPUSH 05/22/19 13:17 104 ml ONETIME STA Administration Ketorolac Tromethamine 30 mg 05/22/19 10:50 Toradol IVPUSH 05/22/19 10:51 ONETIME ONE Ondansetron HCl 4 mg 05/22/19 10:50 05/22/19 11:31 Zofran IVPUSH 05/22/19 10:51 Not Given ONETIME ONE Departure - Departure Time of Disposition: 14:11 Disposition: DC/Tfer to Acute Hospital 02 Clinical Impression: Hypokalemia, Abnormal CT of the abdomen, Leukocytosis - Discharge Information Referrals: Ernesto Naranjo MD [Primary Care Provider] - Forms: ED Department Discharge Sepsis Event Note - Focused Exam Vital Signs: Vital Signs Temp Pulse Resp BP Pulse Ox 05/22/19 13:24 90 16 108/59 L 99 05/22/19 10:44 98.1 F 121 H 18 105/75 95 Date Exam was Performed: 05/22/19 Time Exam was Performed: 14:06 - My Orders Last 24 Hours: My Active Orders 05/22/19 12:18 Blood Culture x2 Reflex Set [OM.PC] Stat 05/22/19 12:26 Potassium Chloride Riders [KCL 40 MEQ in Water 100 ML] 40 meq Premix Bag 1 bag IV ONETIME 05/22/19 12:38 CULTURE BLOOD [BC] Stat 05/22/19 12:46 CULTURE BLOOD [BC] Stat Sodium Chloride 0.9% [Normal Saline] 1,000 ml IV STAT 05/22/19 13:02 EKG Documentation Completion [RC] STAT - Assessment/Plan Last 24 Hours: My Active Orders 05/22/19 12:18 Blood Culture x2 Reflex Set [OM.PC] Stat 05/22/19 12:26 Potassium Chloride Riders [KCL 40 MEQ in Water 100 ML] 40 meq Premix Bag 1 bag IV ONETIME 05/22/19 12:38 CULTURE BLOOD [BC] Stat 05/22/19 12:46 CULTURE BLOOD [BC] Stat Sodium Chloride 0.9% [Normal Saline] 1,000 ml IV STAT 05/22/19 13:02 EKG Documentation Completion [RC] STAT
[2019-05-22] MEDS ORDERED: Ondansetron 4 MG/2 ML SDV IVPUSH ONE (10:50)
[2019-05-22] MEDS ORDERED: Sodium Chloride 0.9% 1,000 ML IV ONE ×2 (10:50→12:46)
[2019-05-22] MEDS ORDERED: Ketorolac 30 MG/ML SDV IVPUSH ONE (10:50)
--- NOTE | 2019-05-22 11:55 | CR ---
EXAM DATE: 05/22/19 PATIENT'S AGE: 44 Chest: Portable view of the chest was obtained. Comparison: Prior chest x-ray of 02/22/19. Lap band is present. Heart size and mediastinum are normal. Lungs are clear. Plate and screws affix previous proximal left humeral fracture. Scoliosis is noted within the spine. Impression: 1. Findings as noted above. 2. Nothing acute is seen on portable chest x-ray. Diagnostic code #2 This report was dictated in [place] Standard Time Report Signed by Proxy. LISA
[2019-05-22 12:06] LABS: BLOOD UREA NITROGEN,BUN 19 mg/dL (7.0-18.0); CARBON DIOXIDE,CO2 31.7 mmol/L (21.0-32.0); CHLORIDE,CL 97 mmol/L (98-107); GLUCOSE RANDOM 116 mg/dL (74-106); POTASSIUM,K 2.5 mmol/L (3.5-5.1); SODIUM,NA 139 mmol/L (136-145)
[2019-05-22] MEDS ORDERED: Potassium Chloride Riders 40 MEQ in Premix Bag 1 BAG IV ONE (12:26)
--- NOTE | 2019-05-22 13:15 | CT ---
EXAM DATE: 05/22/19 PATIENT'S AGE: 44 CT abdomen and pelvis Technique: Multiple axial sections were obtained from a above the dome of the diaphragm inferiorly through the pubic symphysis. Intravenous contrast was utilized. There is a small amount of contrast seen within the colon. Comparison: Prior CT abdomen and pelvis study of 02/22/19. Findings: Visualized lung bases show nothing acute. Low density lesion showing some peripheral enhancement is seen within the posterior right lobe of the liver most likely representing a hemangioma measuring 2.7 cm in size. This is a stable finding from prior CT exam. Cyst is also noted within the liver which appears stable. This cyst measures 1.3 cm. Adrenal glands show no nodule. Pancreas appears within normal limits. Kidneys show symmetric contrast enhancement. Very minimal low density finding is seen within the upper right kidney measuring 5 mm in size. This is also stable from previous exam. LAP-BAND is seen. Position of the LAP-BAND is unchanged and is located at the level of the pylorus. Fluid filled proximal stomach is seen. Irregular enhancement is noted of the spleen. Aorta shows no aneurysm. Multiple gallstones are seen within the gallbladder. Aorta shows no aneurysm. No retroperitoneal adenopathy or mesenteric abnormalities are seen. No pelvic mass or adenopathy is seen. Bone window settings were reviewed which are within normal limits for the patient's age. Appendix not definitely visualized. Impression: 1. LAP-BAND which appears to be located at the level of the pylorus causing fluid-filled dilated proximal stomach. This finding is stable from prior study and please correlate if position of this LAP-BAND is intended. 2. Multiple gallstones. 3. Abnormal enhancement of the spleen which may represent phase of contrast administration as well as splenic infarct. Findings could also represent splenic laceration if patient has had recent trauma. 4. Other findings as noted above. Diagnostic code #3 This report was dictated in [place] Standard Time Report Signed by Proxy. [facility]
[2019-05-22] MEDS ORDERED: Iopamidol 755 MG/ML 500 ML Multipack Bottle IVPUSH STA (13:16)
[2019-05-22 13:24] VITALS: BP 108/59; PULSE 90
--- NOTE | 2019-05-22 13:41 | CT ---
EXAM DATE: 05/22/19 PATIENT'S AGE: 44 CT chest Technique: Multiple axial sections through the chest were obtained. Intravenous contrast was utilized. Study performed as a pulmonary angiogram protocol. Findings: Pulmonary arteries are well opacified. No filling defects are seen to indicate pulmonary embolism. No pericardial thickening is seen. Lungs are clear. No acute parenchymal change is seen. No pleural effusions are noted. Mediastinum and hilar regions appear within normal limits. No adenopathy is appreciated. No coronary artery calcification is identified. No pericardial thickening is seen. Bone window settings were reviewed which appear within normal limits for the patient's age. Impression: 1. No findings of pulmonary embolism. 2. Nothing acute is appreciated on CT study of the chest. Diagnostic code #1 This report was dictated in [place] Standard Time Report Signed by Proxy. [facility]
== END 2019-05-22 13:53 ==
LOC: MW.ED 10:39
DX: E87.6 Hypokalemia (principal); D72.829 Elevated white blood cell count, unspecified; R93.5 Abnormal findings on diagnostic imaging of other abdominal regions, including retroperitoneum
CPT/HCPCS: 36415; 71045; 71275; 74177; 80053; 81001; 81025; 83735; 85025; 85379; 87040; 93005; 96361; 96374; 99285; J3480; J7030; Q9967

== ENCOUNTER 2019-10-27 16:34 | Observation (INO) | payer SELFPAY ==
[2019-10-27] MEDS ORDERED: Sodium Chloride 0.9% 20 ML SDV FLUSH SCH (16:45)
[2019-10-27] MEDS: Nitroglycerin 0.4 MG Tab.SL SL PRN ×3 (16:49→17:10)
--- NOTE | 2019-10-27 16:53 | EDM.PDOC ---
ED HPI GENERAL MEDICAL PROBLEM - General Chief Complaint: Chest Pain Stated Complaint: POSSIBLE HEART ATTACK Time Seen by Provider: 10/27/19 16:40 Source of Information: Reports: Patient History Limitations: Reports: No Limitations - History of Present Illness INITIAL COMMENTS - FREE TEXT/NARRATIVE: This 44 year old female is admitted to the ED with a chief complaint of substernal chest pain with pain into her left arm that started last night. She states that the pain comes and goes but today, the pain as been constant. The pain is sharp to dull. She states that she took 2 regular Aspirin today but with no relief. She complains of SOB with her associated chest pain. She has a negative heart history. She has no cardiac risk factors (hypertension, diabetes mellitus or hyperlipidemia). The patient denies any other complaints or symptoms at this time. chest Pain Score (Numeric/FACES): 2 - Related Data Allergies Allergy/AdvReac Type Severity Reaction Status Date / Time No Known Allergies Allergy Verified 10/27/19 17:02 Home Meds: Home Meds . 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: Musculoskeletal History: Reports: None Neurological History: Reports: Other (See Below) Other Neuro History: hx of motion sickness Psychiatric History: Reports: None Endocrine/Metabolic History: Reports: None Hematologic History: Reports: None Immunologic History: Reports: None Oncologic (Cancer) History: Reports: None Dermatologic History: Reports: None - Infectious Disease History Infectious Disease History: Reports: None - Past Surgical History Head Surgeries/Procedures: Reports: None HEENT Surgical History: Reports: None Respiratory Surgical History: Reports: None GI Surgical History: Reports: Bariatric Procedure Other GI Surgeries/Procedures: was hoping to have Lap Band removed in the near future because of extreme GERD Female Surgical History: Reports: Breast Reduction, Section Musculoskeletal Surgical History: Reports: None Dermatological Surgical History: Reports: None Social & Family History - Family History Family Medical History: Noncontributory - Caffeine Use Caffeine Use: Reports: Coffee ED ROS GENERAL - Review of Systems Review Of Systems: Comprehensive ROS is negative, except as noted in HPI. ED EXAM, GENERAL - Physical Exam Exam: See Below Exam Limited By: No Limitations General Appearance: Alert, WD/WN, Mild Distress (complaining of chest pain that is sharp with pain into her left arm.) Eye Exam: Bilateral Eye: EOMI, Normal Inspection, PERRL Ears: Normal External Exam, Normal Canal Nose: Normal Inspection, Normal Mucosa Throat/Mouth: Normal Inspection, Normal Oropharynx Head: Atraumatic, Normocephalic Neck: Normal Inspection, Supple. No: Carotid Bruit Respiratory/Chest: No Respiratory Distress, Lungs Clear, Normal Breath Sounds, Chest Non-Tender Cardiovascular: Normal Peripheral Pulses, Regular Rate, Rhythm, No Edema, No Gallop, No Murmur, No Rub Peripheral Pulses: 3+: Radial (L), Dorsalis Pedis (L), Dorsalis Pedis (R), 4+: Carotid (L), Carotid (R), Radial (R) GI/Abdominal: Normal Bowel Sounds, Soft, Non-Tender, No Organomegaly, No Abnormal Bruit, No Mass (Female) Exam: Deferred Rectal (Female) Exam: Deferred Back Exam: Normal Inspection, Full Range of Motion Extremities: Normal Inspection, Normal Range of Motion, Normal Capillary Refill Neurological: Alert, Oriented (times 4), CN II-XII Intact, Normal Cognition, Normal Reflexes, No Motor/Sensory Deficits Psychiatric: Normal Affect, Normal Mood Skin Exam: Warm, Dry, Intact, Normal Color, No Rash Lymphatic: No Adenopathy Course - Vital Signs Text/Narrative:: I reviewed the patients normal ECG, Troponin 1 and chest x-ray. She states that her chest pain was relieved with one nitro SL. I discussed this with Dr. Pritchett at 5:22PM. She will be admitted for further evaluation. The patient agrees with the admission plan. Last Recorded V/S: Last Vital Signs Temp 97.5 F 10/27/19 16:35 Pulse 78 10/27/19 16:35 Resp 20 10/27/19 16:35 BP 115/64 10/27/19 17:10 Pulse Ox 98 10/27/19 16:35 - Orders/Labs/Meds Orders: Active Orders 24 hr Category Date Time Status B-TYPE NATRIURETIC PEPTIDE,BNP [CHEM] Stat Lab 10/27/19 16:40 Received Sodium Chloride 0.9% [Normal Saline] Med 10/27/19 16:45 Active 20 ml FLUSH ASDIRECTED Medication Orders Sodium Chloride (Normal Saline) 20 ml FLUSH ASDIRECTED GENNY Labs: Laboratory Tests 10/27/19 10/27/19 Range/Units 16:40 16:40 WBC 7.85 (4.0-11.0) K/uL RBC 4.05 L (4.30-5.90) M/uL Hgb 10.5 L (12.0-16.0) g/dL Hct 33.6 L (36.0-46.0) % MCV 83.0 (80.0-98.0) fL MCH 25.9 L (27.0-32.0) pg MCHC 31.3 (31.0-37.0) g/dL RDW Std Deviation 65.2 H (28.0-62.0) fl RDW Coeff of Rosalind 21 H (11.0-15.0) % Plt Count 405 H (150-400) K/uL MPV 8.70 (7.40-12.00) fL Neut % (Auto) 72.2 (48.0-80.0) % Lymph % (Auto) 20.9 (16.0-40.0) % [place] % (Auto) 5.6 (0.0-15.0) % Eos % (Auto) 0.8 (0.0-7.0) % Baso % (Auto) 0.5 (0.0-1.5) % Neut # (Auto) 5.7 (1.4-5.7) K/uL Lymph # (Auto) 1.6 (0.6-2.4) K/uL [place] # (Auto) 0.4 (0.0-0.8) K/uL Eos # (Auto) 0.1 (0.0-0.7) K/uL Baso # (Auto) 0.0 (0.0-0.1) K/uL Nucleated RBC % 0.0 /100WBC Nucleated RBCs # 0 K/uL Sodium 131 L (136-145) mmol/L Potassium 3.5 (3.5-5.1) mmol/L Chloride 96 L (98-107) mmol/L Carbon Dioxide 24.7 (21.0-32.0) mmol/L BUN 9 (7.0-18.0) mg/dL Creatinine 0.8 (0.6-1.0) mg/dL Est Cr Clr Drug Dosing 70.24 mL/min Estimated GFR (MDRD) > 60.0 ml/min Glucose 143 H (74-106) mg/dL Calcium 8.5 (8.5-10.1) mg/dL Total Bilirubin 0.2 (0.2-1.0) mg/dL AST 12 L (15-37) IU/L ALT 17 (14-63) IU/L Alkaline Phosphatase 57 (46-116) U/L Troponin I < 0.050 (0.000-0.056) ng/mL Total Protein 7.8 (6.4-8.2) g/dL Albumin 3.4 (3.4-5.0) g/dL Globulin 4.4 H (2.6-4.0) g/dL Albumin/Globulin Ratio 0.8 L (0.9-1.6) Meds: Medications Generic Name Dose Route Start Last Admin Trade Name Freq PRN Reason Stop Dose Admin Sodium Chloride 20 ml 10/27/19 16:45 Normal Saline FLUSH ASDIRECTED GENNY Discontinued Medications Generic Name Dose Route Start Last Admin Trade Name Freq PRN Reason Stop Dose Admin Nitroglycerin 0.4 mg 10/27/19 16:44 10/27/19 17:10 Nitrostat SL 0.4 mg Q5M PRN Administration Chest Pain Departure - Departure Time of Disposition: 17:27 Disposition: Refer to Observation Condition: Good Clinical Impression: Chest pain due to CAD Sepsis Event Note - Focused Exam Vital Signs: Vital Signs Temp Pulse Resp BP BP Pulse Ox 10/27/19 17:10 115/64 10/27/19 16:57 120/63 10/27/19 16:49 125/80 10/27/19 16:35 97.5 F 78 20 125/80 98 Date Exam was Performed: 10/27/19 Time Exam was Performed: 17:25 - My Orders Last 24 Hours: My Active Orders 10/27/19 16:40 B-TYPE NATRIURETIC PEPTIDE,BNP [CHEM] Stat 10/27/19 16:45 Sodium Chloride 0.9% [Normal Saline] 20 ml FLUSH ASDIRECTED - Assessment/Plan Last 24 Hours: My Active Orders 10/27/19 16:40 B-TYPE NATRIURETIC PEPTIDE,BNP [CHEM] Stat 10/27/19 16:45 Sodium Chloride 0.9% [Normal Saline] 20 ml FLUSH ASDIRECTED
--- NOTE | 2019-10-27 17:02 | CR ---
Chest: Portable view of the chest was obtained. Comparison: Prior chest x-ray of 05/22/19. Heart size and mediastinum are normal. Lungs are clear with no acute parenchymal change. Plate and screws are partially visualized within the proximal left humerus. Impression: 1. Nothing acute is appreciated on portable chest x-ray. Diagnostic code #1 This report was dictated in MDT
[2019-10-27 17:15] LABS: BLOOD UREA NITROGEN,BUN 9 mg/dL (7.0-18.0); CARBON DIOXIDE,CO2 24.7 mmol/L (21.0-32.0); CHLORIDE,CL 96 mmol/L (98-107); GLUCOSE RANDOM 143 mg/dL (74-106); POTASSIUM,K 3.5 mmol/L (3.5-5.1); SODIUM,NA 131 mmol/L (136-145)
--- NOTE | 2019-10-27 19:45 | PCM.HP.2 ---
H&P History of Present Illness - General Date of Service: 10/27/19 Admit Problem/Dx: Admission Diagnosis/Problem Admission Diagnosis/Problem Chest pain, rule out acute myocardial infarction - History of Present Illness Initial Comments - Free Text/Narative: 44 yo female with pmh of gastric lap band and fracture of her left humerus last May who presents with two day history of chest pain. Patient reports tingling pain in the left arm that radiates to her jaw. She does reports some shortness of breath with the pain and cold feet. She denies any cough or fevers. The pain lasted one hour yesterday but has been persistent today. In the ED she was evaluated and noted to have normal vital signs with EKG and troponin that does not show any signs of acute ischemia. chest Pain Score (Numeric/FACES): 3 - Related Data Allergies/Adverse Reactions: Allergies Allergy/AdvReac Type Severity Reaction Status Date / Time No Known Allergies Allergy Verified 10/27/19 19:40 Home Medications: Home Meds . 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: Musculoskeletal History: Reports: None Neurological History: Reports: Other (See Below) Other Neuro History: hx of motion sickness Psychiatric History: Reports: Anxiety Endocrine/Metabolic History: Reports: None Hematologic History: Reports: None Immunologic History: Reports: None Oncologic (Cancer) History: Reports: None Dermatologic History: Reports: None - Infectious Disease History Infectious Disease History: Reports: None - Past Surgical History Head Surgeries/Procedures: Reports: None HEENT Surgical History: Reports: None Respiratory Surgical History: Reports: None GI Surgical History: Reports: Bariatric Procedure Other GI Surgeries/Procedures: Had lapband removed 05/23/2019 Female Surgical History: Reports: Breast Reduction, Section Neurological Surgical History: Reports: None Musculoskeletal Surgical History: Reports: None Dermatological Surgical History: Reports: None Social & Family History - Family History Family Medical History: Noncontributory Cardiac: Reports: [place] Other Cardiac Family History: Father from a heart attack OBGYN: Reports: - Tobacco Use Smoking Status *Q: Never Smoker Second Hand Smoke Exposure: No - Caffeine Use Caffeine Use: Reports: Coffee - Alcohol Use Days Per Week of Alcohol Use: 1 Number of Drinks Per Day: 0 Total Drinks Per Week: 0 Date of Last Drink: 10/24/19 Time of Last Drink: 05:00 - Recreational Drug Use Recreational Drug Use: No H&P Review of Systems - Review of Systems: Review Of Systems: Comprehensive ROS is negative, except as noted in HPI. Exam - Exam Exam: See Below - Vital Signs Vital Signs: Last Vital Signs Temp 36.1 C 10/27/19 18:00 Pulse 75 10/27/19 18:00 Resp 18 10/27/19 18:00 BP 111/53 L 10/27/19 18:00 Pulse Ox 98 10/27/19 18:00 Weight: 65.4 kg - Exam General: Alert, Oriented HEENT: Mucosa Moist & [place] Lungs: Clear to Auscultation, Normal Respiratory Effort Cardiovascular: Regular Rate, Regular Rhythm GI/Abdominal Exam: Soft, Non-Tender Extremities: Non-Tender, No Pedal Edema Skin: Warm, Dry, Intact Neurological: Cranial Nerves Intact. No: Focal Deficit - Patient Data Lab Results Last 24 hrs: Laboratory Results - last 24 hr 10/27/19 10/27/19 10/27/19 Range/Units 16:40 16:40 16:40 WBC 7.85 (4.0-11.0) K/uL RBC 4.05 L (4.30-5.90) M/uL Hgb 10.5 L (12.0-16.0) g/dL Hct 33.6 L (36.0-46.0) % MCV 83.0 (80.0-98.0) fL MCH 25.9 L (27.0-32.0) pg MCHC 31.3 (31.0-37.0) g/dL RDW Std Deviation 65.2 H (28.0-62.0) fl RDW Coeff of Rosalind 21 H (11.0-15.0) % Plt Count 405 H (150-400) K/uL MPV 8.70 (7.40-12.00) fL Neut % (Auto) 72.2 (48.0-80.0) % Lymph % (Auto) 20.9 (16.0-40.0) % [place] % (Auto) 5.6 (0.0-15.0) % Eos % (Auto) 0.8 (0.0-7.0) % Baso % (Auto) 0.5 (0.0-1.5) % Neut # (Auto) 5.7 (1.4-5.7) K/uL Lymph # (Auto) 1.6 (0.6-2.4) K/uL [place] # (Auto) 0.4 (0.0-0.8) K/uL Eos # (Auto) 0.1 (0.0-0.7) K/uL Baso # (Auto) 0.0 (0.0-0.1) K/uL Nucleated RBC % 0.0 /100WBC Nucleated RBCs # 0 K/uL Sodium 131 L (136-145) mmol/L Potassium 3.5 (3.5-5.1) mmol/L Chloride 96 L (98-107) mmol/L Carbon Dioxide 24.7 (21.0-32.0) mmol/L BUN 9 (7.0-18.0) mg/dL Creatinine 0.8 (0.6-1.0) mg/dL Est Cr Clr Drug Dosing 70.24 mL/min Estimated GFR (MDRD) > 60.0 ml/min Glucose 143 H (74-106) mg/dL Calcium 8.5 (8.5-10.1) mg/dL Total Bilirubin 0.2 (0.2-1.0) mg/dL AST 12 L (15-37) IU/L ALT 17 (14-63) IU/L Alkaline Phosphatase 57 (46-116) U/L Troponin I < 0.050 (0.000-0.056) ng/mL B-Natriuretic Peptide 36 (<100) PG/ML Total Protein 7.8 (6.4-8.2) g/dL Albumin 3.4 (3.4-5.0) g/dL Globulin 4.4 H (2.6-4.0) g/dL Albumin/Globulin Ratio 0.8 L (0.9-1.6) Result Diagrams: 10/27/19 16:40 10/27/19 16:40 Sepsis Event Note - Evaluation Sepsis Screening Result: No Definite Risk - Focused Exam Vital Signs: Vital Signs Temp Pulse Resp BP BP Pulse Ox 10/27/19 18:00 36.1 C 75 18 111/53 L 98 10/27/19 17:10 115/64 10/27/19 16:57 120/63 10/27/19 16:49 125/80 10/27/19 16:35 36.4 C 78 20 125/80 98 Date Exam was Performed: 10/27/19 Time Exam was Performed: 19:41 Problem List Initiated/Reviewed/Updated: Yes Orders Last 24hrs: Active Orders 24 hr Category Date Time Status Admission Status [Patient Status] [ADT] Stat ADT 10/27/19 17:28 Active Antiembolic Devices [RC] PER UNIT ROUTINE Care 10/27/19 19:41 Active Oxygen Therapy [RC] PRN Care 10/27/19 19:40 Active Telemetry Monitoring [Cardiac Monitoring] [RC] . Care 10/27/19 18:26 Active DIRECTED Up ad Domenica [RC] ASDIRECTED Care 10/27/19 19:40 Active VTE/DVT Education [RC] PER UNIT ROUTINE Care 10/27/19 19:40 Active Vital Signs [RC] Q4H Care 10/27/19 19:40 Active Regular Diet [DIET] Diet 10/27/19 Dinner Active TROPONIN I [CHEM] Routine Lab 10/27/19 22:40 Ordered TROPONIN I [CHEM] Routine Lab 10/28/19 04:40 Ordered Sodium Chloride 0.9% [Normal Saline] Med 10/27/19 16:45 Active 20 ml FLUSH ASDIRECTED Sequential Compression Device [OM.PC] Per Unit Routine Oth 10/27/19 19:41 Ordered Resuscitation Status Routine Resus Stat 10/27/19 19:40 Ordered Medication Orders Sodium Chloride (Normal Saline) 20 ml FLUSH ASDIRECTED GENNY Assessment/Plan Comment:: 44 yo female who presents with atypical chest pain. We will monitor overnight on telemetry and trend cardiac enzymes.
[2019-10-27] MEDS ORDERED: Ketorolac 30 MG/ML SDV IVPUSH PRN (23:02)
[2019-10-27] MEDS ORDERED: Acetaminophen 325 MG Tab PO PRN (23:03)
[2019-10-28 07:48] LABS: BLOOD UREA NITROGEN,BUN 9 mg/dL (7.0-18.0); CARBON DIOXIDE,CO2 27.3 mmol/L (21.0-32.0); CHLORIDE,CL 103 mmol/L (98-107); GLUCOSE RANDOM 102 mg/dL (74-106); POTASSIUM,K 4.4 mmol/L (3.5-5.1); SODIUM,NA 136 mmol/L (136-145)
--- NOTE | 2019-10-28 08:34 | PCM.DCSUM1 ---
<Danay Rene - Last Filed: 10/28/19 11:22> Discharge Summary - Hospital Course HPI Initial Comments: Admission Date: 10/27/19 Discharge Date: 10/28/19 Admission Diagnosis: 1. Chest pain Discharge Diagnosis: 1. Chest pain- resolved Procedures: None Consults: None Hospital Course: The patient is a 44 year old female with no significant past medical history who presented to the ER with intermittent chest pain for the past two weeks. In the ER, she did not have leukocytosis or electrolyte abnormalities. CXR showed no acute cardiopulmonary process. EKG showed NSR with evidence of ischemia. Troponin was negative. She did get relief with dose of nitro in the ER. She was admitted to the medical floor for observation. She was monitored on telemetry without any significant events and her troponins were serially trended. After discussion, patient thought this may be due to anxiety as she has had a lot of personal issues the past month. By day of discharge, symptoms had resolved, and patient was ready to go home. Disposition: Home Discharge Condition: vitals stable, tolerating oral diet, ambulating without difficulty, symptom improvement Discharge Instructions: regular diet as tolerated, activity as tolerated, take medications as prescribed. Symptoms to report to physician include fever/chills , chest pain, shortness of breath, abdominal pain, erythema, drainage/discharge , or not improving as expected. Discharge Medications: Ativan 0.5 mg po daily prn anxiety Follow-up: 1. PCP 2. Stress test - Discharge Data Discharge Date: 10/28/19 Discharge Disposition: Home, Self-Care 01 Condition: Good - Referral to Home Health Primary Care Physician: Siena Eubanks NP - Discharge Plan *PRESCRIPTION DRUG MONITORING PROGRAM REVIEWED*: No *COPY OF PRESCRIPTION DRUG MONITORING REPORT IN PATIENT LORI: No Prescriptions/Med Rec: LORazepam [Ativan] 0.5 mg PO DAILY PRN 10 Days #10 tablet PRN Reason: Anxiety Home Medications: Home Meds LORazepam [Ativan] 0.5 mg PO DAILY PRN 10 Days #10 tablet 10/28/19 [Rx] Patient Handouts: Nonspecific Chest Pain, Adult, Panic Attack, Lorazepam tablets, Living With Anxiety Referrals: Siena Eubanks NP [Primary Care Provider] - (Please call the clinic on Tuesday to make a 'hospital follow up' for about one month from now ) - Discharge Summary/Plan Comment DC Time >30 min.: No - Patient Data Vitals - Most Recent: Last Vital Signs Temp 98.3 F 10/28/19 03:49 Pulse 68 10/28/19 03:49 Resp 17 10/28/19 03:49 BP 105/59 L 10/28/19 03:49 Pulse Ox 97 10/28/19 03:49 Weight - Most Recent: 65.4 kg I&O - Last 24 hours: Intake & Output 10/27/19 10/28/19 10/28/19 22:59 06:59 14:59 Intake Total 1500 Output Total 1600 Balance -100 Lab Results - Last 24 hrs: Laboratory Results - last 24 hr 10/27/19 10/27/19 10/27/19 Range/Units 16:40 16:40 16:40 WBC 7.85 (4.0-11.0) K/uL RBC 4.05 L (4.30-5.90) M/uL Hgb 10.5 L (12.0-16.0) g/dL Hct 33.6 L (36.0-46.0) % MCV 83.0 (80.0-98.0) fL MCH 25.9 L (27.0-32.0) pg MCHC 31.3 (31.0-37.0) g/dL RDW Std Deviation 65.2 H (28.0-62.0) fl RDW Coeff of Rosalind 21 H (11.0-15.0) % Plt Count 405 H (150-400) K/uL MPV 8.70 (7.40-12.00) fL Neut % (Auto) 72.2 (48.0-80.0) % Lymph % (Auto) 20.9 (16.0-40.0) % [place] % (Auto) 5.6 (0.0-15.0) % Eos % (Auto) 0.8 (0.0-7.0) % Baso % (Auto) 0.5 (0.0-1.5) % Neut # (Auto) 5.7 (1.4-5.7) K/uL Lymph # (Auto) 1.6 (0.6-2.4) K/uL [place] # (Auto) 0.4 (0.0-0.8) K/uL Eos # (Auto) 0.1 (0.0-0.7) K/uL Baso # (Auto) 0.0 (0.0-0.1) K/uL Nucleated RBC % 0.0 /100WBC Nucleated RBCs # 0 K/uL Sodium 131 L (136-145) mmol/L Potassium 3.5 (3.5-5.1) mmol/L Chloride 96 L (98-107) mmol/L Carbon Dioxide 24.7 (21.0-32.0) mmol/L BUN 9 (7.0-18.0) mg/dL Creatinine 0.8 (0.6-1.0) mg/dL Est Cr Clr Drug Dosing 70.24 mL/min Estimated GFR (MDRD) > 60.0 ml/min Glucose 143 H (74-106) mg/dL Calcium 8.5 (8.5-10.1) mg/dL Total Bilirubin 0.2 (0.2-1.0) mg/dL AST 12 L (15-37) IU/L ALT 17 (14-63) IU/L Alkaline Phosphatase 57 (46-116) U/L Troponin I < 0.050 (0.000-0.056) ng/mL B-Natriuretic Peptide 36 (<100) PG/ML Total Protein 7.8 (6.4-8.2) g/dL Albumin 3.4 (3.4-5.0) g/dL Globulin 4.4 H (2.6-4.0) g/dL Albumin/Globulin Ratio 0.8 L (0.9-1.6) 10/27/19 10/28/19 10/28/19 Range/Units 22:44 04:53 07:27 WBC 5.87 (4.0-11.0) K/uL RBC 4.05 L (4.30-5.90) M/uL Hgb 10.5 L (12.0-16.0) g/dL Hct 33.8 L (36.0-46.0) % MCV 83.5 (80.0-98.0) fL MCH 25.9 L (27.0-32.0) pg MCHC 31.1 (31.0-37.0) g/dL RDW Std Deviation 65.2 H (28.0-62.0) fl RDW Coeff of Rosalind 21 H (11.0-15.0) % Plt Count 358 (150-400) K/uL MPV 8.60 (7.40-12.00) fL Neut % (Auto) 62.0 (48.0-80.0) % Lymph % (Auto) 29.1 (16.0-40.0) % [place] % (Auto) 7.0 (0.0-15.0) % Eos % (Auto) 1.4 (0.0-7.0) % Baso % (Auto) 0.5 (0.0-1.5) % Neut # (Auto) 3.6 (1.4-5.7) K/uL Lymph # (Auto) 1.7 (0.6-2.4) K/uL [place] # (Auto) 0.4 (0.0-0.8) K/uL Eos # (Auto) 0.1 (0.0-0.7) K/uL Baso # (Auto) 0.0 (0.0-0.1) K/uL Nucleated RBC % 0.0 /100WBC Nucleated RBCs # 0 K/uL Sodium (136-145) mmol/L Potassium (3.5-5.1) mmol/L Chloride (98-107) mmol/L Carbon Dioxide (21.0-32.0) mmol/L BUN (7.0-18.0) mg/dL Creatinine (0.6-1.0) mg/dL Est Cr Clr Drug Dosing mL/min Estimated GFR (MDRD) ml/min Glucose (74-106) mg/dL Calcium (8.5-10.1) mg/dL Total Bilirubin (0.2-1.0) mg/dL AST (15-37) IU/L ALT (14-63) IU/L Alkaline Phosphatase (46-116) U/L Troponin I < 0.050 < 0.050 (0.000-0.056) ng/mL B-Natriuretic Peptide (<100) PG/ML Total Protein (6.4-8.2) g/dL Albumin (3.4-5.0) g/dL Globulin (2.6-4.0) g/dL Albumin/Globulin Ratio (0.9-1.6) 05/17/20 Range/Units 07:27 WBC (4.0-11.0) K/uL RBC (4.30-5.90) M/uL Hgb (12.0-16.0) g/dL Hct (36.0-46.0) % MCV (80.0-98.0) fL MCH (27.0-32.0) pg MCHC (31.0-37.0) g/dL RDW Std Deviation (28.0-62.0) fl RDW Coeff of Rosalind (11.0-15.0) % Plt Count (150-400) K/uL MPV (7.40-12.00) fL Neut % (Auto) (48.0-80.0) % Lymph % (Auto) (16.0-40.0) % [place] % (Auto) (0.0-15.0) % Eos % (Auto) (0.0-7.0) % Baso % (Auto) (0.0-1.5) % Neut # (Auto) (1.4-5.7) K/uL Lymph # (Auto) (0.6-2.4) K/uL [place] # (Auto) (0.0-0.8) K/uL Eos # (Auto) (0.0-0.7) K/uL Baso # (Auto) (0.0-0.1) K/uL Nucleated RBC % /100WBC Nucleated RBCs # K/uL Sodium 136 (136-145) mmol/L Potassium 4.4 (3.5-5.1) mmol/L Chloride 103 (98-107) mmol/L Carbon Dioxide 27.3 (21.0-32.0) mmol/L BUN 9 (7.0-18.0) mg/dL Creatinine 0.8 (0.6-1.0) mg/dL Est Cr Clr Drug Dosing 70.24 mL/min Estimated GFR (MDRD) > 60.0 ml/min Glucose 102 (74-106) mg/dL Calcium 8.3 L (8.5-10.1) mg/dL Total Bilirubin (0.2-1.0) mg/dL AST (15-37) IU/L ALT (14-63) IU/L Alkaline Phosphatase (46-116) U/L Troponin I (0.000-0.056) ng/mL B-Natriuretic Peptide (<100) PG/ML Total Protein (6.4-8.2) g/dL Albumin (3.4-5.0) g/dL Globulin (2.6-4.0) g/dL Albumin/Globulin Ratio (0.9-1.6) Med Orders - Current: Current Medications Acetaminophen (Tylenol) 650 mg PO Q6H PRN PRN Reason: Pain Last Admin: 10/27/19 23:29 Dose: 650 mg Ketorolac Tromethamine (Toradol) 30 mg IVPUSH Q6H PRN PRN Reason: Pain Stop: 11/01/19 23:02 Sodium Chloride (Normal Saline) 20 ml FLUSH ASDIRECTED GENNY Discontinued Medications Nitroglycerin (Nitrostat) 0.4 mg SL Q5M PRN PRN Reason: Chest Pain Last Admin: 10/27/19 17:10 Dose: 0.4 mg <Yuliana Orlando - Last Filed: 10/30/19 11:33> Discharge Summary - Referral to Home Health Primary Care Physician: Siena Eubanks NP - Discharge Summary/Plan Comment Discharge Summary/Plan Comment: I have seen and evaluated the patient and agree with the residents note unless specified in my note - Patient Data Vitals - Most Recent: Last Vital Signs Temp 36.7 C 10/28/19 11:00 Pulse 75 10/28/19 11:00 Resp 18 10/28/19 11:00 BP 124/74 10/28/19 11:00 Pulse Ox 98 10/28/19 11:00 Med Orders - Current: Current Medications Discontinued Medications Acetaminophen (Tylenol) 650 mg PO Q6H PRN PRN Reason: Pain Last Admin: 10/27/19 23:29 Dose: 650 mg Ketorolac Tromethamine (Toradol) 30 mg IVPUSH Q6H PRN PRN Reason: Pain Stop: 11/01/19 23:02 Last Admin: 10/28/19 13:33 Dose: 30 mg Nitroglycerin (Nitrostat) 0.4 mg SL Q5M PRN PRN Reason: Chest Pain Last Admin: 10/27/19 17:10 Dose: 0.4 mg Sodium Chloride (Normal Saline) 20 ml FLUSH ASDIRECTED GENNY
[2019-10-28 10:49] LABS: HEMOGLOBIN A1C 5.5 % (4.5-6.2)
[2019-10-28 13:03] VITALS: BP 124/74; PULSE 75
== END 2019-10-28 13:45 | disposition home or self-care (01) ==
LOC: MW.ED 16:34 → MW.MS 17:28
PROVIDERS: ADMIT Internal Medicine; ATTEND Internal Medicine
DX: R07.89 Other chest pain (principal); I99.8 Other disorder of circulatory system; K21.9 Gastro-esophageal reflux disease without esophagitis; F41.9 Anxiety disorder, unspecified; Z79.899 Other long term (current) drug therapy
CPT/HCPCS: 36415; 71045; 80048; 80053; 80061; 83036; 83880; 84443; 84484; 85025; 93005; 99285; A9270; J1885; 96374; 99283; G0378

== ENCOUNTER 2022-12-03 12:37 | Emergency (ER) | payer OTHER, MEDICAID ==
[2022-12-03] MEDS ORDERED: Sodium Chloride 0.9% 1,000 ML IV ONE (12:52)
[2022-12-03] MEDS ORDERED: Aspirin 81 MG Tab.Chew PO ONE (12:52)
[2022-12-03 13:01] LABS: BASOPHILS PERCENT AUTO 0.7 % (0.0-1.5); EOSINOPHILS ABSOLUTE AUTO 0.1 K/uL (0.0-0.7); EOSINOPHILS PERCENT AUTO 1.7 % (0.0-7.0); HEMATOCRIT 40.9 % (36.0-46.0); HEMOGLOBIN 13.7 g/dL (12.0-16.0); LYMPHOCYTES ABSOLUTE AUTO 1.9 K/uL (0.6-2.4); LYMPHOCYTES PERCENT AUTO 31.8 % (16.0-40.0); MEAN CORPUSCULAR HEMOGLOBIN 32.3 pg (27.0-32.0); MEAN CORPUSCULAR HGB CONC 33.5 g/dL (31.0-37.0); MEAN CORPUSCULAR VOLUME 96.5 fL (80.0-98.0); MONOCYTES ABSOLUTE AUTO 0.3 K/uL (0.0-0.8); MONOCYTES PERCENT AUTO 4.9 % (0.0-15.0); NEUTROPHILS ABSOLUTE AUTO 3.6 K/uL (1.4-5.7); NEUTROPHILS PERCENT AUTO 60.9 % (48.0-80.0); NRBC ABSOLUTE 0 K/uL; PLATELET COUNT,PLT 381 K/uL (150-400); RED BLOOD CELL COUNT 4.24 M/uL (4.30-5.90); WHITE BLOOD CELL COUNT,WBC 5.88 K/uL (4.0-11.0)
[2022-12-03] MEDS ORDERED: methylPREDNISolone Sodium Succinate 125 MG/2 ML SDV IVPUSH ONE (13:09)
[2022-12-03] MEDS ORDERED: Cyclobenzaprine 10 MG Tab PO ONE (13:09)
[2022-12-03 13:23] LABS: A/G RATIO 0.8 (0.9-1.6); ALANINE AMINOTRANSFERASE,ALT 27 IU/L (14-63); ALBUMIN 3.5 g/dL (3.4-5.0); ALKALINE PHOSPHATASE 80 U/L (46-116); ASPARTATE AMNIOTRANSFERASE,AST 20 IU/L (15-37); BILIRUBIN TOTAL 0.3 mg/dL (0.2-1.0); BLOOD UREA NITROGEN,BUN 10 mg/dL (7.0-18.0); CARBON DIOXIDE,CO2 28.3 mmol/L (21.0-32.0); CHLORIDE,CL 100 mmol/L (98-107); CREATININE 0.8 mg/dL (0.6-1.0); EST CRCL DRUG DOSING (CG) 68.02 mL/min; GLUCOSE RANDOM 101 mg/dL (74-106); MAGNESIUM 1.8 mg/dL (1.8-2.4); PROTEIN TOTAL,TP 7.8 g/dL (6.4-8.2); SODIUM,NA 139 mmol/L (136-145)
[2022-12-03 13:25] LABS: ESTIMATED GFR 91 mL/min (>60)
[2022-12-03 15:12] LABS: APPEARANCE,URINE CLEAR; BILIRUBIN,URINE NEGATIVE (NEGATIVE); COLOR,URINE YELLOW; GLUCOSE,URINE NEGATIVE (NEGATIVE); KETONES,URINE NEGATIVE (NEGATIVE); LEUKOCYTE ESTERASE,URINE NEGATIVE (NEGATIVE); NITRITE,URINE NEGATIVE (NEGATIVE); OCCULT BLOOD,URINE NEGATIVE (NEGATIVE); PH,URINE 6.5 (5.0-8.0); PROTEIN,URINE NEGATIVE (NEGATIVE); UROBILINOGEN,URINE 0.2 EU/dL (<2.0)
[2022-12-03 16:28] VITALS: BP 138/75; PULSE 67
== END 2022-12-03 16:28 | disposition home or self-care (01) ==
LOC: MW.ED 12:37
DX: S39.012A Strain of muscle, fascia and tendon of lower back, initial encounter (principal); R07.9 Chest pain, unspecified; Z98.890 Other specified postprocedural states
CPT/HCPCS: 36415; 70450; 71045; 71275; 80053; 81003; 83735; 84484; 85025; 85379; 86308; 93005; 96361; 96374; 99285; A9270; J2930; J7030; 93010; 99284